=== PATIENT | female | born 1950 | race African-American/Black ===

== ENCOUNTER → 2016-09-22 | Outpatient (CLI) | payer MEDICARE, MEDICAID ==
[2016-05-03 11:50] VITALS: BP 191/82
[~2016-09-22] MED LIST: AMLO5TAB2 PO; ASCO500T2 PO; ASPI-482 PO; ATOR10TA PO; BENA10TA2 PO; CALC-67 PO; CYAN10005 PO; CYCL1DRO EACHEYE; DEXT15DR5 EACHEYE; DIPH1TAB PO; DIPH25TA64 PO; DOXY100C14 PO; ESOM40CA PO; FERR-26 PO; FURO-69 PO; GLIM2TAB PO; HYDR-2678 PO; HYDR200T PO; IPRA3AMP23 IH; LEVO500T38 PO; LEVO50TA5 PO; LORA10CA PO; MAGN71.5 PO; MECL12.5 PO; METO-269 PO; METO10TA81 PO; MOME110A2 IH; MYCO500T PO; ONDA8TAB12 PO; OXYC-323 PO; PANT40TA3 PO; POTA10CA PO; PRED20TA PO; PREG100C PO; PROAIR HFA8.5 GM IH; SUCR1TAB PO; SUCR1TAB29 PO; TRIA340. TP; WARF5TAB PO; [UNRECOGNIZED DRUG - CODE] MC; [UNRECOGNIZED DRUG - CODE] PO; mycophenolate
--- NOTE | 2016-09-22 14:55 | RAD ---
Bilateral shoulders, 6 views, 09/22/2016: History: Fall, pain The bony structures are demineralized. A transvenous pacemaker overlies the right upper chest. No fracture or dislocation is identified. No significant arthritic changes are evident. IMPRESSION: 1. Demineralization. 2. No acute shoulder abnormality is detected.
== END | disposition home or self-care (01) ==
LOC: RAD 14:07
PROVIDERS: ATTEND Internal Medicine
DX: M25.512 Pain in left shoulder (principal); W10.9XXD Fall (on) (from) unspecified stairs and steps, subsequent encounter
CPT/HCPCS: 73030

== ENCOUNTER 2017-08-13 11:35 | Inpatient (IN) | payer MEDICARE, MEDICAID ==
[2017-08-13 12:37] LABS: BILIRUBIN,URINE NEGATIVE (NEG); CLARITY,URINE CLEAR; COLOR,URINE YELLOW; GLUCOSE,URINE NEGATIVE (NEG); NITRITE,URINE NEGATIVE (NEG); PH,URINE 5.5; PROTEIN,URINE NEGATIVE (NEG-TRACE); UROBILINOGEN,URINE 0.2 mg/dL (0.2 mg/dL)
[2017-08-13 12:47] LABS: BACTERIA,URINE 0 /HPF (0-FEW); HYALINE CASTS, URINE MODERATE /HPF; RBC,URINE 0 /HPF (0-2); WBC,URINE 0 /HPF (0-4)
[2017-08-13 12:52] LABS: BASO % 0 % (0-3); EOS # 0.2 x10^3/uL (0.0-0.7); EOS % 1 % (0-3); HEMATOCRIT 33.7 % (36.0-47.0); LYMPH # 0.7 x10^3/uL (1.0-4.8); LYMPH % 6 % (24-48); MEAN CORPUSCULAR HEMOGLOBIN 29 pg (25-35); MEAN CORPUSCULAR HGB CONC 33 g/dL (31-37); MEAN CORPUSCULAR VOLUME 90 fL (79-100); MONO # 0.8 x10^3/uL (0.0-1.1); MONO % 6 % (0-9); NEUT # 11.1 x10^3uL (1.8-7.7); NEUT % 87 % (31-73); PLATELET COUNT 282 x10^3/uL (140-400); RED BLOOD COUNT 3.75 x10^6/uL (3.50-5.40); RED CELL DISTRIBUTION WIDTH 14.6 % (11.5-14.5); WHITE BLOOD COUNT 12.8 x10^3/uL (4.0-11.0)
[2017-08-13 12:57] LABS: ADD MAN DIFF? YES
[2017-08-13 13:01] LABS: INFLUENZA A PATIENT NEGATIVE (NEGATIVE); INFLUENZA B PATIENT NEGATIVE (NEGATIVE); OBC FLU VALID
[2017-08-13 13:03] LABS: ANION GAP 3 (6-14); BLOOD UREA NITROGEN 20 mg/dL (7-20); BUN/CREATININE RATIO 18 (6-20); CARBON DIOXIDE 30 mmol/L (21-32); CHLORIDE 98 mmol/L (98-107); CREATININE 1.1 mg/dL (0.6-1.0); GFR 59.9; GLUCOSE 103 mg/dL (70-99); SODIUM 131 mmol/L (136-145)
[2017-08-13 13:05] LABS: INR 1.2 (0.8-1.1); PROTHROMBIN TIME PATIENT 14.1 SEC (11.7-14.0)
[2017-08-13] MEDS: ACETAMINOPHEN 325 MG TABLET. PO (13:08)
[2017-08-13 13:10] LABS: POTASSIUM 5.8 mmol/L (3.5-5.1)
[2017-08-13 13:11] LABS: LACTIC ACID 0.9 mmol/L (0.4-2.0)
[2017-08-13 13:18] LABS: ALBUMIN 3.7 g/dL (3.4-5.0); ALBUMIN/GLOBULIN RATIO 0.8 (1.0-1.7); ALK PHOS 128 U/L (46-116); ALT (SGPT) 13 U/L (14-59); AST (SGOT) 24 U/L (15-37); TOTAL BILIRUBIN 0.4 mg/dL (0.2-1.0); TOTAL PROTEIN 8.5 g/dL (6.4-8.2)
[2017-08-13] MEDS: IV NORMAL SALINE 500ML BAG 500 ML IV (14:31)
[2017-08-13] MEDS: SODIUM POLYSTYRENE SULFONATE 15 GM/60 ML ORAL.SUSP. PO (14:37)
[2017-08-13 14:41] LABS: % BANDS 8 % (0-9); % BASOS 1 % (0-3); % EOS 6 % (0-5); % LYMPHS 5 % (24-48); % MONOS 8 % (0-10); % SEGS 72 % (35-66); OVALOCYTES MOD; PLT ESTIMATE ADEQUATE (ADEQUATE)
[2017-08-13 14:42] LABS: SCHISTOCYTES FEW
[2017-08-13] MEDS: WARFARIN 5 MG TABLET. PO (15:20)
[2017-08-13] MEDS ORDERED: HYDROcodone/APAP 5/325MG 1 TAB TABLET PO (22:00)
[2017-08-13] MEDS: PREGABALIN 50 MG CAPSULE PO (22:51)
[2017-08-14 05:57] LABS: ADD MAN DIFF? NO
[2017-08-14 06:15] LABS: BASO % 1 % (0-3); EOS # 0.2 x10^3/uL (0.0-0.7); EOS % 2 % (0-3); HEMATOCRIT 29.4 % (36.0-47.0); HEMOGLOBIN 9.7 g/dL (12.0-15.5); LYMPH # 1.5 x10^3/uL (1.0-4.8); LYMPH % 18 % (24-48); MEAN CORPUSCULAR HEMOGLOBIN 30 pg (25-35); MEAN CORPUSCULAR HGB CONC 33 g/dL (31-37); MEAN CORPUSCULAR VOLUME 89 fL (79-100); MONO # 1.1 x10^3/uL (0.0-1.1); MONO % 14 % (0-9); NEUT # 5.2 x10^3uL (1.8-7.7); NEUT % 65 % (31-73); PLATELET COUNT 233 x10^3/uL (140-400); RED BLOOD COUNT 3.29 x10^6/uL (3.50-5.40)
[2017-08-14 06:49] LABS: ALBUMIN 3.2 g/dL (3.4-5.0); ALBUMIN/GLOBULIN RATIO 0.9 (1.0-1.7); ALK PHOS 109 U/L (46-116); ALT (SGPT) 10 U/L (14-59); ANION GAP 7 (6-14); AST (SGOT) 30 U/L (15-37); BLOOD UREA NITROGEN 12 mg/dL (7-20); BUN/CREATININE RATIO 17 (6-20); CALCIUM 9.9 mg/dL (8.5-10.1); CARBON DIOXIDE 30 mmol/L (21-32); CHLORIDE 103 mmol/L (98-107); CREATININE 0.7 mg/dL (0.6-1.0); GLUCOSE 101 mg/dL (70-99); SODIUM 140 mmol/L (136-145); TOTAL BILIRUBIN 0.4 mg/dL (0.2-1.0); TOTAL PROTEIN 6.8 g/dL (6.4-8.2)
[2017-08-14] MEDS: BUDESONIDE 0.5 MG/2 ML NEBU. NEB ×2 (06:57→19:54)
[2017-08-14] MEDS: IPRATRPIUM/ALBUTEROL 0.5/2.5MG 3 ML NEBU. IH ×4 (06:58→19:54)
[2017-08-14] MEDS: LEVOTHYROXINE 25 MCG TABLET. PO (07:30)
[2017-08-14] MEDS: SUCRALFATE 1 GM TABLET. PO ×2 (07:47→18:01)
[2017-08-14] MEDS: METOCLOPRAMIDE 10 MG TABLET. PO ×4 (07:47→21:18)
[2017-08-14] MEDS ORDERED: ALBUTEROL SULFATE 2.5 MG/3 ML NEBU. NEB (08:00)
[2017-08-14] MEDS: FERROUS SULFATE 325 MG TABLET. PO ×3 (09:23→21:19)
[2017-08-14] MEDS: ASCORBIC ACID 500 MG TABLET PO (09:23)
[2017-08-14] MEDS: MYCOPHENOLATE MOFETIL 250 MG CAPSULE. PO ×2 (09:23→21:00)
[2017-08-14] MEDS: HYDROXYCHLOROQUINE 200 MG TABLET PO ×2 (09:23→21:17)
[2017-08-14] MEDS: cycloSPORINE 0.05% OPTH 1 DROP DROPERETTE OU ×2 (09:23→21:16)
[2017-08-14] MEDS: METOPROLOL SUCC 24HR ER 50 MG TAB.ER.24H. PO (09:24)
[2017-08-14] MEDS: CETIRIZINE HCL 10 MG TABLET. PO (09:24)
[2017-08-14] MEDS: LISINOPRIL 5 MG TABLET. PO (09:24)
[2017-08-14] MEDS: FUROSEMIDE 20 MG TABLET PO (09:24)
[2017-08-14] MEDS: MAGNESIUM OXIDE 400 MG TABLET PO (09:24)
[2017-08-14] MEDS: ASPIRIN ENTERIC COATED 81 MG TABLET.DR. PO ×2 (09:24→21:18)
[2017-08-14] MEDS: CYANOCOBALAMIN (VITAMIN B-12) 1,000 MCG TABLET. PO (09:24)
[2017-08-14] MEDS: CALCIUM CARB/VIT D3 500/200 TABLET. PO (09:24)
[2017-08-14] MEDS: PREGABALIN 50 MG CAPSULE PO ×2 (09:25→21:17)
[2017-08-14] MEDS: POLYVINYL ALCOHOL 1.4% OPHTH SOLUTION 15ML BOTTLE. OU ×4 (11:43→21:15)
[2017-08-14] MEDS: IV NORMAL SALINE 1000ML BAG 1,000 ML IV (14:16)
[2017-08-14] MEDS: WARFARIN 4 MG TABLET. PO (18:01)
[2017-08-14] MEDS: ONDANSETRON ODT 4 MG TAB.RAPDIS. PO (18:39)
[2017-08-14] MEDS: oxyCODONE/APAP 5/325 1 TAB TABLET PO (18:39)
[2017-08-14] MEDS: PANTOPRAZOLE 40 MG TABLET.DR. PO (18:39)
[2017-08-14] MEDS: GLIMEPIRIDE 2 MG TABLET. PO (18:39)
[2017-08-14] MEDS: ATORVASTATIN CALCIUM 10 MG TABLET. PO (21:17)
[2017-08-14] MEDS: MONTELUKAST SODIUM 10 MG TABLET. PO (21:17)
[2017-08-15 04:41] LABS: ADD MAN DIFF? NO
[2017-08-15 04:49] LABS: BASO # 0.1 x10^3/uL (0.0-0.2); BASO % 1 % (0-3); EOS # 0.2 x10^3/uL (0.0-0.7); EOS % 2 % (0-3); HEMATOCRIT 26.5 % (36.0-47.0); HEMOGLOBIN 8.7 g/dL (12.0-15.5); LYMPH # 1.2 x10^3/uL (1.0-4.8); LYMPH % 14 % (24-48); MEAN CORPUSCULAR HEMOGLOBIN 30 pg (25-35); MEAN CORPUSCULAR HGB CONC 33 g/dL (31-37); MEAN CORPUSCULAR VOLUME 90 fL (79-100); MONO # 1.1 x10^3/uL (0.0-1.1); MONO % 13 % (0-9); NEUT % 70 % (31-73); PLATELET COUNT 221 x10^3/uL (140-400); RED BLOOD COUNT 2.95 x10^6/uL (3.50-5.40); RED CELL DISTRIBUTION WIDTH 14.1 % (11.5-14.5); WHITE BLOOD COUNT 8.5 x10^3/uL (4.0-11.0)
[2017-08-15 05:09] LABS: INR 1.2 (0.8-1.1); PROTHROMBIN TIME PATIENT 14.9 SEC (11.7-14.0)
[2017-08-15 05:12] LABS: ANION GAP 4 (6-14); BLOOD UREA NITROGEN 8 mg/dL (7-20); CALCIUM 9.2 mg/dL (8.5-10.1); CARBON DIOXIDE 33 mmol/L (21-32); CHLORIDE 103 mmol/L (98-107); CREATINE KINASE 15 U/L (26-192); CREATININE 0.7 mg/dL (0.6-1.0); GLUCOSE 95 mg/dL (70-99); POTASSIUM 3.6 mmol/L (3.5-5.1); SODIUM 140 mmol/L (136-145)
[2017-08-15] MEDS: METOCLOPRAMIDE 10 MG TABLET. PO ×4 (06:20→22:20)
[2017-08-15] MEDS: LEVOTHYROXINE 25 MCG TABLET. PO (06:20)
[2017-08-15] MEDS: PANTOPRAZOLE 40 MG TABLET.DR. PO (06:20)
[2017-08-15] MEDS: BUDESONIDE 0.5 MG/2 ML NEBU. NEB ×2 (07:32→18:26)
[2017-08-15] MEDS: IPRATRPIUM/ALBUTEROL 0.5/2.5MG 3 ML NEBU. IH ×4 (07:32→18:26)
[2017-08-15] MEDS: ASPIRIN ENTERIC COATED 81 MG TABLET.DR. PO ×2 (08:26→22:20)
[2017-08-15] MEDS: GLIMEPIRIDE 2 MG TABLET. PO (08:26)
[2017-08-15] MEDS: ASCORBIC ACID 500 MG TABLET PO (08:26)
[2017-08-15] MEDS: FERROUS SULFATE 325 MG TABLET. PO ×3 (08:27→22:19)
[2017-08-15] MEDS: CETIRIZINE HCL 10 MG TABLET. PO (08:27)
[2017-08-15] MEDS: METOPROLOL SUCC 24HR ER 50 MG TAB.ER.24H. PO (08:27)
[2017-08-15] MEDS: CALCIUM CARB/VIT D3 500/200 TABLET. PO (08:27)
[2017-08-15] MEDS: HYDROXYCHLOROQUINE 200 MG TABLET PO ×2 (08:28→22:20)
[2017-08-15] MEDS: LISINOPRIL 5 MG TABLET. PO (08:33)
[2017-08-15] MEDS: MAGNESIUM OXIDE 400 MG TABLET PO (08:33)
[2017-08-15] MEDS: SUCRALFATE 1 GM TABLET. PO ×2 (08:33→17:23)
[2017-08-15] MEDS: MYCOPHENOLATE MOFETIL 250 MG CAPSULE. PO (08:34)
[2017-08-15] MEDS: PREGABALIN 50 MG CAPSULE PO ×2 (08:38→22:19)
[2017-08-15] MEDS: IV NORMAL SALINE 1000ML BAG 1,000 ML IV (08:43)
[2017-08-15] MEDS: POLYVINYL ALCOHOL 1.4% OPHTH SOLUTION 15ML BOTTLE. OU ×4 (08:43→22:21)
[2017-08-15] MEDS: oxyCODONE/APAP 5/325 1 TAB TABLET PO ×4 (08:43→22:23)
[2017-08-15] MEDS: CYANOCOBALAMIN (VITAMIN B-12) 1,000 MCG TABLET. PO (09:00)
[2017-08-15] MEDS: cycloSPORINE 0.05% OPTH 1 DROP DROPERETTE OU ×2 (11:07→22:21)
[2017-08-15] MEDS: ONDANSETRON ODT 4 MG TAB.RAPDIS. PO (14:12)
[2017-08-15] MEDS: WARFARIN 4 MG TABLET. PO (17:24)
[2017-08-15] MEDS: MONTELUKAST SODIUM 10 MG TABLET. PO (22:19)
[2017-08-15] MEDS: ATORVASTATIN CALCIUM 10 MG TABLET. PO (22:19)
[2017-08-16] MEDS: IV NORMAL SALINE 1000ML BAG 1,000 ML IV ×2 (02:38→23:46)
[2017-08-16] MEDS: oxyCODONE/APAP 5/325 1 TAB TABLET PO ×5 (02:38→21:46)
[2017-08-16] MEDS: MECLIZINE HCL 12.5 MG TABLET. PO ×2 (02:38→21:52)
[2017-08-16 05:51] LABS: INR 1.3 (0.8-1.1); PROTHROMBIN TIME PATIENT 15.8 SEC (11.7-14.0)
[2017-08-16] MEDS: BUDESONIDE 0.5 MG/2 ML NEBU. NEB ×2 (07:13→18:22)
[2017-08-16] MEDS: IPRATRPIUM/ALBUTEROL 0.5/2.5MG 3 ML NEBU. IH ×4 (07:14→18:22)
[2017-08-16 07:28] LABS: POC GLUCOSE 84 mg/dL (70-99)
[2017-08-16] MEDS: METOCLOPRAMIDE 10 MG TABLET. PO ×4 (07:47→21:52)
[2017-08-16] MEDS: LEVOTHYROXINE 25 MCG TABLET. PO (07:47)
[2017-08-16] MEDS: PANTOPRAZOLE 40 MG TABLET.DR. PO (07:47)
[2017-08-16] MEDS: SUCRALFATE 1 GM TABLET. PO ×2 (07:47→16:37)
[2017-08-16] MEDS: CETIRIZINE HCL 10 MG TABLET. PO (09:59)
[2017-08-16] MEDS: LISINOPRIL 5 MG TABLET. PO (09:59)
[2017-08-16] MEDS: CYANOCOBALAMIN (VITAMIN B-12) 1,000 MCG TABLET. PO (09:59)
[2017-08-16] MEDS: MAGNESIUM OXIDE 400 MG TABLET PO (09:59)
[2017-08-16] MEDS: HYDROXYCHLOROQUINE 200 MG TABLET PO ×2 (10:00→21:46)
[2017-08-16] MEDS: CALCIUM CARB/VIT D3 500/200 TABLET. PO (10:00)
[2017-08-16] MEDS: GLIMEPIRIDE 2 MG TABLET. PO (10:00)
[2017-08-16] MEDS: ASPIRIN ENTERIC COATED 81 MG TABLET.DR. PO ×2 (10:00→21:46)
[2017-08-16] MEDS: ASCORBIC ACID 500 MG TABLET PO (10:00)
[2017-08-16] MEDS: METOPROLOL SUCC 24HR ER 50 MG TAB.ER.24H. PO (10:00)
[2017-08-16] MEDS: FERROUS SULFATE 325 MG TABLET. PO ×3 (10:01→21:46)
[2017-08-16] MEDS: POLYVINYL ALCOHOL 1.4% OPHTH SOLUTION 15ML BOTTLE. OU ×4 (10:03→21:45)
[2017-08-16] MEDS: cycloSPORINE 0.05% OPTH 1 DROP DROPERETTE OU ×2 (10:03→21:45)
[2017-08-16] MEDS: MYCOPHENOLATE MOFETIL 250 MG CAPSULE. PO (10:25)
[2017-08-16] MEDS: PREGABALIN 50 MG CAPSULE PO ×2 (10:25→21:46)
[2017-08-16] MEDS: VANCOMYCIN 2 GM in IV DEXTROSE 5% 500 ML IV (12:57)
[2017-08-16] MEDS: ONDANSETRON ODT 4 MG TAB.RAPDIS. PO (13:01)
[2017-08-16] MEDS: VANCOMYCIN PER PHARMACY MC (14:49)
[2017-08-16] MEDS: WARFARIN 4 MG TABLET. PO (16:37)
[2017-08-16] MEDS: MEROPENEM IV Push 500 MG VIAL. IVP ×2 (17:24→23:45)
[2017-08-16] MEDS ORDERED: MEROPENEM 500 MG in IV NORMAL SALINE 50ML 50 ML IV (18:00)
[2017-08-16] MEDS: MONTELUKAST SODIUM 10 MG TABLET. PO (21:46)
[2017-08-16] MEDS: ATORVASTATIN CALCIUM 10 MG TABLET. PO (21:46)
[2017-08-17] MEDS: MEROPENEM IV Push 500 MG VIAL. IVP ×3 (06:01→18:25)
[2017-08-17] MEDS: LEVOTHYROXINE 25 MCG TABLET. PO (06:01)
[2017-08-17 06:32] LABS: INR 1.5 (0.8-1.1); PROTHROMBIN TIME PATIENT 16.8 SEC (11.7-14.0)
[2017-08-17] MEDS: ONDANSETRON ODT 4 MG TAB.RAPDIS. PO (08:26)
[2017-08-17] MEDS: cycloSPORINE 0.05% OPTH 1 DROP DROPERETTE OU ×2 (08:29→22:02)
[2017-08-17] MEDS: CALCIUM CARB/VIT D3 500/200 TABLET. PO (08:30)
[2017-08-17] MEDS: POLYVINYL ALCOHOL 1.4% OPHTH SOLUTION 15ML BOTTLE. OU ×4 (08:30→22:18)
[2017-08-17] MEDS: PANTOPRAZOLE 40 MG TABLET.DR. PO (08:31)
[2017-08-17] MEDS: CYANOCOBALAMIN (VITAMIN B-12) 1,000 MCG TABLET. PO (08:31)
[2017-08-17] MEDS: GLIMEPIRIDE 2 MG TABLET. PO (08:31)
[2017-08-17] MEDS: HYDROXYCHLOROQUINE 200 MG TABLET PO ×2 (08:31→22:03)
[2017-08-17] MEDS: ASCORBIC ACID 500 MG TABLET PO (08:32)
[2017-08-17] MEDS: PREGABALIN 50 MG CAPSULE PO ×2 (08:32→22:02)
[2017-08-17] MEDS: CETIRIZINE HCL 10 MG TABLET. PO (08:32)
[2017-08-17] MEDS: FERROUS SULFATE 325 MG TABLET. PO ×3 (08:33→22:03)
[2017-08-17] MEDS: MYCOPHENOLATE MOFETIL 250 MG CAPSULE. PO (08:33)
[2017-08-17] MEDS: ASPIRIN ENTERIC COATED 81 MG TABLET.DR. PO ×2 (08:33→22:03)
[2017-08-17] MEDS: METOPROLOL SUCC 24HR ER 50 MG TAB.ER.24H. PO (08:33)
[2017-08-17] MEDS: METOCLOPRAMIDE 10 MG TABLET. PO ×4 (08:33→22:03)
[2017-08-17] MEDS: MAGNESIUM OXIDE 400 MG TABLET PO (08:34)
[2017-08-17] MEDS: oxyCODONE/APAP 5/325 1 TAB TABLET PO ×3 (08:34→22:07)
[2017-08-17] MEDS: LISINOPRIL 5 MG TABLET. PO (08:34)
[2017-08-17] MEDS: SUCRALFATE 1 GM TABLET. PO ×3 (08:41→16:48)
[2017-08-17] MEDS: BUDESONIDE 0.5 MG/2 ML NEBU. NEB ×2 (09:01→19:32)
[2017-08-17] MEDS: IPRATRPIUM/ALBUTEROL 0.5/2.5MG 3 ML NEBU. IH ×5 (09:01→19:32)
[2017-08-17] MEDS ORDERED: VANCOMYCIN 1.25 GM in IV 1/2 NORMAL SALINE 250 ML IV (13:00)
[2017-08-17] MEDS: WARFARIN 4 MG TABLET. PO (16:17)
[2017-08-17] MEDS: MONTELUKAST SODIUM 10 MG TABLET. PO (22:03)
[2017-08-17] MEDS: ATORVASTATIN CALCIUM 10 MG TABLET. PO (22:03)
[2017-08-17] MEDS: MECLIZINE HCL 12.5 MG TABLET. PO (22:06)
[2017-08-17] MEDS: ACETAMINOPHEN 325 MG TABLET. PO (22:21)
[2017-08-18] MEDS: MEROPENEM IV Push 500 MG VIAL. IVP ×2 (00:16→06:08)
[2017-08-18] MEDS: oxyCODONE/APAP 5/325 1 TAB TABLET PO ×4 (03:35→20:36)
[2017-08-18 06:08] LABS: ADD MAN DIFF? NO
[2017-08-18] MEDS: LEVOTHYROXINE 25 MCG TABLET. PO (06:08)
[2017-08-18 06:28] LABS: BASO # 0.1 x10^3/uL (0.0-0.2); BASO % 1 % (0-3); EOS # 0.5 x10^3/uL (0.0-0.7); EOS % 6 % (0-3); HEMOGLOBIN 8.5 g/dL (12.0-15.5); LYMPH # 1.5 x10^3/uL (1.0-4.8); LYMPH % 18 % (24-48); MEAN CORPUSCULAR HEMOGLOBIN 29 pg (25-35); MEAN CORPUSCULAR HGB CONC 33 g/dL (31-37); MEAN CORPUSCULAR VOLUME 89 fL (79-100); MONO # 0.8 x10^3/uL (0.0-1.1); MONO % 10 % (0-9); NEUT # 5.3 x10^3uL (1.8-7.7); NEUT % 65 % (31-73); PLATELET COUNT 245 x10^3/uL (140-400); RED BLOOD COUNT 2.91 x10^6/uL (3.50-5.40); RED CELL DISTRIBUTION WIDTH 14.3 % (11.5-14.5); WHITE BLOOD COUNT 8.1 x10^3/uL (4.0-11.0)
[2017-08-18] MEDS: ONDANSETRON ODT 4 MG TAB.RAPDIS. PO ×2 (06:35→09:47)
[2017-08-18 06:36] LABS: INR 1.6 (0.8-1.1); PROTHROMBIN TIME PATIENT 18.3 SEC (11.7-14.0)
[2017-08-18 06:46] LABS: ANION GAP 6 (6-14); BLOOD UREA NITROGEN 7 mg/dL (7-20); CALCIUM 9.6 mg/dL (8.5-10.1); CARBON DIOXIDE 32 mmol/L (21-32); CHLORIDE 107 mmol/L (98-107); CREATININE 0.7 mg/dL (0.6-1.0); GLUCOSE 92 mg/dL (70-99); POTASSIUM 3.5 mmol/L (3.5-5.1); SODIUM 145 mmol/L (136-145)
[2017-08-18] MEDS: BUDESONIDE 0.5 MG/2 ML NEBU. NEB ×2 (07:17→19:36)
[2017-08-18] MEDS: METOCLOPRAMIDE 10 MG TABLET. PO ×4 (07:30→20:35)
[2017-08-18] MEDS: SUCRALFATE 1 GM TABLET. PO ×2 (07:30→17:04)
[2017-08-18] MEDS: PANTOPRAZOLE 40 MG TABLET.DR. PO (07:30)
[2017-08-18] MEDS: POLYVINYL ALCOHOL 1.4% OPHTH SOLUTION 15ML BOTTLE. OU ×4 (09:29→20:37)
[2017-08-18] MEDS: MAGNESIUM OXIDE 400 MG TABLET PO (09:30)
[2017-08-18] MEDS: PREGABALIN 50 MG CAPSULE PO ×2 (09:31→20:36)
[2017-08-18] MEDS: FERROUS SULFATE 325 MG TABLET. PO ×3 (09:31→20:35)
[2017-08-18] MEDS: ASCORBIC ACID 500 MG TABLET PO (09:32)
[2017-08-18] MEDS: CYANOCOBALAMIN (VITAMIN B-12) 1,000 MCG TABLET. PO (09:32)
[2017-08-18] MEDS: CALCIUM CARB/VIT D3 500/200 TABLET. PO (09:32)
[2017-08-18] MEDS: LISINOPRIL 5 MG TABLET. PO (09:33)
[2017-08-18] MEDS: ASPIRIN ENTERIC COATED 81 MG TABLET.DR. PO ×2 (09:33→20:35)
[2017-08-18] MEDS: HYDROXYCHLOROQUINE 200 MG TABLET PO ×2 (09:34→20:35)
[2017-08-18] MEDS: MYCOPHENOLATE MOFETIL 250 MG CAPSULE. PO (09:34)
[2017-08-18] MEDS: METOPROLOL SUCC 24HR ER 50 MG TAB.ER.24H. PO (09:35)
[2017-08-18] MEDS: GLIMEPIRIDE 2 MG TABLET. PO (09:36)
[2017-08-18] MEDS: cycloSPORINE 0.05% OPTH 1 DROP DROPERETTE OU ×2 (09:36→20:37)
[2017-08-18] MEDS: CETIRIZINE HCL 10 MG TABLET. PO (09:36)
[2017-08-18] MEDS: CEFPODOXIME PROXETIL 100 MG TABLET. PO ×2 (10:59→20:36)
[2017-08-18] MEDS: IPRATRPIUM/ALBUTEROL 0.5/2.5MG 3 ML NEBU. IH ×3 (11:01→19:36)
[2017-08-18] MEDS: WARFARIN 5 MG TABLET. PO (16:35)
[2017-08-18] MEDS: ATORVASTATIN CALCIUM 10 MG TABLET. PO (20:35)
[2017-08-18] MEDS: MONTELUKAST SODIUM 10 MG TABLET. PO (20:36)
[2017-08-19] MEDS: IPRATRPIUM/ALBUTEROL 0.5/2.5MG 3 ML NEBU. IH ×3 (07:55→15:14)
[2017-08-19] MEDS: BUDESONIDE 0.5 MG/2 ML NEBU. NEB (07:55)
[2017-08-19] MEDS: ONDANSETRON ODT 4 MG TAB.RAPDIS. PO (08:28)
[2017-08-19] MEDS: LISINOPRIL 5 MG TABLET. PO (08:29)
[2017-08-19 08:30] LABS: INR 1.8 (0.8-1.1); PROTHROMBIN TIME PATIENT 19.4 SEC (11.7-14.0)
[2017-08-19] MEDS: METOPROLOL SUCC 24HR ER 50 MG TAB.ER.24H. PO (08:30)
[2017-08-19] MEDS: oxyCODONE/APAP 5/325 1 TAB TABLET PO ×2 (08:31→13:54)
[2017-08-19] MEDS: POLYVINYL ALCOHOL 1.4% OPHTH SOLUTION 15ML BOTTLE. OU ×3 (08:31→17:05)
[2017-08-19] MEDS: CYANOCOBALAMIN (VITAMIN B-12) 1,000 MCG TABLET. PO (08:34)
[2017-08-19] MEDS: ASCORBIC ACID 500 MG TABLET PO (08:34)
[2017-08-19] MEDS: FERROUS SULFATE 325 MG TABLET. PO ×2 (08:34→13:54)
[2017-08-19] MEDS: HYDROXYCHLOROQUINE 200 MG TABLET PO (08:34)
[2017-08-19] MEDS: MAGNESIUM OXIDE 400 MG TABLET PO (08:36)
[2017-08-19] MEDS: METOCLOPRAMIDE 10 MG TABLET. PO ×3 (08:36→17:04)
[2017-08-19] MEDS: CALCIUM CARB/VIT D3 500/200 TABLET. PO (08:36)
[2017-08-19] MEDS: CEFPODOXIME PROXETIL 100 MG TABLET. PO (08:36)
[2017-08-19] MEDS: PREGABALIN 50 MG CAPSULE PO (08:37)
[2017-08-19] MEDS: PANTOPRAZOLE 40 MG TABLET.DR. PO (08:38)
[2017-08-19] MEDS: ASPIRIN ENTERIC COATED 81 MG TABLET.DR. PO (08:38)
[2017-08-19] MEDS: CETIRIZINE HCL 10 MG TABLET. PO (08:43)
[2017-08-19] MEDS: cycloSPORINE 0.05% OPTH 1 DROP DROPERETTE OU (08:44)
[2017-08-19] MEDS: MYCOPHENOLATE MOFETIL 250 MG CAPSULE. PO (08:44)
[2017-08-19] MEDS: GLIMEPIRIDE 2 MG TABLET. PO (08:45)
[2017-08-19] MEDS: LEVOTHYROXINE 25 MCG TABLET. PO (10:30)
[2017-08-19] MEDS: SUCRALFATE 1 GM TABLET. PO ×2 (11:21→17:05)
[2017-08-19] MEDS: WARFARIN 5 MG TABLET. PO (17:04)
== END 2017-08-19 17:00 | disposition home health service (06) | DRG 871 ==
LOC: ER 11:35 → 5 SOUTH 14:09
DX: A41.9 Sepsis, unspecified organism (principal); N17.0 Acute kidney failure with tubular necrosis; E87.1 Hypo-osmolality and hyponatremia; R78.81 Bacteremia; J44.0 Chronic obstructive pulmonary disease with (acute) lower respiratory infection; I48.2 Chronic atrial fibrillation; J84.10 Pulmonary fibrosis, unspecified; E87.5 Hyperkalemia; J20.9 Acute bronchitis, unspecified; E03.9 Hypothyroidism, unspecified; E11.9 Type 2 diabetes mellitus without complications; I10 Essential (primary) hypertension; K21.9 Gastro-esophageal reflux disease without esophagitis; M79.7 Fibromyalgia; M81.0 Age-related osteoporosis without current pathological fracture; Z79.01 Long term (current) use of anticoagulants; Z82.49 Family history of ischemic heart disease and other diseases of the circulatory system; Z83.3 Family history of diabetes mellitus; Z86.711 Personal history of pulmonary embolism; Z86.718 Personal history of other venous thrombosis and embolism; Z88.1 Allergy status to other antibiotic agents; Z90.710 Acquired absence of both cervix and uterus; Z95.0 Presence of cardiac pacemaker; Z99.81 Dependence on supplemental oxygen; M19.90 Unspecified osteoarthritis, unspecified site; Z90.49 Acquired absence of other specified parts of digestive tract; Z88.6 Allergy status to analgesic agent; Z88.5 Allergy status to narcotic agent; Z88.0 Allergy status to penicillin; Z88.2 Allergy status to sulfonamides; Z88.8 Allergy status to other drugs, medicaments and biological substances
CPT/HCPCS: 36415; 71045; 80048; 80053; 81001; 82550; 82962; 83605; 85007; 85025; 85610; 87040; 87205; 87804; 87804-59; 93005; 94640; 94760; 96360; 97116-GP; 97162-GP; 97165-GO; 97530-GO; 99285; 99285-25; J1650; J2185; J3370; J7030; J7040; J7517; J7620; J7626; J8597; Q0162

== ENCOUNTER → 2017-09-10 | Outpatient (CLI) | payer MEDICARE, MEDICAID ==
[2017-09-10 14:39] LABS: ANION GAP 9 (6-14); BLOOD UREA NITROGEN 6 mg/dL (7-20); CALCIUM 9.4 mg/dL (8.5-10.1); CARBON DIOXIDE 30 mmol/L (21-32); CHLORIDE 97 mmol/L (98-107); CREATININE 0.8 mg/dL (0.6-1.0); GFR 86.3; GLUCOSE 97 mg/dL (70-99); POTASSIUM 4.2 mmol/L (3.5-5.1); SODIUM 136 mmol/L (136-145)
== END | disposition home or self-care (01) ==
LOC: SPEC 14:04
DX: J84.10 Pulmonary fibrosis, unspecified (principal); N17.9 Acute kidney failure, unspecified
CPT/HCPCS: 36415; 80048

== ENCOUNTER → 2018-02-22 | Outpatient (CLI) | payer MEDICARE, MEDICAID ==
[2017-08-19 14:35] VITALS: BP 142/79
[~2018-02-22] MED LIST changes: -BENA10TA2 PO; +BENA10TA4 PO; +CALC-31 PO; -CALC-67 PO; +CEFP200T PO; +ESOM40CA47 PO; -FERR-26 PO; +FERR325T14 PO; +GLIM2TAB2 PO; +HYDR-2867 PO; -HYDR200T PO; +HYDR200T71 PO; -LEVO500T38 PO; +LEVO500T59 PO; +MAGN400T3 PO; +MONT10TA9 PO; -POTA10CA PO; +POTA10TA12 PO; -SUCR1TAB29 PO; +SUCR1TAB35 PO; +WARF-78 PO; -WARF5TAB PO; +XOPENEX HFA15 GM IH
--- NOTE | 2018-02-24 11:15 | RAD ---
DATE: 02/22/2018 EXAM: MAMMO MOHAN SCREENING BILATERAL HISTORY: routine screening evaluation. COMPARISON: 06/30/2016, 06/18/2015, 05/08/2014, 05/07/2013, 05/03/2012 Bilateral CC and MLO views of the breasts were performed. Bilateral breast tomosynthesis was performed in CC and MLO projections. This study was interpreted with the benefit of Computerized Aided Detection (CAD). The breast parenchyma is dense, which could reduce the sensitivity of mammography. Breast parenchyma level density D. FINDINGS: Benign calcifications are present. No suspicious masses, microcalcifications or architectural distortion is present to suggest malignancy in either breast. The visualized axillae are unremarkable. IMPRESSION: No mammographic evidence of malignancy. BI-RADS CATEGORY: 2 BENIGN FINDING(S) RECOMMENDED FOLLOW-UP: 12M 12 MONTH FOLLOW-UP Annual screening mammography is recommended, unless clinically indicated sooner based on symptoms or change in physical exam. PQRS compliance statement: Patient information was entered into a reminder system with a target due date for the next mammogram. Mammography is a sensitive method for finding small breast cancers, but it does not detect them all and is not a substitute for careful clinical examination. A negative mammogram does not negate a clinically suspicious finding and should not result in delay in biopsying a clinically suspicious abnormality. "Our facility is accredited by the [employer] Mammography Program."
== END | disposition home or self-care (01) ==
LOC: MAMMO 13:50
PROVIDERS: ATTEND Internal Medicine
DX: Z12.31 Encounter for screening mammogram for malignant neoplasm of breast (principal)
CPT/HCPCS: 77063; 77067

== ENCOUNTER 2018-08-31 21:44 | Inpatient (IN) | payer MEDICARE, MEDICAID ==
[~2018-08-31] VITALS: Ht 160 cm; Wt 67.1 kg
[~2018-08-31 21:44] MED LIST changes: +ALBU2.5V8 IH; +AMLO5TAB10 PO; -AMLO5TAB2 PO; -OXYC-323 PO; +OXYC1TAB15 PO; -PROAIR HFA8.5 GM IH
[2018-08-31] MEDS ORDERED: IV NORMAL SALINE 1000ML BAG 1,000 ML IV ONE ×2 (22:30→23:45)
[2018-08-31 22:54] LABS: BILIRUBIN,URINE NEGATIVE (NEG); CLARITY,URINE CLEAR; COLOR,URINE YELLOW; NITRITE,URINE NEGATIVE (NEG); PH,URINE 5.5; PROTEIN,URINE 30 mg/dL (NEG-TRACE); UROBILINOGEN,URINE 0.2 mg/dL (0.2 mg/dL)
[2018-08-31 23:00] LABS: BACTERIA,URINE MANY /HPF (0-FEW); RBC,URINE OCC /HPF (0-2); WBC,URINE >40 /HPF (0-4)
[2018-08-31 23:02] LABS: RED BLOOD COUNT 3.24 x10^6/uL (3.50-5.40); WHITE BLOOD COUNT 35.6 x10^3/uL (4.0-11.0)
[2018-08-31 23:03] LABS: BASO # 0.2 x10^3/uL (0.0-0.2); BASO % 1 % (0-3); EOS % 0 % (0-3); HEMATOCRIT 28.1 % (36.0-47.0); LYMPH # 0.2 x10^3/uL (1.0-4.8); LYMPH % 1 % (24-48); MEAN CORPUSCULAR HEMOGLOBIN 28 pg (25-35); MEAN CORPUSCULAR HGB CONC 32 g/dL (31-37); MEAN CORPUSCULAR VOLUME 87 fL (79-100); MONO # 3.1 x10^3/uL (0.0-1.1); MONO % 9 % (0-9); NEUT % 90 % (31-73); PLATELET COUNT 364 x10^3/uL (140-400); RED CELL DISTRIBUTION WIDTH 13.5 % (11.5-14.5)
--- NOTE | 2018-08-31 23:09 | RAD ---
Chest radiograph 08/31/2018 10:23 PM INDICATION: Cough, weakness COMPARISON: August 13, 2017 TECHNIQUE: Portable upright frontal view of the chest is provided. FINDINGS: The cardiomediastinal silhouette is within normal limits. Right chest wall cardiac device is in similar position. There are no pleural effusions. There is no pulmonary vascular congestion. There is no pneumothorax. Chronic interstitial changes are noted. There may be more confluent interstitial opacity in the right upper lobe. No significant osseous abnormality is identified. IMPRESSION: Chronic interstitial changes with suggestion of confluent interstitial opacity in the right upper lobe. Consideration may be given for fibrotic changes versus interstitial pneumonitis. Electronically signed by: Anabel Lynch MD (08/31/2018 11:06 PM) [facility]
[2018-08-31 23:12] LABS: PROTHROMBIN TIME PATIENT 27.9 SEC (11.7-14.0)
[2018-08-31 23:13] LABS: CALCIUM 10.1 mg/dL (8.5-10.1); GFR 29.9; POTASSIUM 5.5 mmol/L (3.5-5.1)
[2018-08-31 23:19] LABS: ALBUMIN 2.9 g/dL (3.4-5.0); ALBUMIN/GLOBULIN RATIO 0.6 (1.0-1.7); MAGNESIUM 1.7 mg/dL (1.8-2.4); TOTAL BILIRUBIN 0.7 mg/dL (0.2-1.0); TOTAL PROTEIN 8.1 g/dL (6.4-8.2)
--- NOTE | 2018-08-31 23:23 | RAD ---
PQRS Compliance Statement: One or more of the following individualized dose reduction techniques were utilized for this examination: 1. Automated exposure control 2. Adjustment of the mA and/or kV according to patient size 3. Use of iterative reconstruction technique CT head without contrast 08/31/2018 10:23 PM INDICATION: Weakness, altered mental status COMPARISON: CT head February 15, 2016 TECHNIQUE: Multiple axial CT images of the head were obtained from skull base through the vertex without intravenous contrast. FINDINGS: Head: Ventricles, sulci and basal cisterns are within normal limits. There is no hydrocephalus. Haney-white matter differentiation is normal. There is no acute intracranial hemorrhage. There is no mass, mass effect or midline shift. Posterior fossa is normal in appearance. Visualized portions of the orbits are normal with exception of bilateral lens replacement. Paranasal sinuses are well aerated. Mastoid air cells are well aerated. Scalp and calvaria are normal. IMPRESSION: No acute intracranial hemorrhage. Electronically signed by: Anabel Lynch MD (08/31/2018 11:20 PM) [facility]
[2018-08-31 23:28] LABS: % BANDS 14 % (0-9); % MONOS 10 % (0-10); % SEGS 76 % (35-66); PLT ESTIMATE ADEQUATE (ADEQUATE)
[2018-08-31 23:29] LABS: POIKILOCYTOSIS MOD
[2018-08-31 23:30] LABS: ACANTHOCYTES OCC; BIZZARE CELLS FEW; OVALOCYTES FEW; SCHISTOCYTES FEW
[2018-08-31 23:32] LABS: TOXIC VACUOLATION SLIGHT
[2018-08-31 23:34] LABS: CREATINE KINASE 68 U/L (26-192)
--- NOTE | 2018-08-31 23:37 | PHYS DOC ---
Past Medical History Past Medical History: Arthritis, Asthma, COPD, Diabetes-Type II, Fibromyalgia, GERD, Hypertension, Hypothyroid, IBS, Other Additional Past Medical Histor: Sick Sinus Syndrome, Sjorgen Syndrome, Osteoporosis, PE, Shingles, MGUS Past Medical History Limited due to poor historian Past Surgical History: Cholecystectomy, Hysterectomy, Pacemaker, Tonsillectomy , Other Additional Past Surgical Histo: pacemaker Past Surgical History Limited due to poor historian Alcohol Use: None Drug Use: None Social History Limited due to poor historian Adult General Chief Complaint Chief Complaint: WEAKNESS/GENERALIZED HPI HPI 68 y/o female presents via EMS with report of generalized weakness over the last several days.. Patient reports she "hurts all over". Denies trauma. Reports some associated cough. Denies fever/chills. Son reports he presented to patients home and noted patient unable to get out of bed and therefore called EMS. HPI limited due to patient's current condition. Review of Systems Review of Systems Constitutional: Denies fever or chills [] Eyes: Denies change in visual acuity, redness, or eye pain [] HENT: Denies nasal congestion or sore throat [] Respiratory: Reports cough and shortness of breath [] Cardiovascular: Denies chest pain or palpitations GI: Denies abdominal pain, nausea, vomiting, or diarrhea [] Neurologic: Reports generalized weakness ROS limited due to poor historian Current Medications Current Medications Current Medications Medications (Trade) Dose Ordered Sig/Ammon Start Time Stop Time Status Last Admin Dose Admin Sodium Chloride 1,000 ml @ 1,000 mls/hr 1X ONCE 08/31/18 22:30 08/31/18 23:29 DC 09/01/18 00:11 1,000 MLS/HR Allergies Allergies Allergies Coded Allergies Type Severity Reaction Last Updated Verified Cephalexin Monohydrate Allergy Intermediate 05/03/16 Yes Penicillins Allergy Intermediate 05/03/16 Yes aspirin Allergy Intermediate 05/03/16 Yes celecoxib Allergy Intermediate 05/03/16 Yes cephalexin Allergy Intermediate 05/03/16 Yes clindamycin Allergy Intermediate 05/03/16 Yes codeine Allergy Intermediate 05/03/16 Yes cyclobenzaprine Allergy Intermediate 05/03/16 Yes cyclobenzaprine HCl Allergy Intermediate 05/03/16 Yes doxycycline Allergy Intermediate has tolerated Doxycycline prev.admissions Yes erythromycin base Allergy Intermediate 05/03/16 Yes rofecoxib Allergy Intermediate 05/03/16 Yes sulfamethoxazole Allergy Intermediate 05/03/16 Yes sulfanilamide Allergy Intermediate 05/03/16 Yes trimethoprim Allergy Intermediate 05/03/16 Yes valdecoxib Allergy Intermediate 05/03/16 Yes Physical Exam Physical Exam Constitutional: Well developed, weak and appears ill. [] HENT: Normocephalic, atraumatic, oropharynx dry Eyes: Conjunctiva normal, no discharge. [] Neck: Normal range of motion, no tenderness, supple, no meningeal signs Cardiovascular: Heart rate regular rhythm, no murmur [] Lungs & Thorax: Diminished at bases, Coarse breath sounds. Abdomen: Soft, no tenderness Skin: Warm, dry, no erythema, no rash. [] Back: No tenderness, no CVA tenderness. [] Extremities: No tenderness, ROM intact, no edema. [] Neurologic: Alert and oriented , normal motor function, normal sensory function , no focal deficits noted. [] Current Patient Data Vital Signs Vital Signs Date Time Temp Pulse Resp B/P (MAP) Pulse Ox O2 Delivery O2 Flow Rate FiO2 08/31/18 23:00 92 20 99/45 (63) 98 Room Air 08/31/18 21:45 99.8 99.8 Lab Values Laboratory Tests Test 08/31/18 22:40 08/31/18 22:50 Urine Collection Type U cath Urine Color Yellow Urine Clarity Clear Urine pH 5.5 Urine Specific [place] 1.010 Urine Protein 30 mg/dL (NEG-TRACE) Urine Glucose (UA) Negative mg/dL (NEG) Urine Ketones (Stick) Negative mg/dL (NEG) Urine Blood Negative (NEG) Urine Nitrite Negative (NEG) Urine Bilirubin Negative (NEG) Urine Urobilinogen Dipstick 0.2 mg/dL (0.2 mg/dL) Urine Leukocyte Esterase Large (NEG) Urine RBC Occ /HPF (0-2) Urine WBC >40 /HPF (0-4) Urine Bacteria Many /HPF (0-FEW) White Blood Count 35.6 x10^3/uL (4.0-11.0) H Red Blood Count 3.24 x10^6/uL (3.50-5.40) L Hemoglobin 9.0 g/dL (12.0-15.5) L Hematocrit 28.1 % (36.0-47.0) L Mean Corpuscular Volume 87 fL (79-100) Mean Corpuscular Hemoglobin 28 pg (25-35) Mean Corpuscular Hemoglobin Concent 32 g/dL (31-37) Red Cell Distribution Width 13.5 % (11.5-14.5) Platelet Count 364 x10^3/uL (140-400) Neutrophils (%) (Auto) 90 % (31-73) H Lymphocytes (%) (Auto) 1 % (24-48) L Monocytes (%) (Auto) 9 % (0-9) Eosinophils (%) (Auto) 0 % (0-3) Basophils (%) (Auto) 1 % (0-3) Neutrophils # (Auto) 32.0 x10^3uL (1.8-7.7) H Lymphocytes # (Auto) 0.2 x10^3/uL (1.0-4.8) L Monocytes # (Auto) 3.1 x10^3/uL (0.0-1.1) H Eosinophils # (Auto) 0.0 x10^3/uL (0.0-0.7) Basophils # (Auto) 0.2 x10^3/uL (0.0-0.2) Segmented Neutrophils % 76 % (35-66) H Band Neutrophils % 14 % (0-9) H Monocytes % 10 % (0-10) Toxic Vacuolation Slight Platelet Estimate Adequate (ADEQUATE) Poikilocytosis Mod Ovalocytes Few Acanthocytes (Spur Cells) Occ Schistocytes Few RBC Morphology Bizarre Forms Few Prothrombin Time 27.9 SEC (11.7-14.0) H Prothrombin Time INR 2.6 (0.8-1.1) H PTT 54 SEC (24-38) H Sodium Level 125 mmol/L (136-145) L Potassium Level 5.5 mmol/L (3.5-5.1) H Chloride Level 87 mmol/L (98-107) L Carbon Dioxide Level 28 mmol/L (21-32) Anion Gap 10 (6-14) Blood Urea Nitrogen 24 mg/dL (7-20) H Creatinine 2.0 mg/dL (0.6-1.0) H Estimated GFR (Cockcroft-Gault) 29.9 BUN/Creatinine Ratio 12 (6-20) Glucose Level 122 mg/dL (70-99) H Lactic Acid Level 1.7 mmol/L (0.4-2.0) Calcium Level 10.1 mg/dL (8.5-10.1) Magnesium Level 1.7 mg/dL (1.8-2.4) L Total Bilirubin 0.7 mg/dL (0.2-1.0) Aspartate Amino Transferase (AST) 23 U/L (15-37) Alanine Aminotransferase (ALT) 11 U/L (14-59) L Alkaline Phosphatase 134 U/L (46-116) H Creatine Kinase 68 U/L (26-192) Creatine Kinase MB (Mass) < 0.5 ng/mL (0.0-3.6) Creatine Kinase MB Relative Index % (0-4) Troponin I Quantitative 0.029 ng/mL (0.000-0.055) Total Protein 8.1 g/dL (6.4-8.2) Albumin 2.9 g/dL (3.4-5.0) L Albumin/Globulin Ratio 0.6 (1.0-1.7) L Laboratory Tests 08/31/18 22:50 Laboratory Tests 08/31/18 22:50 Microbiology 08/31/18 Urine Culture - Final, Complete 08/31/18 Urine Culture Result 1 (ARLETTE) - Final, Complete 08/31/18 Antimicrobic Susceptibility - Final, Complete EKG EKG @22:49 sinus rhythm, prolonged GA interval, HR of 92 bpm GA: 206 ms QRS: 78 ms QT/QTc: 394/[address] elevation Radiology/Procedures Radiology/Procedures PROCEDURE: CT HEAD WO CONTRAST PQRS Compliance Statement: One or more of the following individualized dose reduction techniques were utilized for this examination: 1. Automated exposure control 2. Adjustment of the mA and/or kV according to patient size 3. Use of iterative reconstruction technique CT head without contrast 08/31/2018 10:23 PM INDICATION: Weakness, altered mental status COMPARISON: CT head February 15, 2016 TECHNIQUE: Multiple axial CT images of the head were obtained from skull base through the vertex without intravenous contrast. FINDINGS: Head: Ventricles, sulci and basal cisterns are within normal limits. There is no hydrocephalus. Haney-white matter differentiation is normal. There is no acute intracranial hemorrhage. There is no mass, mass effect or midline shift. Posterior fossa is normal in appearance. Visualized portions of the orbits are normal with exception of bilateral lens replacement. Paranasal sinuses are well aerated. Mastoid air cells are well aerated. Scalp and calvaria are normal. IMPRESSION: No acute intracranial hemorrhage. Electronically signed by: Anabel Lynch MD (08/31/2018 11:20 PM) [facility] PROCEDURE: PORTABLE CHEST 1V Chest radiograph 08/31/2018 10:23 PM INDICATION: Cough, weakness COMPARISON: August 13, 2017 TECHNIQUE: Portable upright frontal view of the chest is provided. FINDINGS: The cardiomediastinal silhouette is within normal limits. Right chest wall cardiac device is in similar position. There are no pleural effusions. There is no pulmonary vascular congestion. There is no pneumothorax. Chronic interstitial changes are noted. There may be more confluent interstitial opacity in the right upper lobe. No significant osseous abnormality is identified. IMPRESSION: Chronic interstitial changes with suggestion of confluent interstitial opacity in the right upper lobe. Consideration may be given for fibrotic changes versus interstitial pneumonitis. Electronically signed by: Anabel Lynch MD (08/31/2018 11:06 PM) [facility] Course & Med Decision Making Course & Med Decision Making Pertinent Labs and Imaging studies reviewed. (See chart for details) Patient presents with generalized weakness with associated cough. Labs obtained and posted to chart. WBC and renal function elevated. Bandemia also noted. Lactic acid WNL. Hyponatremia noted. CXR with concern for pneumonia. UA also noted with signs of infection. CT head without acute process. Patient mets criteria for sepsis. Empiric antibiotics given. IVF hydration given. Patient requiring admission for further evaluation and treatment. Discussed with Dr. Vasquez (PCP) who is in agreement with admit. Discussed findings and plan with patient, who acknowledges understanding and agreement. Dragon Disclaimer Dragon Disclaimer This electronic medical record was generated, in whole or in part, using a voice recognition dictation system. Departure Departure Impression: Primary Impression: Sepsis Additional Impressions: Renal insufficiency Hyponatremia Hypomagnesemia UTI (urinary tract infection) Disposition: 09 ADMITTED INPATIENT Admitting Physician: Jaron Vasquez Condition: GUARDED Referrals: JARON VASQUEZ MD (PCP) Critical Care Time Critical care time was 30 minutes which includes time at bedside, spent in discussion of patient's care with specialists and/or family members, with interpretation of laboratory and/or radiological studies and is exclusive of procedures. Problem Qualifiers Primary Impression: Sepsis Sepsis type: sepsis due to unspecified organism Qualified Codes: A41.9 - Sepsis, unspecified organism Additional Impressions: UTI (urinary tract infection) Urinary tract infection type: acute cystitis Hematuria presence: with hematuria Qualified Codes: N30.01 - Acute cystitis with hematuria REDDY EMMANUEL DO Aug 31, 2018 23:37
[2018-08-31] MEDS ORDERED: ACETAMINOPHEN 325 MG TABLET. PO PRN (23:45)
[2018-08-31] MEDS ORDERED: DEXTROSE 50% 25 GM / 50ML DISP.SYRIN. IV PRN (23:45)
[2018-08-31] MEDS ORDERED: MAGNESIUM SULFATE 2GM 50 ML IV ONE (23:45)
[2018-09-01] VITALS (27 sets, daily range): BP systolic 70–195; BP diastolic 36–85
[2018-09-01] MEDS ORDERED: AZTREONAM IV Push 2 GM VIAL. IVP ONE
[2018-09-01] MEDS: IV NORMAL SALINE 500ML BAG 500 ML IV ONE ×2 (00:11→03:51)
[2018-09-01] MEDS ORDERED: VANCOMYCIN 1.5 GM in IV NORMAL SALINE 500ML BAG 500 ML IV ONE (00:15)
[2018-09-01] MEDS ORDERED: IV NORMAL SALINE 500ML BAG 500 ML IV ONE ×2 (00:45→10:30)
[2018-09-01] MEDS ORDERED: IV NORMAL SALINE 1000ML BAG 1,000 ML IV ONE (01:30)
--- NOTE | 2018-09-01 02:55 | NUR ---
Patient admitted to ICU room 109 at 0215 via cart from ED accompanied by RN and patient's son. ED RN states she just started 2nd liter of NS bolus and patient will still need 500CC NS to complete ordered 2500CC. Patient alert/oriented x4, complaining of back pain which she states is chronic and sharp/aching rating 10/10 on Numeric pain scale. Patient is shivering with temp 99.5 oral. Son states patient has not felt well since the weekend and has been complaining of weakness. Patient and son oriented to ICU routine, room, nursing call light, TV/bed controls, diet (cardiac), activity (BR), Side rail policy and POC--both verbalize understanding. Patient has right upper chest permanent pacemaker that she states she checks at home per phone but is unable to recall type and when it was placed. Patient also states she is on Coumadin for multiple PE in the past and checks her INR at home. Patient is unable at this time to remember all home meds and dosages, son states he will bring her list from home later today. When reviewing home meds from previous admission (08/2017), she is able to remember Toprol XL dose of 50MG daily, Hydralazine 10MG BID, Percocet 5/325MG PO [id number] and states she had not taken any of her medications yesterday. At 0245 BP 195/85--Dr Chase called at 0255, notified of admit, patient's pain, shivering, BP and above medications. Orders received to start Toprol XL 50MG PO daily and give one dose now, Hydralazine 10MG PO BID, give one dose now, Percocet 5/325MG PO PRN Q4HRS, and Tylenol 650MG PO PRN Q4HRS. Patient notified of meds restarting and verbalizes understanding. See admission information and assessment to follow.
[2018-09-01] MEDS ORDERED: METOPROLOL SUCC 24HR ER 50 MG TAB.ER.24H. PO ONE (03:00)
[2018-09-01] MEDS ORDERED: hydrALAZINE 10 MG TABLET PO ONE (03:00)
[2018-09-01] MEDS: oxyCODONE/APAP 5/325 1 TAB TABLET PO PRN ×3 (03:14→19:47)
[2018-09-01] MEDS: ACETAMINOPHEN 325 MG TABLET. PO PRN ×3 (04:01→21:27)
--- NOTE | 2018-09-01 07:28 | NUR ---
Paged DR Kennedy, returned page, notified of consult and elevated troponins (0.029 admit, repeat this am 0.259). No new orders at this time, will see today.
[2018-09-01] MEDS ORDERED: INSULIN LISPRO 300 UNITS/3 ML INSULN.PEN. SQ SCH (08:00)
[2018-09-01 08:25] LABS: HDLC 32 mg/dL (40-60); TRIGLYCERIDES 46 mg/dL (0-150); VLDLC 9 mg/dL (0-40)
--- NOTE | 2018-09-01 08:34 | PDOC2 ---
CARDIAC CONSULT DATE OF CONSULT Date of Consult DATE: 09/01/18 TIME: 08:07 REASON FOR CONSULT Reason for Consult: Elevated troponin REFERRING PHYSICIAN Referring Physician: Salvatore SOURCE Source: Chart review, Patient HISTORY OF PRESENT ILLNESS HISTORY OF PRESENT ILLNESS This is a pleasant 68 yo female admitted for complains of having BP problem. She lives with her son and is a poor historian. Currently she denies any discomfort nor symptoms despite her SBP in the 70s. Reports no CP nor SOA but has been having some runny nose and also some coughing. She has hx of SSS hence PPM. She sees Dr. Oconnor from as her hammer operator. She has been noted with weakness and it is unclear the details of what led to her weakness and what symptoms she has been having lately as family member is not present currently. Her troponin is elevated prompting further cardiology evaluation. Again currently she denies any CP, SOA and no arrhythmia so far. PAST MEDICAL HISTORY Cardiovascular: AFIB, HTN, Other (SSS) Pulmonary: Asthma (O2 dependent), Pulmonary embolus, Other (Chronic Pulmonary fibrosis treated with cellcept in ) CENTRAL NERVOUS SYSTEM: Other (tremors?parkinsons) GI: GERD, Irritable bowel disease Heme/Onc: Other (Monoclonal gammopathy) Musculoskeletal: Osteoarthritis Rheumatologic: Fibromyalgia, Other (sjogren) Infectious disease: Herpes zoster (shingles) ENT: Other ([facility]) Endocrine: Diabetes (2), Hypothyroidism, Osteoporosis Dermatology: Other (pruritus, multiple healed small scabd to bilateral UE) PAST SURGICAL HISTORY Past Surgical History: Pacemaker, Cholecystectomy, Hysterectomy FAMILY HISTORY Family History: Diabetes, Heart Disease SOCIAL HISTORY Smoke: No ALCOHOL: none Drugs: None Lives: Alone (sone) CURRENT MEDICATIONS CURRENT MEDICATIONS Current Medications Medications (Trade) Dose Ordered Sig/Ammon Route PRN Reason Start Time Stop Time Status Last Admin Dose Admin Sodium Chloride 1,000 ml @ 1,000 mls/hr 1X ONCE IV 08/31/18 22:30 08/31/18 23:29 DC 09/01/18 00:11 Sodium Chloride 1,000 ml @ 1,000 mls/hr 1X ONCE IV 08/31/18 23:45 09/01/18 00:44 DC 09/01/18 01:48 Aztreonam (Azactam) 2 gm 1X ONCE IVP 09/01/18 00:00 09/01/18 00:01 DC 09/01/18 00:10 Vancomycin HCl 1.5 gm/Sodium Chloride 500 ml @ 250 mls/hr 1X ONCE IV 09/01/18 00:15 09/01/18 02:14 DC 09/01/18 02:29 Levofloxacin/ Dextrose 100 ml @ 100 mls/hr 1X ONCE IV 08/31/18 23:45 09/01/18 00:44 DC 09/01/18 00:11 Magnesium Sulfate 50 ml @ 25 mls/hr 1X ONCE IV 08/31/18 23:45 09/01/18 01:44 DC 09/01/18 01:49 Sodium Chloride 500 ml @ 500 mls/hr 1X ONCE IV 09/01/18 00:15 09/01/18 01:14 DC 09/01/18 03:51 Sodium Chloride 1,000 ml @ 100 mls/hr 1X ONCE IV 09/01/18 01:30 09/01/18 11:29 09/01/18 04:58 Oxycodone/ Acetaminophen (Percocet 5/325) 1 tab PRN Q4HRS PRN PO PAIN 09/01/18 03:00 09/01/18 07:52 Acetaminophen (Tylenol) 650 mg PRN Q6HRS PRN PO MILD PAIN / TEMP 09/01/18 03:00 09/01/18 04:01 Metoprolol Succinate (Toprol Xl) 50 mg 1X ONCE PO 09/01/18 03:00 09/01/18 03:06 DC 09/01/18 03:13 Hydralazine HCl (Apresoline) 10 mg 1X ONCE PO 09/01/18 03:00 09/01/18 03:06 DC 09/01/18 03:13 ALLERGIES ALLERGIES: Coded Allergies: Cephalexin Monohydrate (Verified Allergy, Intermediate, 05/03/16) Penicillins (Verified Allergy, Intermediate, 05/03/16) aspirin (Verified Allergy, Intermediate, 05/03/16) celecoxib (Verified Allergy, Intermediate, 05/03/16) cephalexin (Verified Allergy, Intermediate, 05/03/16) clindamycin (Verified Allergy, Intermediate, 05/03/16) codeine (Verified Allergy, Intermediate, 05/03/16) cyclobenzaprine (Verified Allergy, Intermediate, 05/03/16) cyclobenzaprine HCl (Verified Allergy, Intermediate, 05/03/16) doxycycline (Verified Allergy, Intermediate, has tolerated Doxycycline prev.admissions, 05/03/16) erythromycin base (Verified Allergy, Intermediate, 05/03/16) rofecoxib (Verified Allergy, Intermediate, 05/03/16) sulfamethoxazole (Verified Allergy, Intermediate, 05/03/16) sulfanilamide (Verified Allergy, Intermediate, 05/03/16) trimethoprim (Verified Allergy, Intermediate, 05/03/16) valdecoxib (Verified Allergy, Intermediate, 05/03/16) ROS Review of System limited, poor historian PHYSICAL EXAM General: Alert, Oriented X3, Cooperative, No acute distress HEENT: Mucous membr. moist/pink Lungs: Other (basilar crackles with O2 at 2LPM) Heart: Regular rate (SR), Normal S1, Normal S2, Other (distant heart sounds) Abdomen: Soft, No tenderness Extremities: No cyanosis, Other (trace LE edema) Skin: Other (multiple m,inuste healed scabs to UE) Neuro: Normal speech, Sensation intact Psych/Mental Status: Other (flat affect) MUSCULOSKELETAL: Osteoarthritic changes both hands VITALS VITALS Vital Signs Date Time Temp Pulse Resp B/P (MAP) Pulse Ox O2 Delivery O2 Flow Rate FiO2 09/01/18 07:52 18 98 Nasal Cannula 2.0 09/01/18 07:00 103 90/47 (61) 09/01/18 06:00 101.2 101.2 LABS Lab: Laboratory Tests Test 08/31/18 22:40 08/31/18 22:50 09/01/18 04:00 09/01/18 06:25 Urine Collection Type U cath Urine Color Yellow Urine Clarity Clear Urine pH 5.5 Urine Specific [place] 1.010 Urine Protein 30 mg/dL (NEG-TRACE) Urine Glucose (UA) Negative mg/dL (NEG) Urine Ketones (Stick) Negative mg/dL (NEG) Urine Blood Negative (NEG) Urine Nitrite Negative (NEG) Urine Bilirubin Negative (NEG) Urine Urobilinogen Dipstick 0.2 mg/dL (0.2 mg/dL) Urine Leukocyte Esterase Large (NEG) Urine RBC Occ /HPF (0-2) Urine WBC >40 /HPF (0-4) Urine Bacteria Many /HPF (0-FEW) White Blood Count 35.6 x10^3/uL (4.0-11.0) Red Blood Count 3.24 x10^6/uL (3.50-5.40) Hemoglobin 9.0 g/dL (12.0-15.5) Hematocrit 28.1 % (36.0-47.0) Mean Corpuscular Volume 87 fL (79-100) Mean Corpuscular Hemoglobin 28 pg (25-35) Mean Corpuscular Hemoglobin Concent 32 g/dL (31-37) Red Cell Distribution Width 13.5 % (11.5-14.5) Platelet Count 364 x10^3/uL (140-400) Neutrophils (%) (Auto) 90 % (31-73) Lymphocytes (%) (Auto) 1 % (24-48) Monocytes (%) (Auto) 9 % (0-9) Eosinophils (%) (Auto) 0 % (0-3) Basophils (%) (Auto) 1 % (0-3) Neutrophils # (Auto) 32.0 x10^3uL (1.8-7.7) Lymphocytes # (Auto) 0.2 x10^3/uL (1.0-4.8) Monocytes # (Auto) 3.1 x10^3/uL (0.0-1.1) Eosinophils # (Auto) 0.0 x10^3/uL (0.0-0.7) Basophils # (Auto) 0.2 x10^3/uL (0.0-0.2) Segmented Neutrophils % 76 % (35-66) Band Neutrophils % 14 % (0-9) Monocytes % 10 % (0-10) Toxic Vacuolation Slight Platelet Estimate Adequate (ADEQUATE) Poikilocytosis Mod Ovalocytes Few Acanthocytes Occ Schistocytes Few RBC Morphology Bizarre Forms Few Prothrombin Time 27.9 SEC (11.7-14.0) Prothromb Time International Ratio 2.6 (0.8-1.1) Activated Partial Thromboplast Time 54 SEC (24-38) Sodium Level 125 mmol/L (136-145) Potassium Level 5.5 mmol/L (3.5-5.1) Chloride Level 87 mmol/L (98-107) Carbon Dioxide Level 28 mmol/L (21-32) Anion Gap 10 (6-14) Blood Urea Nitrogen 24 mg/dL (7-20) Creatinine 2.0 mg/dL (0.6-1.0) Estimated GFR (Cockcroft-Gault) 29.9 BUN/Creatinine Ratio 12 (6-20) Glucose Level 122 mg/dL (70-99) Lactic Acid Level 1.7 mmol/L (0.4-2.0) Calcium Level 10.1 mg/dL (8.5-10.1) Magnesium Level 1.7 mg/dL (1.8-2.4) Total Bilirubin 0.7 mg/dL (0.2-1.0) Aspartate Amino Transf (AST/SGOT) 23 U/L (15-37) Alanine Aminotransferase (ALT/SGPT) 11 U/L (14-59) Alkaline Phosphatase 134 U/L (46-116) Creatine Kinase 68 U/L (26-192) Creatine Kinase MB (Mass) < 0.5 ng/mL (0.0-3.6) Creatine Kinase MB Relative Index % (0-4) Troponin I Quantitative 0.029 ng/mL (0.000-0.055) 0.259 ng/mL (0.000-0.055) 1.049 ng/mL (0.000-0.055) Total Protein 8.1 g/dL (6.4-8.2) Albumin 2.9 g/dL (3.4-5.0) Albumin/Globulin Ratio 0.6 (1.0-1.7) ASSESSMENT/PLAN ASSESSMENT/PLAN 1. Sepsis with UTI: Tmax 103.5 per PCP 2. HTN: hypotensive currently was also given 3. AVA: Cr at 2 4. Elevated troponin: Trop at 1.04 no cardiac symptoms. Suspect type 2 demand mediated with multiple culprits above. Awaiting EKG 5. PPM insitu: due to SSS. follow with [facility]. No arrhythmia so far per tele 6. Chronic anticoagulation: INR at 2.6 7. Chronic pulmonary fibrosis with hx of PE/MGUS/sjogren and noted current use of cellcept per [facility] 8. DM2 9. Allergy to ASA. 10. Possible hx of parkinsons Recommendations 1. Obtain EKG, trend troponin, sepsis protocol. Obtain Flu test, consult ID. Possible diarrhea will obtain C-diff 2. TTE today and obtain lipides. Obtain [facility] cardiology records. 3. Plavix x1. Check INR, CMP, Mg, CBC, hold coumadin for now for possibility of potential heparin infusion. 4. Will interrogate device. SHELDON SANCHEZ APRN Sep 01, 2018 08:34
[2018-09-01] MEDS: ONDANSETRON PF 4 MG/2 ML VIAL. IV PRN ×2 (08:37→22:34)
[2018-09-01 08:43] LABS: CHOLESTEROL < 50 mg/dL (0-200); HEMATOCRIT 24.5 % (36.0-47.0); HEMOGLOBIN 7.7 g/dL (12.0-15.5); RED BLOOD COUNT 2.77 x10^6/uL (3.50-5.40); RED CELL DISTRIBUTION WIDTH 13.6 % (11.5-14.5); WHITE BLOOD COUNT 27.5 x10^3/uL (4.0-11.0)
[2018-09-01 08:48] LABS: ALBUMIN 2.5 g/dL (3.4-5.0); ALBUMIN/GLOBULIN RATIO 0.7 (1.0-1.7); CALCIUM 8.4 mg/dL (8.5-10.1); CREATININE 1.5 mg/dL (0.6-1.0); GFR 41.7; MAGNESIUM 1.7 mg/dL (1.8-2.4); POTASSIUM 4.1 mmol/L (3.5-5.1); TOTAL BILIRUBIN 0.7 mg/dL (0.2-1.0)
[2018-09-01] MEDS ORDERED: hydrALAZINE 10 MG TABLET PO SCH (09:00)
[2018-09-01] MEDS ORDERED: CLOPIDOGREL BISULFATE 75 MG TABLET PO ONE (09:00)
[2018-09-01] MEDS ORDERED: METOPROLOL SUCC 24HR ER 50 MG TAB.ER.24H. PO SCH (09:00)
[2018-09-01 09:55] LABS: PROTHROMBIN TIME PATIENT 32.9 SEC (11.7-14.0)
--- NOTE | 2018-09-01 10:24 | EKG ---
[facility] [address] [place] [address] Test Date: 2018-08-31 Test Time: 22:49:47 Pat Name: SURY BRAVO Department: Room: 109 1 Gender: F Cane Flume Watchman: : 1950 Requested By: REDDY EMMANUEL Order Number: [id number] Reading MD: Ricardo Juarez Measurements Intervals [place] Rate: 92 P: 50 ND: 206 QRS: 12 QRSD: 78 T: 25 QT: 394 QTc: 493 Interpretive Statements SINUS RHYTHM PROLONGED ND INTERVAL T ABNORMALITY IN ANTEROSEPTAL LEADS PROLONGED QT ABNORMAL ECG Electronically Signed On 09-12-2018 10:14:32 DIAL SCREW ASSEMBLER by Ricardo Juarez
[2018-09-01] MEDS ORDERED: methylPREDNISolone SOD SUCC PF 125 MG/2 ML VIAL. IV ONE (10:30)
[2018-09-01] MEDS ORDERED: DEXTROSE 50% 25 GM / 50ML DISP.SYRIN. IV PRN (10:30)
[2018-09-01] MEDS: IV NORMAL SALINE 1000ML BAG 1,000 ML IV SCH ×2 (10:30→15:15)
--- NOTE | 2018-09-01 10:38 | PDOC ---
Provider Note Provider Note Pt seen in ICU.H&P dictated.#[id number]. CHARLES VASQUEZ MD Sep 01, 2018 10:38
[2018-09-01] MEDS ORDERED: VANCOMYCIN PER PHARMACY MC PRN (10:45)
[2018-09-01] MEDS ORDERED: AZTREONAM IV Push 1 GM VIAL. IVP SCH (11:01)
--- NOTE | 2018-09-01 11:28 | EKG ---
[facility] [address] [place] [address] Test Date: 2018-09-01 Test Time: 10:42:47 Pat Name: SURY BRAVO Department: Room: 109 1 Gender: F Parks And Recreation Manager: AT : 1950 Requested By: SHELDON SANCHEZ Order Number: [id number] Reading MD: Ricardo Juarez Measurements Intervals [place] Rate: 92 P: 0 DC: 236 QRS: 28 QRSD: 86 T: 33 QT: 362 QTc: 453 Interpretive Statements SINUS RHYTHM PROLONGED DC INTERVAL Electronically Signed On 09-12-2018 10:23:10 VOICE ENGINEER by Ricardo Juarez
[2018-09-01] MEDS: METOCLOPRAMIDE 10 MG TABLET. PO SCH ×3 (11:30→19:53)
--- NOTE | 2018-09-01 11:39 | HP ---
ADMIT DATE: 08/31/2018 REASON FOR ADMISSION TO THE HOSPITAL: Sepsis, pneumonia, urinary tract infection, hypertension, leukocytosis. HISTORY OF PRESENT ILLNESS: The patient is a 68-year-old female. The patient has been not feeling well for the last couple of days, and she has a history of scleroderma, interstitial lung disease, pulmonary fibrosis. She has been seeing a specialist at . She is immunosuppressed, on medications. She also has a history of diabetes, hypertension, pacemaker, anxiety, depression. She is on Coumadin for history of DVT, pulmonary embolism in the past. She was not doing well for last 3 days in the week. Yesterday, her son came to visit, was hardly able to get off the bed, called ambulance and was brought to the hospital. PAST MEDICAL HISTORY: Has atrial fibrillation, hypertension, sick sinus syndrome, pacemaker. The patient has a history of DVT, pulmonary embolism, oxygen, pulmonary fibrosis, interstitial lung disease, scleroderma, treated with immunosuppressant, CellCept at . Has history of Parkinson's, tremors, GERD, IBS, arthritis, fibromyalgia, monoclonal gammopathy, hypothyroidism. PAST SURGICAL HISTORY: Had a pacemaker, gallbladder surgery, hysterectomy. FAMILY HISTORY: Positive for diabetes, heart disease. SOCIAL HISTORY: No history of smoking, alcohol, drug abuse. The patient lives at home. She is on home oxygen. ALLERGIES: KEFLEX, PENICILLIN, ASPIRIN, CELEBREX, CLINDAMYCIN, CODEINE, CYCLOBENZAPRINE, DOXYCYCLINE, ERYTHROMYCIN, SULFAMETHOXAZOLE, TRIMETHOPRIM REVIEW OF SYSTEMS: CARDIAC: No chest pain. GASTROINTESTINAL: No nausea, complains of cough, feeling weak, short of breath as well as a burning sensation in the urine. Rest of the 14-system was reviewed and negative. PHYSICAL EXAMINATION: GENERAL: The patient looks older than her age, looks chronically sick. VITAL SIGNS: She is in the ICU with hypotension 80/60. Temperature, T-max was 103.5. Pulse 130, respirations 20. Blood pressure 178/80, now 80/60. 96 on 2 liters. HEENT: Head is atraumatic. The patient has alopecia from scleroderma. Pupils equal. Oral cavity, no teeth. NECK: Supple. Thyroid not enlarged. JVD not elevated. CHEST: Symmetrical. CARDIOVASCULAR: S1, S2. No murmurs. LUNGS: Coarse crackles from interstitial lung disease from scleroderma. ABDOMEN: Soft, bowel sounds present, no mass palpable. EXTERNAL GENITALIA: No Prasad. RECTAL: Deferred. EXTREMITIES: No calf tenderness, no edema. Pulses 1+. NEUROLOGIC: Moving extremities. very weak. No focal deficits noted. LABORATORY DATA: Shows a white count of 35,000, hemoglobin 9, platelets 364. INR is 2.6. Electrolytes show sodium 125, potassium 5.5, chloride 87, bicarb 28, anion gap 10, BUN 24, creatinine 2.0, glucose 123. Lactic acid 1.7, magnesium 1.7. LFTs were normal. Albumin 2.9. Troponin peaked up to 1.76. Cholesterol 50, HDL 32. CT head was negative. Chest x-ray shows interstitial changes, possible pneumonitis. FINAL IMPRESSION: 1. Acute sepsis with Hypotension. 2. Leukocytosis wbc 35 elevated. 3. Urinary tract infection. 4. Pneumonitis. 5. Interstitial lung disease. 6. Hyponatremia. 7. Acute kidney failure. 8. Diabetes. 9. Chronic immune suppression. 10. Scleroderma. 11. History of deep venous thrombosis, pulmonary embolism, on Coumadin. 12. Anxiety. 13. Depression. 14. Gastroesophageal reflux disease. 15. Multiple allergies. 16. Non-ST elevation myocardial infarction with elevated troponin.Troponin peaked to 1.7 PLAN: At this time, was admit to hospital. Urine cultures, blood cultures given, fluid bolus 3 liters, started on broad-spectrum antibiotics, vancomycin and Levaquin Azactam. ID is consulted. The patient was also seen by Cardiology secondary to elevated troponin. The patient is already on Coumadin and started on Plavix. Echocardiogram and see how the patient's condition improves. The patient's long-term prognosis is guarded. CHARLES VASQUEZ MD DR: GERADLO/lakhwinder JOB#: [id number] / [id number]
--- NOTE | 2018-09-01 11:39 | PDOC ---
Infectious Disease Note Vital Sign Vital Signs Vital Signs Date Time Temp Pulse Resp B/P (MAP) Pulse Ox O2 Delivery O2 Flow Rate FiO2 09/01/18 10:00 91 12 91/44 (60) 100 Nasal Cannula 2.0 09/01/18 08:00 98.7 98.7 Labs Lab Laboratory Tests Test 08/31/18 22:40 08/31/18 22:50 09/01/18 04:00 09/01/18 06:25 Urine Collection Type U cath Urine Color Yellow Urine Clarity Clear Urine pH 5.5 Urine Specific [place] 1.010 Urine Protein 30 mg/dL (NEG-TRACE) Urine Glucose (UA) Negative mg/dL (NEG) Urine Ketones (Stick) Negative mg/dL (NEG) Urine Blood Negative (NEG) Urine Nitrite Negative (NEG) Urine Bilirubin Negative (NEG) Urine Urobilinogen Dipstick 0.2 mg/dL (0.2 mg/dL) Urine Leukocyte Esterase Large (NEG) Urine RBC Occ /HPF (0-2) Urine WBC >40 /HPF (0-4) Urine Bacteria Many /HPF (0-FEW) White Blood Count 35.6 x10^3/uL (4.0-11.0) 27.5 x10^3/uL (4.0-11.0) Red Blood Count 3.24 x10^6/uL (3.50-5.40) 2.77 x10^6/uL (3.50-5.40) Hemoglobin 9.0 g/dL (12.0-15.5) 7.7 g/dL (12.0-15.5) Hematocrit 28.1 % (36.0-47.0) 24.5 % (36.0-47.0) Mean Corpuscular Volume 87 fL (79-100) 88 fL (79-100) Mean Corpuscular Hemoglobin 28 pg (25-35) 28 pg (25-35) Mean Corpuscular Hemoglobin Concent 32 g/dL (31-37) 31 g/dL (31-37) Red Cell Distribution Width 13.5 % (11.5-14.5) 13.6 % (11.5-14.5) Platelet Count 364 x10^3/uL (140-400) 251 x10^3/uL (140-400) Neutrophils (%) (Auto) 90 % (31-73) Lymphocytes (%) (Auto) 1 % (24-48) Monocytes (%) (Auto) 9 % (0-9) Eosinophils (%) (Auto) 0 % (0-3) Basophils (%) (Auto) 1 % (0-3) Neutrophils # (Auto) 32.0 x10^3uL (1.8-7.7) Lymphocytes # (Auto) 0.2 x10^3/uL (1.0-4.8) Monocytes # (Auto) 3.1 x10^3/uL (0.0-1.1) Eosinophils # (Auto) 0.0 x10^3/uL (0.0-0.7) Basophils # (Auto) 0.2 x10^3/uL (0.0-0.2) Segmented Neutrophils % 76 % (35-66) Band Neutrophils % 14 % (0-9) Monocytes % 10 % (0-10) Toxic Vacuolation Slight Platelet Estimate Adequate (ADEQUATE) Poikilocytosis Mod Ovalocytes Few Acanthocytes Occ Schistocytes Few RBC Morphology Bizarre Forms Few Prothrombin Time 27.9 SEC (11.7-14.0) Prothromb Time International Ratio 2.6 (0.8-1.1) Activated Partial Thromboplast Time 54 SEC (24-38) Sodium Level 125 mmol/L (136-145) 133 mmol/L (136-145) Potassium Level 5.5 mmol/L (3.5-5.1) 4.1 mmol/L (3.5-5.1) Chloride Level 87 mmol/L (98-107) 97 mmol/L (98-107) Carbon Dioxide Level 28 mmol/L (21-32) 20 mmol/L (21-32) Anion Gap 10 (6-14) 16 (6-14) Blood Urea Nitrogen 24 mg/dL (7-20) 21 mg/dL (7-20) Creatinine 2.0 mg/dL (0.6-1.0) 1.5 mg/dL (0.6-1.0) Estimated GFR (Cockcroft-Gault) 29.9 41.7 BUN/Creatinine Ratio 12 (6-20) 14 (6-20) Glucose Level 122 mg/dL (70-99) 79 mg/dL (70-99) Lactic Acid Level 1.7 mmol/L (0.4-2.0) Calcium Level 10.1 mg/dL (8.5-10.1) 8.4 mg/dL (8.5-10.1) Magnesium Level 1.7 mg/dL (1.8-2.4) 1.7 mg/dL (1.8-2.4) Total Bilirubin 0.7 mg/dL (0.2-1.0) 0.7 mg/dL (0.2-1.0) Aspartate Amino Transf (AST/SGOT) 23 U/L (15-37) 28 U/L (15-37) Alanine Aminotransferase (ALT/SGPT) 11 U/L (14-59) 12 U/L (14-59) Alkaline Phosphatase 134 U/L (46-116) 152 U/L (46-116) Creatine Kinase 68 U/L (26-192) Creatine Kinase MB (Mass) < 0.5 ng/mL (0.0-3.6) Creatine Kinase MB Relative Index % (0-4) Troponin I Quantitative 0.029 ng/mL (0.000-0.055) 0.259 ng/mL (0.000-0.055) 1.049 ng/mL (0.000-0.055) Total Protein 8.1 g/dL (6.4-8.2) 6.0 g/dL (6.4-8.2) Albumin 2.9 g/dL (3.4-5.0) 2.5 g/dL (3.4-5.0) Albumin/Globulin Ratio 0.6 (1.0-1.7) 0.7 (1.0-1.7) Triglycerides Level 46 mg/dL (0-150) Cholesterol Level < 50 mg/dL (0-200) LDL Cholesterol, Calculated mg/dL (0-100) VLDL Cholesterol, Calculated 9 mg/dL (0-40) Non-HDL Cholesterol Calculated mg/dL (0-129) HDL Cholesterol 32 mg/dL (40-60) Cholesterol/HDL Ratio Test 09/01/18 09:30 Prothrombin Time 32.9 SEC (11.7-14.0) Prothromb Time International Ratio 3.2 (0.8-1.1) Troponin I Quantitative 1.765 ng/mL (0.000-0.055) Objective Assessment Sepsis - POA Leukocytosis Immunosupression Abx allergies - has tolerated Vantin Elevated troponin AVA Plan Plan of Care D/c Aztreonam and begin Meropenem Cont Vanc Obtain Flu screen F/u labs and cults Critically ill 35 mins CC time D/w nursing Thank you # [id number] CAROLYN JOHNSON MD Sep 01, 2018 11:39
[2018-09-01] MEDS: IPRATRPIUM/ALBUTEROL 0.5/2.5MG 3 ML NEBU. IH SCH ×3 (11:45→19:50)
[2018-09-01] MEDS: LEVOTHYROXINE 25 MCG TABLET. PO SCH (11:56)
[2018-09-01] MEDS: MEROPENEM 500 MG in IV NORMAL SALINE 50ML 50 ML IV SCH ×3 (11:57→23:42)
[2018-09-01] MEDS: INSULIN LISPRO 300 UNITS/3 ML INSULN.PEN. SQ SCH ×2 (12:00→17:00)
--- NOTE | 2018-09-01 12:16 | NUR ---
Pharmacy Warfarin Dosing Note S:Pharmacy consulted to assist with anticoagulation therapy, with target INR: 2 - 3 O:SURY BRAVO is a 68 year old F with h/o DVT,PE LABS: Last INR: 3.2 Last HGB: 7.7 Last HCT: 24.5 Last PLT: 251 Previous Regimen: 4 mg/day Ongoing Drug Interactions: Synthroid A:INR of 3.2 is above desired range. Target range for this patient is: 2 - 3 P: Hold warfarin dose today Bridge Therapy: None Next INR due 09/02/18 Pharmacy anticoagulation service will continue to follow. WILBERTO ALLEN [facility], 09/01/18 1383
--- NOTE | 2018-09-01 12:27 | NUR ---
Pharmacy Vancomycin Dosing Note S:Consulted to monitor and dose vancomycin started 09/01/18. O:SURY BRAVO is a 68 year old F with sepsis in an immunocompromised patient. Height: 5 feet, 3 inches Weight: 64.1 kg Dosing Weight: Actual Other Antibiotics: MERREM 500MG IV Q6HRS LABS: Last BUN: 21 Last Creatinine: 1.5 Creatinine Clearance: 31 mL/min Last WBC: 27.5 Last Procalcitonin: - Tmax (past 24 hours): 103.5 Microbiology: BLOOD, URINE, SPUTUM CX PENDING I/O: 3200/output not documented; 1 void A: Patient requires vancomycin for sepsis, goal trough 15-20 mcg/ml. Cultures still pending. Patient's SCr is elevated on admission at 1.5 with an eCrCl of 31 ml/min. She received a one time dose of vancomycin 1500 mg today in ER. Initiate the following: P: 1. Initiate Vancomycin 1000 mg IV q24h 2. Follow up Trough level on 09/03/18 at 0230 3. Pharmacy will continue to monitor, follow and adjust therapy as needed. WILBERTO ALLEN [facility], 09/01/18 1238
[2018-09-01] MEDS: ASCORBIC ACID 500 MG TABLET PO SCH (12:48)
[2018-09-01] MEDS: MYCOPHENOLATE MOFETIL 250 MG CAPSULE. PO SCH ×2 (12:48→19:53)
[2018-09-01] MEDS: ASPIRIN ENTERIC COATED 81 MG TABLET.DR. PO SCH ×2 (12:48→19:53)
[2018-09-01] MEDS: MAGNESIUM OXIDE 400 MG TABLET PO SCH (12:48)
[2018-09-01] MEDS: PANTOPRAZOLE 40 MG TABLET.DR. PO SCH (12:48)
[2018-09-01] MEDS: CETIRIZINE HCL 10 MG TABLET. PO SCH (12:49)
[2018-09-01] MEDS: HYDROXYCHLOROQUINE 200 MG TABLET PO SCH ×2 (12:49→19:53)
[2018-09-01] MEDS: CYANOCOBALAMIN (VITAMIN B-12) 1,000 MCG TABLET. PO SCH (12:49)
[2018-09-01] MEDS: cycloSPORINE 0.05% OPHTH DROPERETTE. OU SCH ×2 (12:49→19:57)
[2018-09-01] MEDS: FERROUS SULFATE 325 MG TABLET. PO SCH ×2 (14:25→19:53)
[2018-09-01] MEDS: methylPREDNISolone SOD SUCC PF 125 MG/2 ML VIAL. IV SCH ×2 (14:25→21:26)
[2018-09-01] MEDS: POLYVINYL ALCOHOL 1.4% OPHTH SOLUTION 15ML BOTTLE. OU SCH ×3 (14:26→19:53)
--- NOTE | 2018-09-01 15:45 | CARD ---
MR#: [id number] Date of Study: 09/01/2018 Ordering Physician: SHELDON SANCHEZ, Referring Physician: CHARLES VASQUEZ, Tech: Angelia Cummins APPROVED REPORT EXAM: Two-dimensional and M-mode echocardiogram with Doppler and color Doppler. Other Information Quality : AverageHR: 93bpm Rhythm : Pacemaker INDICATION Elevated Troponin Surgery/Intervention Pacemaker: 2D DIMENSIONS Left Atrium(2D)3.1 (1.6-4.0cm)IVSd1.0 (0.7-1.1cm) Aortic Root(2D)2.8 (2.0-3.7cm)LVDd4.5 (3.9-5.9cm) LVOT Diameter2.1 (1.8-2.4cm)PWd0.9 (0.7-1.1cm) LVDs2.4 (2.5-4.0cm)FS (%) 46.2 % SV73.1 mlLVEF(%)77.7 (>50%) Aortic Valve AoV Peak Talib.157.7cm/sAoV VTI30.2cm AO Peak GR.9.9mmHgLVOT VTI 14.67cm AO Mean GR.6mmHg TDI Lateral E' P. V13.39cm/sMedial E' P. V11.01cm/s Tricuspid Valve TR P. [id number]/sRAP [id number] TR Peak Gr.[id number] Pulmonary Vein S1 Xwjqwzbz13.5cm/sS2 Ozfbtzpt50.48cm/s D2 Kufagvtk69.5cm/s LEFT VENTRICLE The left ventricle is normal size. There is normal left ventricular wall thickness. The left ventricu lar systolic function is normal. The Ejection Fraction is 60%. There is normal LV segmental wall christine on. Diastology indeterminate. RIGHT VENTRICLE The right ventricle is borderline dilated. There is normal right ventricular wall thickness. The righ t ventricular systolic function is normal. There is a pacemaker lead in the right ventricle. ATRIA The left atrium size is normal. The right atrium size is normal. The interatrial septum is intact wit h no evidence for an atrial septal defect or patent foramen ovale as noted on 2-D or Doppler imaging. AORTIC VALVE The aortic valve is calcified but opens well. Doppler and Color Flow revealed no significant aortic r egurgitation. There is no significant aortic valvular stenosis. MITRAL VALVE The mitral valve is normal in structure and function. There is no evidence of mitral valve prolapse. There is no mitral valve stenosis. Doppler and Color-flow revealed mild mitral regurgitation. TRICUSPID VALVE The tricuspid valve is normal in structure and function. Doppler and Color Flow revealed mild to mode rate tricuspid regurgitation with an estimated PAP of 45 mmHg. There is no tricuspid valve stenosis. PULMONIC VALVE The pulmonic valve is not well visualized. Doppler and Color Flow revealed trace to mild pulmonic brian vular regurgitation. GREAT VESSELS The aortic root is normal in size. The IVC is normal in size and collapses >50% with inspiration. PERICARDIAL EFFUSION There is moderate left pleural effusion. There is no evidence of significant pericardial effusion. Critical Notification Critical Value: No <Conclusion> The left ventricular systolic function is normal. The Ejection Fraction is 60%. There is normal LV segmental wall motion. There is a pacemaker lead in the right atrium and ventricle. Mild mitral regurgitation. Mild to moderate tricuspid regurgitation with an estimated PAP of 45 mmHg. There is no evidence of significant pericardial effusion. Signed by : Ricardo Juarez, Electronically Approved : 09/01/2018 15:45:01
[2018-09-01 19:16] LABS: INFLUENZA A PATIENT NEGATIVE (NEGATIVE); INFLUENZA B PATIENT NEGATIVE (NEGATIVE)
[2018-09-01] MEDS: BUDESONIDE 0.5 MG/2 ML NEBU. NEB SCH (19:50)
[2018-09-01] MEDS: SUCRALFATE 1 GM TABLET. PO SCH (19:53)
[2018-09-01] MEDS: MONTELUKAST SODIUM 10 MG TABLET. PO SCH (19:53)
[2018-09-01] MEDS: ATORVASTATIN CALCIUM 10 MG TABLET. PO SCH (19:53)
[2018-09-01] MEDS ORDERED: NON FORMULARY ITEM (Mometasone Furoate (Asmanex) 2 PUFF) IH SCH (21:00)
--- NOTE | 2018-09-01 21:55 | CONS ---
DATE OF CONSULTATION: 09/01/2018 PATIENT'S ROOM: ICU 9. REQUESTING PHYSICIAN: Dr. Ward. REASON FOR CONSULTATION: Sepsis. HISTORY OF PRESENT ILLNESS: The patient is a pleasant 68-year-old female with history of pulmonary fibrosis who has been followed at . Also, has a history of multiple ANTIBIOTIC ALLERGIES, but has had Vantin in the past without complications. She states for the past 2-3 weeks, she has felt weak and has had increased urine output, although she denies any dysuria or change in color or odor. On Tuesday, she states she had some loose stools. This subsequently has resolved. However, she was brought to [facility] stating that her son found her on her knees. She denies any gross fevers, chills or sweats. No headaches. No gross shortness of air. She states she was not taking any medications, antibiotics prior to her admission, but she is somewhat of a poor historian. On arrival, she had a temperature of 99.8 initially; however, got to 103.5. Urine was collected and appears to be consistent with urinary tract infection. She was given a dose of levofloxacin, vancomycin, and aztreonam and she has been admitted to the Intensive Care Unit. Additionally, she has received some Solu-Medrol. Currently, she is lying little bit more comfortably. PAST MEDICAL HISTORY: Positive for pulmonary fibrosis. She has atrial fibrillation, hypertension, asthma, pulmonary embolism, irritable bowel, gastroesophageal reflux disease, monoclonal gammopathy, osteoarthritis, fibromyalgia, history of shingles, diabetes, hypothyroidism and osteoporosis. PAST SURGICAL HISTORY: Positive for cholecystectomy, hysterectomy, pacemaker. REVIEW OF SYSTEMS: Otherwise negative except for mentioned above. ALLERGIES: LISTED PENICILLIN, CLINDAMYCIN CAUSING HIVES. CEPHALEXIN AND DOXYCYCLINE CAUSING RASH; however, she has tolerated Vantin. BACTRIM AND ERYTHROMYCIN ARE ALSO LISTED. SOCIAL HISTORY: She lives at home, has a supportive son. No tobacco. FAMILY HISTORY: Positive for diabetes, hypertension, and heart disease. CURRENT MEDICATIONS: Included levofloxacin x 1. She was given vancomycin x 1, aztreonam, Pulmicort, Zyrtec, Plavix, ferrous sulfate, hydralazine, insulin, Synthroid, Solu-Medrol, Singulair, CellCept, Protonix, Asmanex and Coumadin. PHYSICAL EXAMINATION: VITAL SIGNS: T-max was 103.5, most recently 98.7, pulse 91, respirations 12, blood pressure 91/44, satting 100% on 2 liters. CONSTITUTIONAL: She is lying down. She is cooperative. She is a little confused, but she is in no acute distress. HEENT: Pupils equal and reactive. She has normal conjunctivae. Oral cavity, pharynx is clear, dry. NECK: Supple, no JVD. LUNGS: Had some mild crackles. HEART: S1, S2. ABDOMEN: Soft, nontender, no guarding or rebound. EXTREMITIES: Without clubbing, cyanosis or gross edema. SKIN: Otherwise without generalized signs of rash. Warm to touch. NEUROLOGIC: She follows simple commands, but again she is a little bit distant in her responses. PSYCHIATRIC: Affect is flat. LABORATORY VALUES: White count was 35.6 on arrival, currently 27.5, hemoglobin 7.7, platelets 251, segs were 76. Her bands were 14. Creatinine is down to 1.5, was elevated at 2 on arrival. Alkaline phosphatase 152. Troponin of 1.765. ALT 12. Urinalysis concerning for urinary tract infection. Chest x-ray, chronic interstitial changes suggestive of confluent interstitial opacities, right upper lobe. CT scan of the head, no acute intracranial hemorrhage. IMPRESSION: 1. Sepsis present on admission. 2. Leukocytosis. 3. Immunosuppression. 4. ANTIBIOTIC ALLERGIES, has tolerated Vantin. 5. Elevated troponin. 6. Acute kidney injury. RECOMMENDATIONS: We will discontinue the aztreonam, we will begin meropenem. Continue vancomycin. Obtain a flu screen. We will follow up labs and cultures. She is critically ill. I spent 35 minutes of critical care time. Discussed with nursing. Thank you for allowing me to participate in the patient's care. Should you have any further questions, please do not hesitate to contact me. CAROLYN JOHNSON MD DR: THEODORA/lakhwinder JOB#: [id number] / [id number]
[2018-09-02] VITALS (26 sets, daily range): BP systolic 116–161; BP diastolic 58–94
[2018-09-02] MEDS ORDERED: VANCOMYCIN 1 GM in IV NORMAL SALINE 250ML 250 ML IV SCH (03:00)
[2018-09-02 04:47] LABS: BASO % 0 % (0-3); EOS % 0 % (0-3); LYMPH # 0.2 x10^3/uL (1.0-4.8); LYMPH % 1 % (24-48); MEAN CORPUSCULAR HEMOGLOBIN 27 pg (25-35); MEAN CORPUSCULAR HGB CONC 32 g/dL (31-37); MEAN CORPUSCULAR VOLUME 86 fL (79-100); MONO # 1.2 x10^3/uL (0.0-1.1); MONO % 3 % (0-9); NEUT # 37.8 x10^3uL (1.8-7.7); NEUT % 96 % (31-73); PLATELET COUNT 243 x10^3/uL (140-400); RED CELL DISTRIBUTION WIDTH 13.7 % (11.5-14.5); WHITE BLOOD COUNT 39.2 x10^3/uL (4.0-11.0)
[2018-09-02 04:50] LABS: HEMATOCRIT 20.6 % (36.0-47.0); HEMOGLOBIN 6.6 g/dL (12.0-15.5)
[2018-09-02 04:52] LABS: PROTHROMBIN TIME PATIENT 47.3 SEC (11.7-14.0)
[2018-09-02] MEDS: oxyCODONE/APAP 5/325 1 TAB TABLET PO PRN ×4 (05:02→17:59)
[2018-09-02 05:03] LABS: CALCIUM 8.6 mg/dL (8.5-10.1); CREATININE 1.1 mg/dL (0.6-1.0); GFR 59.6; POTASSIUM 3.8 mmol/L (3.5-5.1)
[2018-09-02] MEDS: methylPREDNISolone SOD SUCC PF 125 MG/2 ML VIAL. IV SCH (05:50)
[2018-09-02] MEDS: LEVOTHYROXINE 25 MCG TABLET. PO SCH (05:51)
[2018-09-02] MEDS: MEROPENEM 500 MG in IV NORMAL SALINE 50ML 50 ML IV SCH ×4 (05:51→23:37)
[2018-09-02] MEDS: INSULIN LISPRO 300 UNITS/3 ML INSULN.PEN. SQ SCH ×3 (08:00→16:42)
[2018-09-02] MEDS: PANTOPRAZOLE 40 MG TABLET.DR. PO SCH (08:16)
[2018-09-02] MEDS: METOCLOPRAMIDE 10 MG TABLET. PO SCH (08:16)
[2018-09-02] MEDS: HYDROcodone/APAP 5/325MG 1 TAB TABLET PO PRN ×2 (08:16→23:03)
[2018-09-02] MEDS: IV NORMAL SALINE 1000ML BAG 1,000 ML IV SCH ×2 (08:17→13:14)
[2018-09-02] MEDS: BUDESONIDE 0.5 MG/2 ML NEBU. NEB SCH ×2 (08:30→19:53)
[2018-09-02] MEDS: IPRATRPIUM/ALBUTEROL 0.5/2.5MG 3 ML NEBU. IH SCH ×4 (08:30→19:53)
[2018-09-02] MEDS: ASPIRIN ENTERIC COATED 81 MG TABLET.DR. PO SCH (09:00)
[2018-09-02] MEDS ORDERED: WARFARIN SODIUM 4 MG PO SCH (09:00)
--- NOTE | 2018-09-02 09:01 | PDOC ---
Infectious Disease Note Subjective Subjective c/o dry mouth, otherwise feeling alright No F/C/N/V/D/SOA Anemic, Hgb 6.6, getting a blood transfusion ROS ROS per HPI otherwise neg Vital Sign Vital Signs Vital Signs Date Time Temp Pulse Resp B/P (MAP) Pulse Ox O2 Delivery O2 Flow Rate FiO2 09/02/18 08:30 100 Nasal Cannula 2.0 09/02/18 08:16 21 09/02/18 08:00 98.2 92 156/71 (99) 98.2 Physical Exam PHYSICAL EXAM GENERAL: Propped up in bed, alert, NAD HEENT: Pupils equal and reactive. She has normal conjunctivae. Oral cavity, pharynx is clear, dry. NECK: Supple, no JVD. LUNGS: Diminished aeration bases, nonlabored HEART: S1, S2. ABDOMEN: Soft, nontender, no guarding or rebound. EXTREMITIES: Without clubbing, cyanosis or gross edema. SKIN: Otherwise without generalized signs of rash. Warm to touch. NEUROLOGIC: Oriented to place, follows simple commands, PIV ok Labs Lab Laboratory Tests Test 09/01/18 09:30 09/01/18 12:36 09/01/18 17:40 09/01/18 18:00 Prothrombin Time 32.9 SEC (11.7-14.0) Prothromb Time International Ratio 3.2 (0.8-1.1) Troponin I Quantitative 1.765 ng/mL (0.000-0.055) Glucose (Fingerstick) 124 mg/dL (70-99) 120 mg/dL (70-99) Influenza Type A Antigen Negative (NEGATIVE) Influenza Type B Antigen Negative (NEGATIVE) Test 09/02/18 04:30 White Blood Count 39.2 x10^3/uL (4.0-11.0) Red Blood Count 2.40 x10^6/uL (3.50-5.40) Hemoglobin 6.6 g/dL (12.0-15.5) Hematocrit 20.6 % (36.0-47.0) Mean Corpuscular Volume 86 fL (79-100) Mean Corpuscular Hemoglobin 27 pg (25-35) Mean Corpuscular Hemoglobin Concent 32 g/dL (31-37) Red Cell Distribution Width 13.7 % (11.5-14.5) Platelet Count 243 x10^3/uL (140-400) Neutrophils (%) (Auto) 96 % (31-73) Lymphocytes (%) (Auto) 1 % (24-48) Monocytes (%) (Auto) 3 % (0-9) Eosinophils (%) (Auto) 0 % (0-3) Basophils (%) (Auto) 0 % (0-3) Neutrophils # (Auto) 37.8 x10^3uL (1.8-7.7) Lymphocytes # (Auto) 0.2 x10^3/uL (1.0-4.8) Monocytes # (Auto) 1.2 x10^3/uL (0.0-1.1) Eosinophils # (Auto) 0.0 x10^3/uL (0.0-0.7) Basophils # (Auto) 0.0 x10^3/uL (0.0-0.2) Prothrombin Time 47.3 SEC (11.7-14.0) Prothromb Time International Ratio 5.1 (0.8-1.1) Sodium Level 140 mmol/L (136-145) Potassium Level 3.8 mmol/L (3.5-5.1) Chloride Level 106 mmol/L (98-107) Carbon Dioxide Level 23 mmol/L (21-32) Anion Gap 11 (6-14) Blood Urea Nitrogen 17 mg/dL (7-20) Creatinine 1.1 mg/dL (0.6-1.0) Estimated GFR (Cockcroft-Gault) 59.6 Glucose Level 135 mg/dL (70-99) Calcium Level 8.6 mg/dL (8.5-10.1) Thyroid Stimulating Hormone (TSH) 0.336 uIU/mL (0.358-3.74) Micro BLOOD CULTURE Final GRAM NEGATIVE RODS SEEN IN 2 OF 4 BOTTLES; 2 SETS WERE DRAWN; RESULTS WERE CALLED TO SHAHNAZ CARLOS IN ICU AT 0840; 09/02/18 BY ERIC. THE BLOOD CULTURES HAVE BEEN SENT TO [facility] FOR FURTHER WORKUP. Objective Assessment Sepsis present on admission, 08/31 with GNR bacteremia Anemia Leukocytosis, likely reactive in part steroids Immunosuppression. ANTIBIOTIC ALLERGIES, has tolerated Vantin. Elevated troponin. Acute kidney injury, better Plan Plan of Care Cont Meropenem - clinically looks better D/c Vanc Anemia per Dr. Ward Flu screen - neg F/u labs and cults Critically ill D/w nursing SUBLETTE,BELLE Larios APRN Sep 02, 2018 09:01 CAROLYN JOHNSON MD Sep 02, 2018 12:52
[2018-09-02] MEDS: MYCOPHENOLATE MOFETIL 250 MG CAPSULE. PO SCH ×2 (09:38→21:01)
[2018-09-02] MEDS: ONDANSETRON PF 4 MG/2 ML VIAL. IV PRN (09:38)
[2018-09-02] MEDS: MAGNESIUM OXIDE 400 MG TABLET PO SCH (09:39)
[2018-09-02] MEDS: SUCRALFATE 1 GM TABLET. PO SCH (09:39)
[2018-09-02] MEDS: CYANOCOBALAMIN (VITAMIN B-12) 1,000 MCG TABLET. PO SCH (09:39)
[2018-09-02] MEDS: CETIRIZINE HCL 10 MG TABLET. PO SCH (09:39)
[2018-09-02] MEDS: ASCORBIC ACID 500 MG TABLET PO SCH (09:39)
[2018-09-02] MEDS: FERROUS SULFATE 325 MG TABLET. PO SCH ×3 (09:39→21:02)
[2018-09-02] MEDS: HYDROXYCHLOROQUINE 200 MG TABLET PO SCH ×2 (09:39→21:02)
[2018-09-02] MEDS: cycloSPORINE 0.05% OPHTH DROPERETTE. OU SCH ×2 (09:40→21:01)
[2018-09-02] MEDS: POLYVINYL ALCOHOL 1.4% OPHTH SOLUTION 15ML BOTTLE. OU SCH ×4 (09:40→21:01)
--- NOTE | 2018-09-02 10:39 | PDOC ---
PROGRESS NOTES Subjective Subjective feeling better today Objective Objective Vital Signs Date Time Temp Pulse Resp B/P (MAP) Pulse Ox O2 Delivery O2 Flow Rate FiO2 09/02/18 10:00 105 19 127/62 (83) 100 Nasal Cannula 2.0 09/02/18 09:59 98.0 98.0 Intake and Output 09/02/18 07:00 Intake Total 3889.22 ml Output Total 353 ml Balance 3536.22 ml Intake Oral 210 ml IV Total 3679.22 ml Output Urine Total 350 ml Stool Total 3 ml # Voids 3 Physical Exam Abdomen: Soft, No tenderness Heart: Regular rate (SR), Normal S1, Normal S2, Other (distant heart sounds) Extremities: No cyanosis, Other (trace LE edema) General: Alert, Oriented X3, Cooperative, No acute distress HEENT: Mucous membr. moist/pink Lungs: Other (basilar crackles with O2 at 2LPM) MUSCULOSKELETAL: Osteoarthritic changes both hands Neuro: Normal speech, Sensation intact Psych/Mental Status: Other (flat affect) Skin: Other (multiple m,inuste healed scabs to UE) Diagnosis Problem List Problems Medical Problems: (1) Hypomagnesemia Status: Acute (2) Hyponatremia Status: Acute (3) Renal insufficiency Status: Acute (4) Sepsis Status: Acute Assessment Assessment Problems Medical Problems: (1) Hypomagnesemia Status: Acute (2) Hyponatremia Status: Acute (3) Renal insufficiency Status: Acute (4) Sepsis Status: Acute FINAL IMPRESSION: 1. Acute sepsis.Gram neg bacteremia. 2. Leukocytosis. 3. Urinary tract infection. 4. Pneumonitis. 5. Interstitial lung disease. 6. Hyponatremia. 7. Acute kidney failure. 8. Diabetes. 9. Chronic immune suppression. 10. Scleroderma. 11. History of deep venous thrombosis, pulmonary embolism, on Coumadin. 12. Anxiety. 13. Depression. 14. Gastroesophageal reflux disease. 15. Multiple allergies. 16. Non-ST elevation myocardial infarction with elevated troponin. 17.Hypotension PLAN: blood c/s positive for gram neg rods in 2/4 bottles. BP improved with iv fluids kidney function improved with iv hydration anemia hb 6.7 ,1 unit transfused coagulopathy,inr 5.3 holding coumadin. transfer out of ICU. pt/ot At this time, was admit to hospital. Urine cultures, blood cultures given, fluid bolus 3 liters, started on broad-spectrum antibiotics, vancomycin and Levaquin Azactam. ID is consulted. The patient was also seen by Cardiology secondary to elevated troponin. The patient is already on Coumadin and started on Plavix. Echocardiogram and see how the patient's condition improves. The patient's long-term prognosis is guarded. Plan Plan of Care Problems Medical Problems: (1) Hypomagnesemia Status: Acute (2) Hyponatremia Status: Acute (3) Renal insufficiency Status: Acute (4) Sepsis Status: Acute Comment Review of Relevant I have reviewed the following items bill (where applicable) has been applied. Labs Laboratory Tests Test 09/01/18 12:36 09/01/18 17:40 09/01/18 18:00 09/02/18 04:30 Glucose (Fingerstick) 124 mg/dL (70-99) 120 mg/dL (70-99) Influenza Type A Antigen Negative (NEGATIVE) Influenza Type B Antigen Negative (NEGATIVE) White Blood Count 39.2 x10^3/uL (4.0-11.0) Red Blood Count 2.40 x10^6/uL (3.50-5.40) Hemoglobin 6.6 g/dL (12.0-15.5) Hematocrit 20.6 % (36.0-47.0) Mean Corpuscular Volume 86 fL (79-100) Mean Corpuscular Hemoglobin 27 pg (25-35) Mean Corpuscular Hemoglobin Concent 32 g/dL (31-37) Red Cell Distribution Width 13.7 % (11.5-14.5) Platelet Count 243 x10^3/uL (140-400) Neutrophils (%) (Auto) 96 % (31-73) Lymphocytes (%) (Auto) 1 % (24-48) Monocytes (%) (Auto) 3 % (0-9) Eosinophils (%) (Auto) 0 % (0-3) Basophils (%) (Auto) 0 % (0-3) Neutrophils # (Auto) 37.8 x10^3uL (1.8-7.7) Lymphocytes # (Auto) 0.2 x10^3/uL (1.0-4.8) Monocytes # (Auto) 1.2 x10^3/uL (0.0-1.1) Eosinophils # (Auto) 0.0 x10^3/uL (0.0-0.7) Basophils # (Auto) 0.0 x10^3/uL (0.0-0.2) Prothrombin Time 47.3 SEC (11.7-14.0) Prothromb Time International Ratio 5.1 (0.8-1.1) Sodium Level 140 mmol/L (136-145) Potassium Level 3.8 mmol/L (3.5-5.1) Chloride Level 106 mmol/L (98-107) Carbon Dioxide Level 23 mmol/L (21-32) Anion Gap 11 (6-14) Blood Urea Nitrogen 17 mg/dL (7-20) Creatinine 1.1 mg/dL (0.6-1.0) Estimated GFR (Cockcroft-Gault) 59.6 Glucose Level 135 mg/dL (70-99) Calcium Level 8.6 mg/dL (8.5-10.1) Thyroid Stimulating Hormone (TSH) 0.336 uIU/mL (0.358-3.74) Test 09/02/18 08:23 Glucose (Fingerstick) 119 mg/dL (70-99) Microbiology 08/31/18 Blood Culture - Final, Complete Medications Current Medications Albuterol/ Ipratropium (Duoneb) 3 ml QID IH Last administered on 09/02/18 08: 30; Start 09/01/18 at 13:00 Artificial Tears (Artificial Tears) 1 drop QID OU Last administered on 09:40; Start 09/01/18 at 13:00 Ascorbic Acid (Vitamin C) 500 mg DAILY PO Last administered on 09/02/18 09:39 ; Start 09/01/18 at 12:00 Aspirin (Ecotrin) 81 mg BID PO Last administered on 09/01/18 19:53; Start at 12:00 Atorvastatin Calcium (Lipitor) 10 mg QHS PO Last administered on 09/01/18 19: 53; Start 09/01/18 at 21:00 Aztreonam (Azactam) 1 gm Q8HRS IVP ; Start 09/01/18 at 11:01; Stop 09/01/18 at 11:32; Status DC Budesonide (Pulmicort) 0.5 mg RTBID NEB Last administered on 2/23/19at 08:30; Start 09/01/18 at 20:00 Cetirizine HCl (ZyrTEC) 10 mg DAILY PO Last administered on 09/02/18 09:39; Start 09/01/18 at 12:00 Cyanocobalamin (Vitamin B-12) 1,000 mcg DAILY PO Last administered on 09:39; Start 09/01/18 at 12:00 Cyclosporine (Restasis) 1 drop BID OU Last administered on 09/02/18 09:40; Start 09/01/18 at 12:00 Ferrous Sulfate (Feosol) 325 mg TID PO Last administered on 09/02/18 09:39; Start 09/01/18 at 14:00 Hydroxychloroquine Sulfate (Plaquenil) 200 mg BID PO Last administered on 09:39; Start 09/01/18 at 12:00 Insulin Human Lispro (HumaLOG) 0-7 UNITS TIDWMEALS SQ ; Start 09/01/18 at 12:00 Levothyroxine Sodium (Synthroid) 25 mcg DAILY06 PO Last administered on 05:51; Start 09/01/18 at 11:00 Magnesium Oxide (Magnesium Oxide) 400 mg DAILY PO Last administered on 09:39; Start 09/01/18 at 12:00 Meropenem 500 mg/ Sodium Chloride 50 ml @ 100 mls/hr Q6HRS IV Last administered on 09/02/18 05:51; Start 09/01/18 at 12:00 Methylprednisolone Sodium Succinate (SOLU-Medrol 125MG VIAL) 40 mg Q8HRS IV Last administered on 09/02/18 05:50; Start 09/01/18 at 14:00 Metoclopramide HCl (Reglan) 10 mg QIDACHS PO Last administered on 09/02/18 08: 16; Start 09/01/18 at 11:30 Montelukast Sodium (Singulair) 10 mg QHS PO Last administered on 09/01/18 19: 53; Start 09/01/18 at 21:00 Mycophenolate Mofetil (Cellcept) 750 mg BID PO Last administered on 09/02/18 09:38; Start 09/01/18 at 12:00 Non-Formulary Medication (Mometasone Furoate (Asmanex)) 2 puff BID IH ; Start at 21:00; Stop 09/01/18 at 21:00; Status DC Non-Formulary Medication (Warfarin Sodium (Coumadin)) 4 mg DAILY PO ; Start at 09:00; Stop 09/02/18 at 09:00; Status DC Ondansetron HCl (Zofran) 4 mg PRN Q6HRS PRN IV NAUSEA/VOMITING Last administered on 09/02/18at 09:38; Start 09/02/18 at 09:30 Pantoprazole Sodium (Protonix) 40 mg DAILYAC PO Last administered on 09/02/18at 08:16; Start 09/01/18 at 12:00 Sucralfate (Carafate) 1 gm BID PO Last administered on 09/02/18at 09:39; Start 09/01/18 at 21:00 Vancomycin HCl (Vanco Per Pharmacy) 1 each PRN DAILY PRN MC SEE COMMENTS Last administered on 09/01/18at 12:26; Start 09/01/18 at 10:45 Vancomycin HCl (Vancomycin Trough Level) 1 each 1X ONCE MC ; Start 09/03/18 at 02:30; Stop 09/03/18 at 02:31 Vancomycin HCl 1 gm/Sodium Chloride 250 ml @ 250 mls/hr Q24H IV Last administered on 09/02/18at 03:04; Start 09/02/18 at 03:00 Warfarin Sodium (Coumadin - No Dose Today) 1 each 1X WARF ONCE MC ; Start 09/01 at 16:00; Stop 09/01/18 at 16:01; Status DC Warfarin Sodium (Coumadin Per Pharmacy) 1 each PRN DAILY PRN MC SEE COMMENTS Last administered on 09/01/18at 12:16; Start 09/01/18 at 11:45; Stop 09/01/18 at 14:48; Status DC Vitals/I & O Vital Sign - Last 24 Hours 09/01/18 09/01/18 09/01/18 09/01/18 11:00 11:49 12:00 12:00 Temp 98.8 98.8 Pulse 92 91 Resp 18 14 B/P (MAP) 103/66 (78) 119/55 (76) Pulse Ox 100 97 100 O2 Delivery Nasal Cannula Room Air Nasal Cannula Nasal Cannula O2 Flow Rate 2.0 2.0 2.0 09/01/18 09/01/18 09/01/18 09/01/18 13:00 14:00 15:00 15:24 Pulse 93 94 95 Resp 18 14 19 B/P (MAP) 120/52 (74) 121/64 (83) 138/56 (83) Pulse Ox 100 100 100 O2 Delivery Nasal Cannula Nasal Cannula Nasal Cannula Nasal Cannula O2 Flow Rate 2.0 2.0 2.0 2.0 09/01/18 09/01/18 09/01/18 09/01/18 16:00 16:00 17:00 18:00 Temp 98.6 98.6 Pulse 94 90 90 Resp 13 20 18 B/P (MAP) 128/67 (87) 106/53 (70) 109/50 (69) Pulse Ox 100 100 100 O2 Delivery Nasal Cannula Nasal Cannula Nasal Cannula Nasal Cannula O2 Flow Rate 2.0 2.0 2.0 2.0 09/01/18 09/01/18 09/01/18 09/01/18 19:00 19:40 19:47 20:00 Temp 98.6 98.6 Pulse 86 Resp 14 14 B/P (MAP) 106/48 (67) Pulse Ox 100 100 O2 Delivery Nasal Cannula Nasal Cannula Nasal Cannula O2 Flow Rate 2.0 3.0 2.0 09/01/18 09/01/18 09/01/18 09/01/18 20:00 21:00 22:00 23:00 Temp 98.6 98.6 Pulse 90 92 92 94 Resp 18 14 17 16 B/P (MAP) 82/57 (65) 123/61 (81) 135/64 (87) 127/65 (85) Pulse Ox 100 100 100 100 O2 Delivery Nasal Cannula Nasal Cannula Nasal Cannula Nasal Cannula O2 Flow Rate 2.0 2.0 2.0 2.0 09/02/18 09/02/18 09/02/18 09/02/18 00:00 00:05 01:00 02:00 Pulse 95 94 92 Resp 15 16 18 B/P (MAP) 125/69 (87) 116/94 (101) 137/68 (91) Pulse Ox 100 100 100 O2 Delivery Nasal Cannula Nasal Cannula Nasal Cannula Nasal Cannula O2 Flow Rate 2.0 2.0 2.0 2.0 09/02/18 09/02/18 09/02/18 09/02/18 03:00 04:00 04:00 05:00 Temp 98.3 98.3 Pulse 94 94 94 Resp 25 B/P (MAP) 134/69 (90) 133/64 (87) 127/70 (89) Pulse Ox 100 100 100 O2 Delivery Nasal Cannula Nasal Cannula Nasal Cannula Nasal Cannula O2 Flow Rate 2.0 2.0 2.0 2.0 09/02/18 09/02/18 09/02/18 09/02/18 05:02 06:00 07:00 07:55 Temp 98.2 98.2 Pulse 93 92 94 Resp B/P (MAP) 146/58 (87) 143/92 (109) 143/92 Pulse Ox 100 100 100 O2 Delivery Nasal Cannula Nasal Cannula Nasal Cannula O2 Flow Rate 2.0 2.0 2.0 09/02/18 09/02/18 09/02/18 09/02/18 08:00 08:00 08:10 08:16 Temp 98.2 98.2 98.2 98.2 Pulse 92 100 Resp B/P (MAP) 156/71 (99) 154/72 Pulse Ox 100 100 O2 Delivery Nasal Cannula Nasal Cannula Nasal Cannula O2 Flow Rate 2.0 2.0 2.0 09/02/18 09/02/18 09/02/18 09/02/18 08:30 09:00 09:16 09:40 Pulse 101 Resp B/P (MAP) 142/72 (95) Pulse Ox 100 100 100 100 O2 Delivery Nasal Cannula Nasal Cannula Nasal Cannula Nasal Cannula O2 Flow Rate 2.0 2.0 2.0 2.0 09/02/18 09/02/18 09:59 10:00 Temp 98.0 98.0 Pulse 105 105 Resp B/P (MAP) 152/66 127/62 (83) Pulse Ox 100 O2 Delivery Nasal Cannula O2 Flow Rate 2.0 Intake and Output 09/01/18 09/01/18 09/02/18 15:00 23:00 07:00 Intake Total 260 ml 2327.22 ml 1302 ml Output Total 350 ml 1 ml 2 ml Balance -90 ml 2326.22 ml 1300 ml Nutrition Consultation Dietary Evaluation: Recommendations by RD: Increase Calorie Intake, Protein supplementation Comments: REC soft diet, ADA/cardiac, will adjust diet order REC glucerna BID if able [place] food preferences and provide snacks as requested Expected Outcomes/Goals: PO intake to meet >75% est needs Malnutrition Findings: Weight Status: Appropriate CHARLES VASQUZE MD Sep 02, 2018 10:39
[2018-09-02] MEDS: ACETAMINOPHEN 325 MG TABLET. PO PRN (13:32)
--- NOTE | 2018-09-02 14:08 | PDOC2 ---
GI CONSULT Reason For Consult: Fall in hemoglobin. HPI: HPI: 68 y/o female admitted with profound weakness; found to have GNR bacteremia/ sepsis. Initially hypotensive, not now. Hemoglobin on admission 9; fell to 6.6 today. To be transfused. Per patient and staff, no clear hematochezia or melena; "dark" stools mentioned, but not black. Chronically on warfarin; INR 5 + today. Does complain of right lower abdominal and back pain above her norm. H/o GERD on chronic PPI; says still taking. More than one EGD in the past. No dysphagia. H/o PUD, H.pylori positive; have no information as to whether this ever treated. S/p issa. No liver history. One episode of "pancreatitis" in the past. No tobacco or alcohol use. Typically free of diarrhea or constipation. Colonoscopies in 2011 (polyp) and 2015 (normal save diverticulosis apparently). PMH: PMH: Asthma, bronchiectasis, PSS, pulm fibrosis, DVT/PE, A. fib, SSS post-PPMI, cataracts, DM2, FMS, seizures, HLP, HTN, MGUS, OA, prior Herpes zoster, hypothyroidism, OP, Parkinson's. S/P issa, hyster, tonsillectomy, appendectomy , PPMI. FH: Family History: CAD, DM Social History: Smoke: No ALCOHOL: none Drugs: None ROS: GEN: Denies fevers, chills, sweats HEENT: Denies blurred vision, sore throat CV: Denies chest pain RESP: Denies cough GI: Per HPI : Denies hematuria, dysuria ENDO: Denies weight changes NEURO: Denies confusion, dizziness MSK: Denies weakness, joint pain/swelling SKIN: Denies jaundice, pruritus Vitals: Vitals: Vital Signs Date Time Temp Pulse Resp B/P (MAP) Pulse Ox O2 Delivery O2 Flow Rate FiO2 09/02/18 13:32 14 99 Nasal Cannula 2.0 09/02/18 13:00 101 155/74 (101) 09/02/18 09:59 98.0 98.0 Labs: Labs: Laboratory Tests Test 09/01/18 17:40 09/01/18 18:00 09/02/18 04:30 09/02/18 08:23 Glucose (Fingerstick) 120 mg/dL (70-99) 119 mg/dL (70-99) Influenza Type A Antigen Negative (NEGATIVE) Influenza Type B Antigen Negative (NEGATIVE) White Blood Count 39.2 x10^3/uL (4.0-11.0) Red Blood Count 2.40 x10^6/uL (3.50-5.40) Hemoglobin 6.6 g/dL (12.0-15.5) Hematocrit 20.6 % (36.0-47.0) Mean Corpuscular Volume 86 fL (79-100) Mean Corpuscular Hemoglobin 27 pg (25-35) Mean Corpuscular Hemoglobin Concent 32 g/dL (31-37) Red Cell Distribution Width 13.7 % (11.5-14.5) Platelet Count 243 x10^3/uL (140-400) Neutrophils (%) (Auto) 96 % (31-73) Lymphocytes (%) (Auto) 1 % (24-48) Monocytes (%) (Auto) 3 % (0-9) Eosinophils (%) (Auto) 0 % (0-3) Basophils (%) (Auto) 0 % (0-3) Neutrophils # (Auto) 37.8 x10^3uL (1.8-7.7) Lymphocytes # (Auto) 0.2 x10^3/uL (1.0-4.8) Monocytes # (Auto) 1.2 x10^3/uL (0.0-1.1) Eosinophils # (Auto) 0.0 x10^3/uL (0.0-0.7) Basophils # (Auto) 0.0 x10^3/uL (0.0-0.2) Prothrombin Time 47.3 SEC (11.7-14.0) Prothromb Time International Ratio 5.1 (0.8-1.1) Sodium Level 140 mmol/L (136-145) Potassium Level 3.8 mmol/L (3.5-5.1) Chloride Level 106 mmol/L (98-107) Carbon Dioxide Level 23 mmol/L (21-32) Anion Gap 11 (6-14) Blood Urea Nitrogen 17 mg/dL (7-20) Creatinine 1.1 mg/dL (0.6-1.0) Estimated GFR (Cockcroft-Gault) 59.6 Glucose Level 135 mg/dL (70-99) Calcium Level 8.6 mg/dL (8.5-10.1) Thyroid Stimulating Hormone (TSH) 0.336 uIU/mL (0.358-3.74) Allergies: Coded Allergies: Cephalexin Monohydrate (Verified Allergy, Intermediate, 05/03/16) Penicillins (Verified Allergy, Intermediate, 05/03/16) aspirin (Verified Allergy, Intermediate, 05/03/16) celecoxib (Verified Allergy, Intermediate, 05/03/16) cephalexin (Verified Allergy, Intermediate, 05/03/16) clindamycin (Verified Allergy, Intermediate, 05/03/16) codeine (Verified Allergy, Intermediate, 05/03/16) cyclobenzaprine (Verified Allergy, Intermediate, 05/03/16) cyclobenzaprine HCl (Verified Allergy, Intermediate, 05/03/16) doxycycline (Verified Allergy, Intermediate, has tolerated Doxycycline prev.admissions, 05/03/16) erythromycin base (Verified Allergy, Intermediate, 05/03/16) rofecoxib (Verified Allergy, Intermediate, 05/03/16) sulfamethoxazole (Verified Allergy, Intermediate, 05/03/16) sulfanilamide (Verified Allergy, Intermediate, 05/03/16) trimethoprim (Verified Allergy, Intermediate, 05/03/16) valdecoxib (Verified Allergy, Intermediate, 05/03/16) Medications: Current Medications Medications (Trade) Dose Ordered Sig/Ammon Route PRN Reason Start Time Stop Time Status Last Admin Dose Admin Methylprednisolone Sodium Succinate (SOLU-Medrol 125MG VIAL) 40 mg Q8HRS IV 09/01/18 14:00 09/02/18 10:35 DC 09/02/18 05:50 Atorvastatin Calcium (Lipitor) 10 mg QHS PO 09/01/18 21:00 09/01/18 19:53 Ferrous Sulfate (Feosol) 325 mg TID PO 09/01/18 14:00 09/02/18 09:39 Montelukast Sodium (Singulair) 10 mg QHS PO 09/01/18 21:00 09/01/18 19:53 Sucralfate (Carafate) 1 gm BID PO 09/01/18 21:00 09/02/18 09:39 Budesonide (Pulmicort) 0.5 mg RTBID NEB 09/01/18 20:00 09/02/18 08:30 Vancomycin HCl 1 gm/Sodium Chloride 250 ml @ 250 mls/hr Q24H IV 09/02/18 03:00 09/02/18 12:50 DC 09/02/18 03:04 Ondansetron HCl (Zofran) 4 mg PRN Q6HRS PRN IV NAUSEA/VOMITING 09/02/18 09:30 09/02/18 09:38 PE: GEN: NAD HEENT: Atraumatic, PERRLA LUNGS: CTAB HEART: RRR, no murmurs PPM right infraclavicular area ABD: NABS, S/ND, mildly tender RLQ, no masses EXTREMITY: No edema SKIN: No rashes, no jaundice NEURO/PSYCH: A & O 3 A/P: A/P: IMP: Fall in hemoglobin w/o apparent GI loss clinically. Has developed some back complaints; RP hematoma? GERD, in past on PPI, still? H/o H.pylori-positive PUD; treated? S/p issa. H/o "pancreatitis" H/o adenoma. Iatrogenic hypoprothrombinemia, likely from recent antibiotics, not eating. Would think if actively bleeding from gut it would be evident. REC: CT A/P w/o contrast--r/o retroperitoneal hematoma. Hold warfarin and allow INR to normalize. If evidence for active bleeding, FFP and Vit, K to speed process. PPI if not on. Transfuse, follow hemoglobin/clinically. --other pending. Thank you for allowing me to assist in the care of this patient. Please call if questions. REDDY WHITEHEAD MD Sep 02, 2018 14:08
--- NOTE | 2018-09-02 14:52 | RAD ---
PQRS Compliance statement: One or more of the following individualized dose reduction techniques were utilized for this examination: 1. Automated exposure control. 2. Adjustment of the mA and/or kV according to patient size. 3. Use of iterative reconstruction technique. Indication:EVAL FOR BLEED; LOW HEMOGLOBIN TECHNIQUE: CT abdomen and pelvis without IV contrast with multiplanar reformats. COMPARISON: None FINDINGS: Limited evaluation of solid abdominal and pelvic organs due to lack of IV contrast. Heart is normal in size. No pericardial or pleural effusion. Emphysematous changes in the lung bases. Noncontrast appearance of the liver, spleen, pancreas, adrenals within normal limits. Status post cholecystectomy. No nephrolithiasis or hydronephrosis. Shotty multiple retroperitoneal lymph nodes are seen most likely reactive. No free pelvic fluid or ascites. No bowel obstruction. Normal appendix. Status post hysterectomy. Urinary bladder is distended without radiopaque stone. No pneumoperitoneum. No suspicious bony lesion. IMPRESSION: Limited evaluation of solid abdominal and pelvic organs due to lack of IV contrast. 1. Moderate emphysema in the visualized lung bases. 2. No acute findings. Electronically signed by: Anders Chase DO (09/02/2018 2:50 PM) [facility]
--- NOTE | 2018-09-02 15:49 | PDOC ---
PROGRESS NOTES Subjective Subjective Patient denied any chest pain. Objective Objective Vital Signs Date Time Temp Pulse Resp B/P (MAP) Pulse Ox O2 Delivery O2 Flow Rate FiO2 09/02/18 15:05 16 99 Nasal Cannula 2.0 09/02/18 15:00 98 150/65 (93) 09/02/18 09:59 98.0 98.0 Intake and Output 09/02/18 07:00 Intake Total 3889.22 ml Output Total 353 ml Balance 3536.22 ml Intake Oral 210 ml IV Total 3679.22 ml Output Urine Total 350 ml Stool Total 3 ml # Voids 3 Physical Exam Abdomen: Soft, No tenderness Heart: Regular rate (SR), Normal S1, Normal S2, Other (distant heart sounds) Extremities: No cyanosis, Other (trace LE edema) General: Alert, Oriented X3, Cooperative, No acute distress HEENT: Mucous membr. moist/pink Lungs: Other (basilar crackles with O2 at 2LPM) Neuro: Normal speech Psych/Mental Status: Other (flat affect) Skin: Other (multiple m,inuste healed scabs to UE) Assessment Assessment 1. Sepsis with UTI: Continue antibiotics per Dr. Ward 2. NSTEMI most probably demand ischemia: Trop at 1.04. Patient denied any chest pain. 2-D echo showed LVEF 60% without any wall motion abnormalities. We will consider ischemic evaluation as an outpatient. 3. SSS s/p PPM implantation, stable 4. Severe anemia s/p PRBC transfusion. Continue workup per GI team 5. Chronic pulmonary fibrosis with hx of PE/MGUS/sjogren and noted current use of cellcept per [facility] 6. DM2: per im 7. HLP: statins Plan Plan of Care Problems Medical Problems: (1) Hypomagnesemia Status: Acute (2) Hyponatremia Status: Acute (3) Renal insufficiency Status: Acute (4) Sepsis Status: Acute Comment Review of Relevant I have reviewed the following items bill (where applicable) has been applied. Labs Laboratory Tests Test 09/01/18 17:40 09/01/18 18:00 09/02/18 04:30 09/02/18 08:23 Glucose (Fingerstick) 120 mg/dL (70-99) 119 mg/dL (70-99) Influenza Type A Antigen Negative (NEGATIVE) Influenza Type B Antigen Negative (NEGATIVE) White Blood Count 39.2 x10^3/uL (4.0-11.0) Red Blood Count 2.40 x10^6/uL (3.50-5.40) Hemoglobin 6.6 g/dL (12.0-15.5) Hematocrit 20.6 % (36.0-47.0) Mean Corpuscular Volume 86 fL (79-100) Mean Corpuscular Hemoglobin 27 pg (25-35) Mean Corpuscular Hemoglobin Concent 32 g/dL (31-37) Red Cell Distribution Width 13.7 % (11.5-14.5) Platelet Count 243 x10^3/uL (140-400) Neutrophils (%) (Auto) 96 % (31-73) Lymphocytes (%) (Auto) 1 % (24-48) Monocytes (%) (Auto) 3 % (0-9) Eosinophils (%) (Auto) 0 % (0-3) Basophils (%) (Auto) 0 % (0-3) Neutrophils # (Auto) 37.8 x10^3uL (1.8-7.7) Lymphocytes # (Auto) 0.2 x10^3/uL (1.0-4.8) Monocytes # (Auto) 1.2 x10^3/uL (0.0-1.1) Eosinophils # (Auto) 0.0 x10^3/uL (0.0-0.7) Basophils # (Auto) 0.0 x10^3/uL (0.0-0.2) Prothrombin Time 47.3 SEC (11.7-14.0) Prothromb Time International Ratio 5.1 (0.8-1.1) Sodium Level 140 mmol/L (136-145) Potassium Level 3.8 mmol/L (3.5-5.1) Chloride Level 106 mmol/L (98-107) Carbon Dioxide Level 23 mmol/L (21-32) Anion Gap 11 (6-14) Blood Urea Nitrogen 17 mg/dL (7-20) Creatinine 1.1 mg/dL (0.6-1.0) Estimated GFR (Cockcroft-Gault) 59.6 Glucose Level 135 mg/dL (70-99) Calcium Level 8.6 mg/dL (8.5-10.1) Thyroid Stimulating Hormone (TSH) 0.336 uIU/mL (0.358-3.74) Test 09/02/18 14:20 Hemoglobin 8.9 g/dL (12.0-15.5) Microbiology 09/01/18 Blood Culture - Preliminary, Resulted NO GROWTH AFTER 1 DAY Medications Current Medications Aspirin (Ecotrin) 81 mg DAILY PO ; Start 09/03/18 at 09:00 Atorvastatin Calcium (Lipitor) 10 mg QHS PO Last administered on 09/01/18at 19: 53; Start 09/01/18 at 21:00 Budesonide (Pulmicort) 0.5 mg RTBID NEB Last administered on 09/02/18at 08:30; Start 09/01/18 at 20:00 Methylprednisolone Sodium Succinate (SOLU-Medrol 40MG VIAL) 40 mg Q12HR IV ; Start 09/02/18 at 21:00 Montelukast Sodium (Singulair) 10 mg QHS PO Last administered on 09/01/18at 19: 53; Start 09/01/18 at 21:00 Non-Formulary Medication (Mometasone Furoate (Asmanex)) 2 puff BID IH ; Start at 21:00; Stop 09/01/18 at 21:00; Status DC Non-Formulary Medication (Warfarin Sodium (Coumadin)) 4 mg DAILY PO ; Start at 09:00; Stop 09/02/18 at 09:00; Status DC Ondansetron HCl (Zofran) 4 mg PRN Q6HRS PRN IV NAUSEA/VOMITING Last administered on 09/02/18at 09:38; Start 09/02/18 at 09:30 Pantoprazole Sodium (PROTONIX VIAL for IV PUSH) 40 mg BIDAC IVP ; Start at 16:30 Pantoprazole Sodium (PROTONIX VIAL for IV PUSH) 40 mg DAILYAC IVP ; Start at 07:30; Stop 09/03/18 at 07:30; Status DC Sucralfate (Carafate) 1 gm BID PO Last administered on 09/02/18at 09:39; Start 09/01/18 at 21:00 Vancomycin HCl (Vancomycin Trough Level) 1 each 1X ONCE MC ; Start 09/03/18 at 02:30; Stop 09/03/18 at 02:30; Status DC Vancomycin HCl 1 gm/Sodium Chloride 250 ml @ 250 mls/hr Q24H IV Last administered on 09/02/18at 03:04; Start 09/02/18 at 03:00; Stop 09/02/18 at 12:50 ; Status DC Warfarin Sodium (Coumadin - No Dose Today) 1 each 1X WARF ONCE MC ; Start 09/01 at 16:00; Stop 09/01/18 at 16:01; Status DC Vitals/I & O Vital Sign - Last 24 Hours 09/01/18 09/01/18 09/01/18 09/01/18 16:00 16:00 17:00 18:00 Temp 98.6 98.6 Pulse 94 90 90 Resp 13 20 18 B/P (MAP) 128/67 (87) 106/53 (70) 109/50 (69) Pulse Ox 100 100 100 O2 Delivery Nasal Cannula Nasal Cannula Nasal Cannula Nasal Cannula O2 Flow Rate 2.0 2.0 2.0 2.0 09/01/18 09/01/18 09/01/18 09/01/18 19:00 19:40 19:47 20:00 Temp 98.6 98.6 Pulse 86 Resp 14 14 B/P (MAP) 106/48 (67) Pulse Ox 100 100 O2 Delivery Nasal Cannula Nasal Cannula Nasal Cannula O2 Flow Rate 2.0 3.0 2.0 09/01/18 09/01/18 09/01/18 09/01/18 20:00 21:00 22:00 23:00 Temp 98.6 98.6 Pulse 90 92 92 94 Resp 18 14 17 16 B/P (MAP) 82/57 (65) 123/61 (81) 135/64 (87) 127/65 (85) Pulse Ox 100 100 100 100 O2 Delivery Nasal Cannula Nasal Cannula Nasal Cannula Nasal Cannula O2 Flow Rate 2.0 2.0 2.0 2.0 09/02/18 09/02/18 09/02/18 09/02/18 00:00 00:05 01:00 02:00 Pulse 95 94 92 Resp 15 16 18 B/P (MAP) 125/69 (87) 116/94 (101) 137/68 (91) Pulse Ox 100 100 100 O2 Delivery Nasal Cannula Nasal Cannula Nasal Cannula Nasal Cannula O2 Flow Rate 2.0 2.0 2.0 2.0 09/02/18 09/02/18 09/02/18 2/23/19 03:00 04:00 04:00 05:00 Temp 98.3 98.3 Pulse 94 94 94 Resp 25 B/P (MAP) 134/69 (90) 133/64 (87) 127/70 (89) Pulse Ox 100 100 100 O2 Delivery Nasal Cannula Nasal Cannula Nasal Cannula Nasal Cannula O2 Flow Rate 2.0 2.0 2.0 2.0 09/02/18 09/02/18 09/02/18 09/02/18 05:02 06:00 07:00 07:55 Temp 98.2 98.2 Pulse 93 92 94 Resp B/P (MAP) 146/58 (87) 143/92 (109) 143/92 Pulse Ox 100 100 100 O2 Delivery Nasal Cannula Nasal Cannula Nasal Cannula O2 Flow Rate 2.0 2.0 2.0 09/02/18 09/02/18 09/02/18 09/02/18 08:00 08:00 08:10 08:16 Temp 98.2 98.2 98.2 98.2 Pulse 92 100 Resp B/P (MAP) 156/71 (99) 154/72 Pulse Ox 100 100 O2 Delivery Nasal Cannula Nasal Cannula Nasal Cannula O2 Flow Rate 2.0 2.0 2.0 09/02/18 09/02/18 09/02/18 09/02/18 08:30 09:00 09:16 09:40 Pulse 101 Resp B/P (MAP) 142/72 (95) Pulse Ox 100 100 100 100 O2 Delivery Nasal Cannula Nasal Cannula Nasal Cannula Nasal Cannula O2 Flow Rate 2.0 2.0 2.0 2.0 09/02/18 09/02/18 09/02/18 09/02/18 09:59 10:00 12:00 12:25 Temp 98.0 98.0 Pulse 105 105 98 Resp B/P (MAP) 152/66 127/62 (83) 151/73 (99) Pulse Ox 100 100 O2 Delivery Nasal Cannula Nasal Cannula Nasal Cannula O2 Flow Rate 2.0 2.0 2.0 09/02/18 09/02/18 09/02/18 09/02/18 13:00 13:32 14:00 15:00 Pulse 101 99 98 Resp 18 B/P (MAP) 155/74 (101) 140/65 (90) 150/65 (93) Pulse Ox 99 99 99 100 O2 Delivery Nasal Cannula Nasal Cannula Nasal Cannula Nasal Cannula O2 Flow Rate 2.0 2.0 2.0 2.0 09/02/18 15:05 Resp 16 Pulse Ox 99 O2 Delivery Nasal Cannula O2 Flow Rate 2.0 Intake and Output 09/01/18 09/01/18 09/02/18 15:00 23:00 07:00 Intake Total 260 ml 2327.22 ml 1302 ml Output Total 350 ml 1 ml 2 ml Balance -90 ml 2326.22 ml 1300 ml CLEMENCIA PIZANO MD Sep 02, 2018 15:49
[2018-09-02] MEDS: PANTOPRAZOLE IV PUSH 40 MG VIAL. IVP SCH (16:45)
[2018-09-02] MEDS: methylPREDNISolone SOD SUCC PF 40 MG/ML VIAL. IV SCH (21:01)
[2018-09-02] MEDS: ATORVASTATIN CALCIUM 10 MG TABLET. PO SCH (21:02)
[2018-09-02] MEDS: MONTELUKAST SODIUM 10 MG TABLET. PO SCH (21:02)
[2018-09-03] VITALS (25 sets, daily range): BP systolic 124–192; BP diastolic 47–95
[2018-09-03] MEDS: SUCRALFATE 1 GM TABLET. PO SCH ×3 (01:46→21:12)
[2018-09-03] MEDS: IV NORMAL SALINE 1000ML BAG 1,000 ML IV SCH (03:35)
[2018-09-03] MEDS: MEROPENEM 500 MG in IV NORMAL SALINE 50ML 50 ML IV SCH ×3 (05:38→17:25)
[2018-09-03] MEDS: LEVOTHYROXINE 25 MCG TABLET. PO SCH (05:39)
[2018-09-03 05:41] LABS: BASO # 0.1 x10^3/uL (0.0-0.2); BASO % 0 % (0-3); EOS % 0 % (0-3); HEMATOCRIT 27.2 % (36.0-47.0); HEMOGLOBIN 8.8 g/dL (12.0-15.5); LYMPH # 0.2 x10^3/uL (1.0-4.8); LYMPH % 1 % (24-48); MEAN CORPUSCULAR HEMOGLOBIN 28 pg (25-35); MEAN CORPUSCULAR HGB CONC 32 g/dL (31-37); MEAN CORPUSCULAR VOLUME 86 fL (79-100); MONO # 1.6 x10^3/uL (0.0-1.1); MONO % 5 % (0-9); NEUT # 31.6 x10^3uL (1.8-7.7); NEUT % 95 % (31-73); PLATELET COUNT 259 x10^3/uL (140-400); RED BLOOD COUNT 3.16 x10^6/uL (3.50-5.40); RED CELL DISTRIBUTION WIDTH 14.6 % (11.5-14.5); WHITE BLOOD COUNT 33.4 x10^3/uL (4.0-11.0)
[2018-09-03 05:43] LABS: HEMOGLOBIN A1C 5.2 % (4.8-5.6)
[2018-09-03 06:00] LABS: CALCIUM 9.8 mg/dL (8.5-10.1); GFR 66.5; POTASSIUM 3.6 mmol/L (3.5-5.1)
[2018-09-03 06:03] LABS: PROTHROMBIN TIME PATIENT 59.7 SEC (11.7-14.0)
[2018-09-03] MEDS: ONDANSETRON PF 4 MG/2 ML VIAL. IV PRN (06:31)
[2018-09-03] MEDS ORDERED: PHYTONADIONE 10 MG/ML AMPUL. SQ ONE (07:00)
[2018-09-03] MEDS ORDERED: PANTOPRAZOLE IV PUSH 40 MG VIAL. IVP SCH (07:30)
[2018-09-03] MEDS: PANTOPRAZOLE IV PUSH 40 MG VIAL. IVP SCH ×2 (07:43→17:13)
[2018-09-03] MEDS: INSULIN LISPRO 300 UNITS/3 ML INSULN.PEN. SQ SCH ×3 (07:44→17:00)
[2018-09-03] MEDS: BUDESONIDE 0.5 MG/2 ML NEBU. NEB SCH ×2 (07:52→19:36)
[2018-09-03] MEDS: IPRATRPIUM/ALBUTEROL 0.5/2.5MG 3 ML NEBU. IH SCH ×2 (07:52→12:17)
[2018-09-03] MEDS ORDERED: PHYTONADIONE 10 MG/ML ORAL SOLUTION. PO ONE (08:00)
--- NOTE | 2018-09-03 08:57 | PDOC ---
Infectious Disease Note Subjective Subjective Sleeping s/p PRBCs Black stool and INR 6.8 CT A/P w/p contrast- no acute changes No fevers Vital Sign Vital Signs Vital Signs Date Time Temp Pulse Resp B/P (MAP) Pulse Ox O2 Delivery O2 Flow Rate FiO2 09/03/18 08:00 Nasal Cannula 2.0 09/03/18 08:00 99.0 118 22 168/87 (114) 100 99.0 Physical Exam PHYSICAL EXAM GENERAL: Resting quietly. Awakened - looks tired HENT: Oral cavity, pharynx is clear, dry. NECK: Supple LUNGS: Diminished aeration bases, nonlabored HEART: S1, S2. ABDOMEN: Soft, nontender, no guarding or rebound. EXTREMITIES: Without clubbing, cyanosis or gross edema. SKIN: No rash. NEUROLOGIC: NAD PIV ok Labs Lab Laboratory Tests Test 09/02/18 14:20 09/02/18 16:41 09/03/18 05:00 Hemoglobin 8.9 g/dL (12.0-15.5) 8.8 g/dL (12.0-15.5) Glucose (Fingerstick) 141 mg/dL (70-99) White Blood Count 33.4 x10^3/uL (4.0-11.0) Red Blood Count 3.16 x10^6/uL (3.50-5.40) Hematocrit 27.2 % (36.0-47.0) Mean Corpuscular Volume 86 fL (79-100) Mean Corpuscular Hemoglobin 28 pg (25-35) Mean Corpuscular Hemoglobin Concent 32 g/dL (31-37) Red Cell Distribution Width 14.6 % (11.5-14.5) Platelet Count 259 x10^3/uL (140-400) Neutrophils (%) (Auto) 95 % (31-73) Lymphocytes (%) (Auto) 1 % (24-48) Monocytes (%) (Auto) 5 % (0-9) Eosinophils (%) (Auto) 0 % (0-3) Basophils (%) (Auto) 0 % (0-3) Neutrophils # (Auto) 31.6 x10^3uL (1.8-7.7) Lymphocytes # (Auto) 0.2 x10^3/uL (1.0-4.8) Monocytes # (Auto) 1.6 x10^3/uL (0.0-1.1) Eosinophils # (Auto) 0.0 x10^3/uL (0.0-0.7) Basophils # (Auto) 0.1 x10^3/uL (0.0-0.2) Prothrombin Time 59.7 SEC (11.7-14.0) Prothromb Time International Ratio 6.8 (0.8-1.1) Sodium Level 144 mmol/L (136-145) Potassium Level 3.6 mmol/L (3.5-5.1) Chloride Level 110 mmol/L (98-107) Carbon Dioxide Level 23 mmol/L (21-32) Anion Gap 11 (6-14) Blood Urea Nitrogen 15 mg/dL (7-20) Creatinine 1.0 mg/dL (0.6-1.0) Estimated GFR (Cockcroft-Gault) 66.5 Glucose Level 138 mg/dL (70-99) Calcium Level 9.8 mg/dL (8.5-10.1) CT A/P Limited evaluation of solid abdominal and pelvic organs due to lack of IV contrast. 1. Moderate emphysema in the visualized lung bases. 2. No acute findings. Micro BLOOD CULTURE Final GRAM NEGATIVE RODS SEEN IN 2 OF 4 BOTTLES; 2 SETS WERE DRAWN; RESULTS WERE CALLED TO SHAHNAZ CARLOS IN ICU AT 0840; 09/02/18 BY ERIC. THE BLOOD CULTURES HAVE BEEN SENT TO [facility] FOR FURTHER WORKUP. URINE CULTURE RES 1 Preliminary Escherichia coli Objective Assessment Sepsis present on admission, 08/31 with GNR bacteremia E. Coli UTI POA, 08/31 Anemia s/p PRBCs - ? GI bleed - CT neg for Hematoma Leukocytosis, likely reactive in part steroids - some better today Immunosuppression. ANTIBIOTIC ALLERGIES, has tolerated Vantin. NSTEMI with Elevated troponin. Acute kidney injury, better Coagulopathy Nausea Plan Plan of Care Cont Meropenem ? decrease UOP - check Bladder scan Awaiting GNR ID/susceptibilities F/u labs and cults Critically ill D/w nursing Attending Co-Sign Attending Co-Sign The patient was seen and interviewed as well as examined at the bedside. The chart was reviewed. The case was discussed. Agree with the plan of care. BELLE MCINTYRE APRN Sep 03, 2018 08:57 CAROLYN JOHNSON MD Sep 03, 2018 10:44
[2018-09-03] MEDS: ASPIRIN ENTERIC COATED 81 MG TABLET.DR. PO SCH (09:00)
--- NOTE | 2018-09-03 10:10 | PDOC ---
PROGRESS NOTES Subjective Subjective feels week, Objective Objective Vital Signs Date Time Temp Pulse Resp B/P (MAP) Pulse Ox O2 Delivery O2 Flow Rate FiO2 09/03/18 09:00 114 20 159/47 (84) 100 Nasal Cannula 2.0 09/03/18 08:00 99.0 99.0 Intake and Output 09/03/18 07:00 Intake Total 400 ml Output Total 0 ml Balance 400 ml Blood Product IV Normal Saline Flush 400 ml Output Urine Total 0 ml # Voids 2 Physical Exam Abdomen: Soft, No tenderness Heart: Normal S1, Normal S2, Other (tachycardia hr 130) Extremities: No cyanosis, Other (trace LE edema) General: Alert, Oriented X3, Cooperative, No acute distress HEENT: Mucous membr. moist/pink Lungs: Other (basilar crackles with O2 at 2LPM) Neuro: Normal speech Psych/Mental Status: Other (flat affect) Skin: Other (multiple m,inuste healed scabs to UE) Diagnosis Problem List Problems Medical Problems: (1) Hypomagnesemia Status: Acute (2) Hyponatremia Status: Acute (3) Renal insufficiency Status: Acute (4) Sepsis Status: Acute Assessment Assessment Problems Medical Problems: (1) Hypomagnesemia Status: Acute (2) Hyponatremia Status: Acute (3) Renal insufficiency Status: Acute (4) Sepsis Status: Acute FINAL IMPRESSION:possible gi bleed ,black stools 1. Acute sepsis.Gram neg bacteremia. 2. Leukocytosis.wbc 35 3. Urinary tract infection.E Coli 4. Pneumonitis. 5. Interstitial lung disease. 6. Hyponatremia. 7. Acute kidney failure. 8. Diabetes. 9. Chronic immune suppression. 10. Scleroderma. 11. History of deep venous thrombosis, pulmonary embolism, on Coumadin. 12. Anxiety. 13. Depression. 14. Gastroesophageal reflux disease. 15. Multiple allergies. 16. Non-ST elevation myocardial infarction with elevated troponin. 17.Hypotension PLAN:monitor Hb q 6, stable iv protonix CT abd -ve tachycardia and hypertension now blood c/s positive for gram neg rods in 2/4 bottles. BP improved with iv fluids kidney function improved with iv hydration, 1.0 anemia hb 6.7 ,1 unit transfused , today 8.9 coagulopathy,inr6.8 holding coumadin.give vit K ivfluids pt/ot ECHO -good lvf Plan Plan of Care Problems Medical Problems: (1) Hypomagnesemia Status: Acute (2) Hyponatremia Status: Acute (3) Renal insufficiency Status: Acute (4) Sepsis Status: Acute Comment Review of Relevant I have reviewed the following items bill (where applicable) has been applied. Labs Laboratory Tests Test 09/02/18 14:20 09/02/18 16:41 09/03/18 05:00 Hemoglobin 8.9 g/dL (12.0-15.5) 8.8 g/dL (12.0-15.5) Glucose (Fingerstick) 141 mg/dL (70-99) White Blood Count 33.4 x10^3/uL (4.0-11.0) Red Blood Count 3.16 x10^6/uL (3.50-5.40) Hematocrit 27.2 % (36.0-47.0) Mean Corpuscular Volume 86 fL (79-100) Mean Corpuscular Hemoglobin 28 pg (25-35) Mean Corpuscular Hemoglobin Concent 32 g/dL (31-37) Red Cell Distribution Width 14.6 % (11.5-14.5) Platelet Count 259 x10^3/uL (140-400) Neutrophils (%) (Auto) 95 % (31-73) Lymphocytes (%) (Auto) 1 % (24-48) Monocytes (%) (Auto) 5 % (0-9) Eosinophils (%) (Auto) 0 % (0-3) Basophils (%) (Auto) 0 % (0-3) Neutrophils # (Auto) 31.6 x10^3uL (1.8-7.7) Lymphocytes # (Auto) 0.2 x10^3/uL (1.0-4.8) Monocytes # (Auto) 1.6 x10^3/uL (0.0-1.1) Eosinophils # (Auto) 0.0 x10^3/uL (0.0-0.7) Basophils # (Auto) 0.1 x10^3/uL (0.0-0.2) Prothrombin Time 59.7 SEC (11.7-14.0) Prothromb Time International Ratio 6.8 (0.8-1.1) Sodium Level 144 mmol/L (136-145) Potassium Level 3.6 mmol/L (3.5-5.1) Chloride Level 110 mmol/L (98-107) Carbon Dioxide Level 23 mmol/L (21-32) Anion Gap 11 (6-14) Blood Urea Nitrogen 15 mg/dL (7-20) Creatinine 1.0 mg/dL (0.6-1.0) Estimated GFR (Cockcroft-Gault) 66.5 Glucose Level 138 mg/dL (70-99) Calcium Level 9.8 mg/dL (8.5-10.1) Microbiology 09/01/18 Blood Culture - Preliminary, Resulted NO GROWTH AFTER 1 DAY 08/31/18 Urine Culture - Preliminary, Resulted 08/31/18 Urine Culture Result 1 (ARLETTE) - Preliminary, Resulted Medications Current Medications Aspirin (Ecotrin) 81 mg DAILY PO ; Start 09/03/18 at 09:00 Methylprednisolone Sodium Succinate (SOLU-Medrol 40MG VIAL) 40 mg Q12HR IV Last administered on 09/02/18at 21:01; Start 09/02/18 at 21:00 Metoprolol Tartrate (Lopressor Vial) 5 mg PRN Q6HRS PRN IVP HYPERTENSION, SEE COMMENTS; Start 09/03/18 at 09:45 Pantoprazole Sodium (PROTONIX VIAL for IV PUSH) 40 mg BIDAC IVP Last administered on 09/03/18at 07:43; Start 09/02/18 at 16:30 Pantoprazole Sodium (PROTONIX VIAL for IV PUSH) 40 mg DAILYAC IVP ; Start at 07:30; Stop 09/03/18 at 07:30; Status DC Phytonadione (Mephyton Oral Soln) 10 mg 1X ONCE PO ; Start 09/03/18 at 08:00; Stop 09/03/18 at 08:00; Status DC Phytonadione (Mephyton Oral Soln) 10 mg 1X ONCE PO ; Start 09/04/18 at 09:00; Stop 09/04/18 at 09:01 Phytonadione (Vitamin K Ampule) 10 mg 1X ONCE SQ Last administered on at 07:43; Start 09/03/18 at 07:00; Stop 09/03/18 at 07:04; Status DC Vancomycin HCl (Vancomycin Trough Level) 1 each 1X ONCE MC ; Start 09/03/18 at 02:30; Stop 09/03/18 at 02:30; Status DC Vitals/I & O Vital Sign - Last 24 Hours 09/02/18 09/02/18 09/02/18 09/02/18 12:00 12:25 13:00 13:32 Pulse 98 101 Resp 21 21 14 B/P (MAP) 151/73 (99) 155/74 (101) Pulse Ox 100 99 99 O2 Delivery Nasal Cannula Nasal Cannula Nasal Cannula Nasal Cannula O2 Flow Rate 2.0 2.0 2.0 2.0 09/02/18 09/02/18 09/02/18 09/02/18 14:00 15:00 16:00 16:00 Temp 97.9 97.9 Pulse 99 98 104 Resp 18 18 20 B/P (MAP) 140/65 (90) 150/65 (93) 149/69 (95) Pulse Ox 99 100 100 O2 Delivery Nasal Cannula Nasal Cannula Nasal Cannula Nasal Cannula O2 Flow Rate 2.0 2.0 2.0 2.0 09/02/18 09/02/18 09/02/18 09/02/18 16:14 17:00 17:59 18:00 Pulse 109 113 Resp 18 18 20 B/P (MAP) 141/67 (91) 160/73 (102) Pulse Ox 100 100 100 99 O2 Delivery Nasal Cannula Nasal Cannula Nasal Cannula Nasal Cannula O2 Flow Rate 2.0 2.0 2.0 2.0 09/02/18 09/02/18 09/02/18 09/02/18 19:00 19:53 20:00 20:00 Temp 98.3 98.3 Pulse 108 99 Resp 18 B/P (MAP) 151/71 (97) 152/68 (96) Pulse Ox 99 100 99 O2 Delivery Nasal Cannula Nasal Cannula Nasal Cannula Nasal Cannula O2 Flow Rate 2.0 2.0 2.0 2.0 09/02/18 09/02/18 09/02/18 09/02/18 21:00 22:00 23:00 23:03 Pulse 106 105 100 Resp 20 20 20 21 B/P (MAP) 154/72 (99) 161/74 (103) 153/76 (101) Pulse Ox 99 99 99 100 O2 Delivery Nasal Cannula Nasal Cannula Nasal Cannula Nasal Cannula O2 Flow Rate 2.0 2.0 2.0 2.0 09/03/18 09/03/18 09/03/18 09/03/18 00:00 00:00 00:03 01:00 Pulse 108 101 Resp 21 20 28 B/P (MAP) 164/78 (106) 159/82 (107) Pulse Ox 99 100 99 O2 Delivery Nasal Cannula Nasal Cannula Nasal Cannula Nasal Cannula O2 Flow Rate 2.0 2.0 2.0 2.0 09/03/18 09/03/18 09/03/18 09/03/18 02:00 03:00 04:00 04:00 Temp 98.8 98.8 Pulse 107 95 116 Resp 23 22 B/P (MAP) 171/84 (113) 153/67 (95) 161/85 (110) Pulse Ox 99 99 99 O2 Delivery Nasal Cannula Nasal Cannula Nasal Cannula Nasal Cannula O2 Flow Rate 2.0 2.0 2.0 2.0 09/03/18 09/03/18 09/03/18 09/03/18 05:00 06:00 07:00 07:04 Pulse 114 114 112 Resp 17 24 14 B/P (MAP) 169/84 (112) 165/87 (113) 160/87 (111) Pulse Ox 100 100 100 100 O2 Delivery Nasal Cannula Nasal Cannula Nasal Cannula Nasal Cannula O2 Flow Rate 2.0 2.0 2.0 2.0 09/03/18 09/03/18 09/03/18 09/03/18 07:56 08:00 08:00 09:00 Temp 99.0 99.0 Pulse 118 114 Resp 22 20 B/P (MAP) 168/87 (114) 159/47 (84) Pulse Ox 99 100 100 O2 Delivery Nasal Cannula Nasal Cannula Nasal Cannula Nasal Cannula O2 Flow Rate 2.0 2.0 2.0 2.0 Intake and Output 09/02/18 09/02/18 09/03/18 15:00 23:00 07:00 Intake Total 400 ml Output Total 0 ml Balance 400 ml 0 ml Nutrition Consultation Dietary Evaluation: Recommendations by RD: Increase Calorie Intake, Protein supplementation Comments: REC soft diet, ADA/cardiac, will adjust diet order REC glucerna BID if able [place] food preferences and provide snacks as requested Expected Outcomes/Goals: PO intake to meet >75% est needs Malnutrition Findings: Weight Status: Appropriate CHARLES VASQUEZ MD Sep 03, 2018 10:10
[2018-09-03] MEDS: cycloSPORINE 0.05% OPHTH DROPERETTE. OU SCH ×2 (10:12→21:12)
[2018-09-03] MEDS: methylPREDNISolone SOD SUCC PF 40 MG/ML VIAL. IV SCH (10:12)
[2018-09-03] MEDS: POLYVINYL ALCOHOL 1.4% OPHTH SOLUTION 15ML BOTTLE. OU SCH ×4 (10:12→21:12)
[2018-09-03] MEDS: METOPROLOL TARTRATE 5 MG/5 ML VIAL. IVP PRN (10:12)
[2018-09-03] MEDS ORDERED: PROCHLORPERAZINE 10 MG/2 ML VIAL. IV PRN (10:15)
--- NOTE | 2018-09-03 10:45 | NUR ---
Post void residual bladder scan was 747 ml. Placed 16 F 10 ml Prasad catheter. Patient immediately had 700 ml out at time of placement.
[2018-09-03] MEDS: MAGNESIUM OXIDE 400 MG TABLET PO SCH (11:35)
[2018-09-03] MEDS: MYCOPHENOLATE MOFETIL 250 MG CAPSULE. PO SCH ×2 (11:35→21:12)
[2018-09-03] MEDS: CYANOCOBALAMIN (VITAMIN B-12) 1,000 MCG TABLET. PO SCH (11:35)
[2018-09-03] MEDS: ASCORBIC ACID 500 MG TABLET PO SCH (11:36)
[2018-09-03] MEDS: HYDROXYCHLOROQUINE 200 MG TABLET PO SCH ×2 (11:36→21:12)
[2018-09-03] MEDS: oxyCODONE/APAP 5/325 1 TAB TABLET PO PRN (11:36)
[2018-09-03] MEDS: CETIRIZINE HCL 10 MG TABLET. PO SCH (11:36)
[2018-09-03] MEDS: FERROUS SULFATE 325 MG TABLET. PO SCH ×3 (11:37→21:12)
--- NOTE | 2018-09-03 11:59 | PDOC ---
G I PROGRESS NOTE Subjective Says nauseated all night. Staff have not seen any emesis. Still right back pain, but less. Objective No reports of any overt bleeding. Physical Exam Lungs clear. RRR Abdomen soft, not distended. Not particularly tender. Review of Relevant I have reviewed the following items bill (where applicable) has been applied. Labs Laboratory Tests Test 09/01/18 12:36 09/01/18 17:40 09/01/18 18:00 09/02/18 04:30 Glucose (Fingerstick) 124 mg/dL (70-99) 120 mg/dL (70-99) Influenza Type A Antigen Negative (NEGATIVE) Influenza Type B Antigen Negative (NEGATIVE) White Blood Count 39.2 x10^3/uL (4.0-11.0) Red Blood Count 2.40 x10^6/uL (3.50-5.40) Hemoglobin 6.6 g/dL (12.0-15.5) Hematocrit 20.6 % (36.0-47.0) Mean Corpuscular Volume 86 fL (79-100) Mean Corpuscular Hemoglobin 27 pg (25-35) Mean Corpuscular Hemoglobin Concent 32 g/dL (31-37) Red Cell Distribution Width 13.7 % (11.5-14.5) Platelet Count 243 x10^3/uL (140-400) Neutrophils (%) (Auto) 96 % (31-73) Lymphocytes (%) (Auto) 1 % (24-48) Monocytes (%) (Auto) 3 % (0-9) Eosinophils (%) (Auto) 0 % (0-3) Basophils (%) (Auto) 0 % (0-3) Neutrophils # (Auto) 37.8 x10^3uL (1.8-7.7) Lymphocytes # (Auto) 0.2 x10^3/uL (1.0-4.8) Monocytes # (Auto) 1.2 x10^3/uL (0.0-1.1) Eosinophils # (Auto) 0.0 x10^3/uL (0.0-0.7) Basophils # (Auto) 0.0 x10^3/uL (0.0-0.2) Prothrombin Time 47.3 SEC (11.7-14.0) Prothromb Time International Ratio 5.1 (0.8-1.1) Sodium Level 140 mmol/L (136-145) Potassium Level 3.8 mmol/L (3.5-5.1) Chloride Level 106 mmol/L (98-107) Carbon Dioxide Level 23 mmol/L (21-32) Anion Gap 11 (6-14) Blood Urea Nitrogen 17 mg/dL (7-20) Creatinine 1.1 mg/dL (0.6-1.0) Estimated GFR (Cockcroft-Gault) 59.6 Glucose Level 135 mg/dL (70-99) Hemoglobin A1c 5.2 % (4.8-5.6) Calcium Level 8.6 mg/dL (8.5-10.1) Thyroid Stimulating Hormone (TSH) 0.336 uIU/mL (0.358-3.74) Test 09/02/18 08:23 09/02/18 14:20 09/02/18 16:41 09/03/18 05:00 Glucose (Fingerstick) 119 mg/dL (70-99) 141 mg/dL (70-99) Hemoglobin 8.9 g/dL (12.0-15.5) 8.8 g/dL (12.0-15.5) White Blood Count 33.4 x10^3/uL (4.0-11.0) Red Blood Count 3.16 x10^6/uL (3.50-5.40) Hematocrit 27.2 % (36.0-47.0) Mean Corpuscular Volume 86 fL (79-100) Mean Corpuscular Hemoglobin 28 pg (25-35) Mean Corpuscular Hemoglobin Concent 32 g/dL (31-37) Red Cell Distribution Width 14.6 % (11.5-14.5) Platelet Count 259 x10^3/uL (140-400) Neutrophils (%) (Auto) 95 % (31-73) Lymphocytes (%) (Auto) 1 % (24-48) Monocytes (%) (Auto) 5 % (0-9) Eosinophils (%) (Auto) 0 % (0-3) Basophils (%) (Auto) 0 % (0-3) Neutrophils # (Auto) 31.6 x10^3uL (1.8-7.7) Lymphocytes # (Auto) 0.2 x10^3/uL (1.0-4.8) Monocytes # (Auto) 1.6 x10^3/uL (0.0-1.1) Eosinophils # (Auto) 0.0 x10^3/uL (0.0-0.7) Basophils # (Auto) 0.1 x10^3/uL (0.0-0.2) Prothrombin Time 59.7 SEC (11.7-14.0) Prothromb Time International Ratio 6.8 (0.8-1.1) Sodium Level 144 mmol/L (136-145) Potassium Level 3.6 mmol/L (3.5-5.1) Chloride Level 110 mmol/L (98-107) Carbon Dioxide Level 23 mmol/L (21-32) Anion Gap 11 (6-14) Blood Urea Nitrogen 15 mg/dL (7-20) Creatinine 1.0 mg/dL (0.6-1.0) Estimated GFR (Cockcroft-Gault) 66.5 Glucose Level 138 mg/dL (70-99) Calcium Level 9.8 mg/dL (8.5-10.1) Troponin I Quantitative 1.801 ng/mL (0.000-0.055) Test 09/03/18 11:46 Glucose (Fingerstick) 113 mg/dL (70-99) Laboratory Tests Test 09/02/18 14:20 09/02/18 16:41 09/03/18 05:00 09/03/18 11:46 Hemoglobin 8.9 g/dL (12.0-15.5) 8.8 g/dL (12.0-15.5) Glucose (Fingerstick) 141 mg/dL (70-99) 113 mg/dL (70-99) White Blood Count 33.4 x10^3/uL (4.0-11.0) Red Blood Count 3.16 x10^6/uL (3.50-5.40) Hematocrit 27.2 % (36.0-47.0) Mean Corpuscular Volume 86 fL (79-100) Mean Corpuscular Hemoglobin 28 pg (25-35) Mean Corpuscular Hemoglobin Concent 32 g/dL (31-37) Red Cell Distribution Width 14.6 % (11.5-14.5) Platelet Count 259 x10^3/uL (140-400) Neutrophils (%) (Auto) 95 % (31-73) Lymphocytes (%) (Auto) 1 % (24-48) Monocytes (%) (Auto) 5 % (0-9) Eosinophils (%) (Auto) 0 % (0-3) Basophils (%) (Auto) 0 % (0-3) Neutrophils # (Auto) 31.6 x10^3uL (1.8-7.7) Lymphocytes # (Auto) 0.2 x10^3/uL (1.0-4.8) Monocytes # (Auto) 1.6 x10^3/uL (0.0-1.1) Eosinophils # (Auto) 0.0 x10^3/uL (0.0-0.7) Basophils # (Auto) 0.1 x10^3/uL (0.0-0.2) Prothrombin Time 59.7 SEC (11.7-14.0) Prothromb Time International Ratio 6.8 (0.8-1.1) Sodium Level 144 mmol/L (136-145) Potassium Level 3.6 mmol/L (3.5-5.1) Chloride Level 110 mmol/L (98-107) Carbon Dioxide Level 23 mmol/L (21-32) Anion Gap 11 (6-14) Blood Urea Nitrogen 15 mg/dL (7-20) Creatinine 1.0 mg/dL (0.6-1.0) Estimated GFR (Cockcroft-Gault) 66.5 Glucose Level 138 mg/dL (70-99) Calcium Level 9.8 mg/dL (8.5-10.1) Troponin I Quantitative 1.801 ng/mL (0.000-0.055) Microbiology 09/01/18 Blood Culture - Preliminary, Resulted NO GROWTH AFTER 2 DAYS 08/31/18 Urine Culture - Preliminary, Resulted 08/31/18 Urine Culture Result 1 (ARLETTE) - Preliminary, Resulted Hemoglobin stable after transfusion. BUN/CR ratio normal. Vitals/I & O Vital Sign - Last 24 Hours 09/02/18 09/02/18 09/02/18 09/02/18 12:00 12:25 13:00 13:32 Pulse 98 101 Resp 21 21 14 B/P (MAP) 151/73 (99) 155/74 (101) Pulse Ox 100 99 99 O2 Delivery Nasal Cannula Nasal Cannula Nasal Cannula Nasal Cannula O2 Flow Rate 2.0 2.0 2.0 2.0 09/02/18 09/02/18 09/02/18 09/02/18 14:00 15:00 16:00 16:00 Temp 97.9 97.9 Pulse 99 98 104 Resp 18 18 20 B/P (MAP) 140/65 (90) 150/65 (93) 149/69 (95) Pulse Ox 99 100 100 O2 Delivery Nasal Cannula Nasal Cannula Nasal Cannula Nasal Cannula O2 Flow Rate 2.0 2.0 2.0 2.0 09/02/18 09/02/18 09/02/18 09/02/18 16:14 17:00 17:59 18:00 Pulse 109 113 Resp 18 20 B/P (MAP) 141/67 (91) 160/73 (102) Pulse Ox 100 100 100 99 O2 Delivery Nasal Cannula Nasal Cannula Nasal Cannula Nasal Cannula O2 Flow Rate 2.0 2.0 2.0 2.0 09/02/18 09/02/18 09/02/18 09/02/18 19:00 19:53 20:00 20:00 Temp 98.3 98.3 Pulse 108 99 Resp 18 B/P (MAP) 151/71 (97) 152/68 (96) Pulse Ox 99 100 99 O2 Delivery Nasal Cannula Nasal Cannula Nasal Cannula Nasal Cannula O2 Flow Rate 2.0 2.0 2.0 2.0 09/02/18 09/02/18 09/02/18 09/02/18 21:00 22:00 23:00 23:03 Pulse 106 105 100 Resp 20 21 B/P (MAP) 154/72 (99) 161/74 (103) 153/76 (101) Pulse Ox 99 99 99 100 O2 Delivery Nasal Cannula Nasal Cannula Nasal Cannula Nasal Cannula O2 Flow Rate 2.0 2.0 2.0 2.0 09/03/18 09/03/18 09/03/18 09/03/18 00:00 00:00 00:03 01:00 Pulse 108 101 Resp 28 B/P (MAP) 164/78 (106) 159/82 (107) Pulse Ox 99 100 99 O2 Delivery Nasal Cannula Nasal Cannula Nasal Cannula Nasal Cannula O2 Flow Rate 2.0 2.0 2.0 2.0 09/03/18 09/03/18 09/03/18 09/03/18 02:00 03:00 04:00 04:00 Temp 98.8 98.8 Pulse 107 95 116 Resp 22 B/P (MAP) 171/84 (113) 153/67 (95) 161/85 (110) Pulse Ox 99 99 99 O2 Delivery Nasal Cannula Nasal Cannula Nasal Cannula Nasal Cannula O2 Flow Rate 2.0 2.0 2.0 2.0 09/03/18 09/03/18 09/03/18 09/03/18 05:00 06:00 07:00 07:04 Pulse 114 114 112 Resp 17 24 14 B/P (MAP) 169/84 (112) 165/87 (113) 160/87 (111) Pulse Ox 100 100 100 100 O2 Delivery Nasal Cannula Nasal Cannula Nasal Cannula Nasal Cannula O2 Flow Rate 2.0 2.0 2.0 2.0 09/03/18 09/03/18 09/03/18 09/03/18 07:56 08:00 08:00 09:00 Temp 99.0 99.0 Pulse 118 114 Resp 22 20 B/P (MAP) 168/87 (114) 159/47 (84) Pulse Ox 99 100 100 O2 Delivery Nasal Cannula Nasal Cannula Nasal Cannula Nasal Cannula O2 Flow Rate 2.0 2.0 2.0 2.0 09/03/18 09/03/18 09/03/18 10:00 10:12 11:36 Pulse 127 127 Resp 22 16 B/P (MAP) 158/88 (111) 158/88 Pulse Ox 100 100 O2 Delivery Nasal Cannula Nasal Cannula O2 Flow Rate 2.0 2.0 Intake and Output 09/02/18 09/02/18 09/03/18 14:59 22:59 06:59 Intake Total 400 ml Output Total 0 ml Balance 400 ml 0 ml Images No RP hematoma on CT. Problem List Problems Medical Problems: (1) Hypomagnesemia Status: Acute (2) Hyponatremia Status: Acute (3) Renal insufficiency Status: Acute (4) Sepsis Status: Acute Assessment Anemia, stable after transfusion and no overt bleeding noted. Iatrogenic hypoprothrominemia; to get Vitamin K per staff. Plan of Care Note Continue PPI, observe. Agree with some Vit K. REDDY WHITEHEAD MD Sep 03, 2018 11:59
[2018-09-03] MEDS ORDERED: IV NORMAL SALINE 1000ML BAG 1,000 ML IV SCH ×2 (13:45→18:45)
[2018-09-03] MEDS ORDERED: hydrALAZINE 20 MG/ML VIAL. IVP PRN (15:00)
[2018-09-03] MEDS ORDERED: HYDR-2867 PO (15:00)
[2018-09-03] MEDS ORDERED: FUROSEMIDE 40 MG/4 ML VIAL. IVP ONE (16:00)
[2018-09-03] MEDS: METOPROLOL SUCC 24HR ER 50 MG TAB.ER.24H. PO SCH (16:00)
[2018-09-03 16:01] LABS: BASE EXCESS ABG -9 mmol/L (-3-3); HCO3 ABG 15 mmol/L (21-28); PCO2 ABG 29 mmHg (35-46); PO2 ABG 131 mmHg (65-108); SAT O2 ABG 98 % (92-99)
--- NOTE | 2018-09-03 16:19 | RAD ---
PORTABLE CHEST 1V History: Short of breath Comparison: August 31, 2018 Cardiomediastinal silhouette is stable. Pacing type device is again identified. There are diffuse opacities throughout both lungs, greater than what was seen on prior study, compatible with infiltrate/edema. No evidence of pneumothorax. No pleural effusion. IMPRESSION: Patchy opacities in both lungs, could be inflammatory or pneumonia, versus pulmonary edema. Electronically signed by: Anthony Paul MD (09/03/2018 4:16 PM) [facility]
[2018-09-03 16:31] LABS: FIO2 ABG 40
[2018-09-03] MEDS ORDERED: methylPREDNISolone SOD SUCC PF 125 MG/2 ML VIAL. IV ONE (16:45)
--- NOTE | 2018-09-03 17:00 | NUR ---
At 1500 hr went into patients room patient HR was in the 150's she was tachypneicin the 50's, diaphoretic, and anxious. BP was 192/95. Vagal maneuvers and cough wasn't successful at relieving tachycardia. Gave 5mg IV metoprolol and 10mg IV hydralazine. Patients lung sounds were decreased. CXR was ordered and showed pulmonary edema. EKG results were sinus tahycardia. Dr Juarez was called and ordered 40mg IV lasix 1x. ABG's ordered patient placed on Bipap and Pulmonology was consulted. Orders were received. Patient wasn't tolerating Bipap so orders for IV Ativan 0.25 was given. Patient now tolerating Bipap, HR 110, SBP in 140's. Will continue to monitor.
[2018-09-03] MEDS: LISINOPRIL 5 MG TABLET. PO SCH (17:13)
[2018-09-03] MEDS: IPRATROPIUM BROMIDE 0.5 MG/2.5 ML NEBU. NEB SCH ×2 (19:35→23:32)
[2018-09-03] MEDS: MONTELUKAST SODIUM 10 MG TABLET. PO SCH (21:12)
[2018-09-03] MEDS: ATORVASTATIN CALCIUM 10 MG TABLET. PO SCH (21:12)
[2018-09-03] MEDS: hydrALAZINE 10 MG TABLET PO SCH (21:12)
[2018-09-04] VITALS (24 sets, daily range): BP systolic 131–157; BP diastolic 69–90
[2018-09-04] MEDS: MEROPENEM 500 MG in IV NORMAL SALINE 50ML 50 ML IV SCH ×4 (00:04→18:23)
[2018-09-04] MEDS: IPRATROPIUM BROMIDE 0.5 MG/2.5 ML NEBU. NEB SCH ×6 (04:00→23:17)
[2018-09-04 04:55] LABS: BASO % 0 % (0-3); EOS # 0.1 x10^3/uL (0.0-0.7); EOS % 0 % (0-3); HEMATOCRIT 28.6 % (36.0-47.0); HEMOGLOBIN 9.4 g/dL (12.0-15.5); LYMPH # 0.2 x10^3/uL (1.0-4.8); LYMPH % 1 % (24-48); MEAN CORPUSCULAR HEMOGLOBIN 28 pg (25-35); MEAN CORPUSCULAR HGB CONC 33 g/dL (31-37); MEAN CORPUSCULAR VOLUME 85 fL (79-100); MONO # 1.3 x10^3/uL (0.0-1.1); MONO % 5 % (0-9); NEUT # 24.2 x10^3uL (1.8-7.7); NEUT % 94 % (31-73); PLATELET COUNT 247 x10^3/uL (140-400); RED BLOOD COUNT 3.36 x10^6/uL (3.50-5.40); RED CELL DISTRIBUTION WIDTH 14.3 % (11.5-14.5); WHITE BLOOD COUNT 25.8 x10^3/uL (4.0-11.0)
[2018-09-04 05:04] LABS: CREATININE 1.2 mg/dL (0.6-1.0); GFR 53.9; POTASSIUM 3.4 mmol/L (3.5-5.1)
[2018-09-04] MEDS: LEVOTHYROXINE 25 MCG TABLET. PO SCH (05:44)
--- NOTE | 2018-09-04 07:52 | PDOC ---
Infectious Disease Note Subjective Subjective awake on bipap ROS ROS no n/v/d/ sob ++ Vital Sign Vital Signs Vital Signs Date Time Temp Pulse Resp B/P (MAP) Pulse Ox O2 Delivery O2 Flow Rate FiO2 09/04/18 07:00 97.9 128 34 143/82 (102) 100 BiPAP/CPAP 97.9 09/03/18 22:00 4.0 Physical Exam PHYSICAL EXAM GENERAL: . Awakened - looks tired, on bipap HENT: Oral cavity, pharynx is clear, dry. NECK: Supple LUNGS: Diminished aeration bases, nonlabored HEART: S1, S2. ABDOMEN: Soft, nontender, no guarding or rebound. EXTREMITIES: Without clubbing, cyanosis or gross edema. SKIN: No rash. NEUROLOGIC: NAD PIV ok Labs Lab Laboratory Tests Test 09/03/18 11:46 09/03/18 12:30 09/03/18 15:35 09/03/18 17:20 Glucose (Fingerstick) 113 mg/dL (70-99) 150 mg/dL (70-99) Hemoglobin 9.5 g/dL (12.0-15.5) O2 Saturation 98 % (92-99) Arterial Blood pH 7.34 (7.35-7.45) Arterial Blood pCO2 at Patient Temp 29 mmHg (35-46) Arterial Blood pO2 at Patient Temp 131 mmHg (65-108) Arterial Blood HCO3 15 mmol/L (21-28) Arterial Blood Base Excess -9 mmol/L (-3-3) FiO2 40 Test 09/04/18 04:30 White Blood Count 25.8 x10^3/uL (4.0-11.0) Red Blood Count 3.36 x10^6/uL (3.50-5.40) Hemoglobin 9.4 g/dL (12.0-15.5) Hematocrit 28.6 % (36.0-47.0) Mean Corpuscular Volume 85 fL (79-100) Mean Corpuscular Hemoglobin 28 pg (25-35) Mean Corpuscular Hemoglobin Concent 33 g/dL (31-37) Red Cell Distribution Width 14.3 % (11.5-14.5) Platelet Count 247 x10^3/uL (140-400) Neutrophils (%) (Auto) 94 % (31-73) Lymphocytes (%) (Auto) 1 % (24-48) Monocytes (%) (Auto) 5 % (0-9) Eosinophils (%) (Auto) 0 % (0-3) Basophils (%) (Auto) 0 % (0-3) Neutrophils # (Auto) 24.2 x10^3uL (1.8-7.7) Lymphocytes # (Auto) 0.2 x10^3/uL (1.0-4.8) Monocytes # (Auto) 1.3 x10^3/uL (0.0-1.1) Eosinophils # (Auto) 0.1 x10^3/uL (0.0-0.7) Basophils # (Auto) 0.0 x10^3/uL (0.0-0.2) Prothrombin Time 32.0 SEC (11.7-14.0) Prothromb Time International Ratio 3.1 (0.8-1.1) Sodium Level 145 mmol/L (136-145) Potassium Level 3.4 mmol/L (3.5-5.1) Chloride Level 107 mmol/L (98-107) Carbon Dioxide Level 22 mmol/L (21-32) Anion Gap 16 (6-14) Blood Urea Nitrogen 22 mg/dL (7-20) Creatinine 1.2 mg/dL (0.6-1.0) Estimated GFR (Cockcroft-Gault) 53.9 Glucose Level 156 mg/dL (70-99) Calcium Level 10.0 mg/dL (8.5-10.1) Micro BLOOD CULTURE Final GRAM NEGATIVE RODS SEEN IN 2 OF 4 BOTTLES; 2 SETS WERE DRAWN; RESULTS WERE CALLED TO SHAHNAZ CARLOS IN ICU AT 0840; 09/02/18 BY ERIC. THE BLOOD CULTURES HAVE BEEN SENT TO [facility] FOR FURTHER WORKUP. URINE CULTURE Final Final report URINE CULTURE RES 1 Final Escherichia coli Greater than 100,000 colony forming units per mL Cefazolin <=4 ug/mL Cefazolin with an ARLETTE <=16 predicts susceptibility to the oral agents cefaclor, cefdinir, cefpodoxime, cefprozil, cefuroxime, cephalexin, and loracarbef when used for therapy of uncomplicated urinary tract infections due to E. coli, Klebsiella pneumoniae, and Proteus mirabilis. ANTIMICROBIAL SUSCEPTIBILITY Final Comment S = Susceptible; I = Intermediate; R = Resistant P = Positive; N = Negative MICS are expressed in micrograms per mL Antibiotic RSLT#1 RSLT#2 RSLT#3 RSLT#4 Amoxicillin/Clavulanic Acid S =8 Ampicillin R>=32 Cefepime S<=0.12 Ceftriaxone S<=0.25 Cefuroxime S =4 Ciprofloxacin S<=0.25 Ertapenem S<=0.12 Gentamicin S<=1 Imipenem S<=0.25 Levofloxacin S<=0.12 Meropenem S<=0.25 Nitrofurantoin S<=16 Piperacillin/Tazobactam S<=4 Tetracycline S<=1 Tobramycin S<=1 Trimethoprim/Sulfa R>=320 Performed at: [facility] [place] [id number], [place], [place] [id number] Objective Assessment Sepsis present on admission, 08/31 with GNR bacteremia E. Coli UTI POA, 08/31 Anemia s/p PRBCs - ? GI bleed - CT neg for Hematoma Leukocytosis, likely reactive in part steroids - Immunosuppression. ANTIBIOTIC ALLERGIES, has tolerated Vantin. NSTEMI with Elevated troponin. Acute kidney injury, better Coagulopathy Plan Plan of Care Cont Meropenem ? decrease UOP - check Bladder scan,, urinary retention Awaiting GNR ID/susceptibilities F/u labs and cults Critically ill D/w nursing GABY SOLARES MD Sep 04, 2018 07:52
[2018-09-04] MEDS: INSULIN LISPRO 300 UNITS/3 ML INSULN.PEN. SQ SCH ×3 (08:00→18:29)
[2018-09-04] MEDS: BUDESONIDE 0.5 MG/2 ML NEBU. NEB SCH ×2 (08:22→19:48)
[2018-09-04] MEDS: PANTOPRAZOLE IV PUSH 40 MG VIAL. IVP SCH (08:27)
[2018-09-04] MEDS: MAGNESIUM OXIDE 400 MG TABLET PO SCH (08:29)
[2018-09-04] MEDS: CYANOCOBALAMIN (VITAMIN B-12) 1,000 MCG TABLET. PO SCH (08:29)
[2018-09-04] MEDS: hydrALAZINE 10 MG TABLET PO SCH ×2 (08:29→20:51)
[2018-09-04] MEDS: HYDROXYCHLOROQUINE 200 MG TABLET PO SCH ×2 (08:29→20:50)
[2018-09-04] MEDS: FERROUS SULFATE 325 MG TABLET. PO SCH ×3 (08:29→20:49)
[2018-09-04] MEDS: ASPIRIN ENTERIC COATED 81 MG TABLET.DR. PO SCH (08:30)
[2018-09-04] MEDS: LISINOPRIL 5 MG TABLET. PO SCH (08:30)
[2018-09-04] MEDS: CETIRIZINE HCL 10 MG TABLET. PO SCH (08:30)
[2018-09-04] MEDS: SUCRALFATE 1 GM TABLET. PO SCH ×2 (08:30→20:49)
[2018-09-04] MEDS: ASCORBIC ACID 500 MG TABLET PO SCH (08:31)
[2018-09-04] MEDS: cycloSPORINE 0.05% OPHTH DROPERETTE. OU SCH ×2 (08:31→21:37)
[2018-09-04] MEDS: METOPROLOL SUCC 24HR ER 50 MG TAB.ER.24H. PO SCH (08:31)
[2018-09-04] MEDS: methylPREDNISolone SOD SUCC PF 40 MG/ML VIAL. IV SCH ×3 (08:31→20:51)
[2018-09-04] MEDS: POLYVINYL ALCOHOL 1.4% OPHTH SOLUTION 15ML BOTTLE. OU SCH ×4 (08:32→20:49)
[2018-09-04] MEDS ORDERED: methylPREDNISolone SOD SUCC PF 40 MG/ML VIAL. IV SCH (09:00)
[2018-09-04] MEDS ORDERED: PHYTONADIONE 10 MG/ML ORAL SOLUTION. PO ONE (09:00)
[2018-09-04] MEDS: MYCOPHENOLATE MOFETIL 250 MG CAPSULE. PO SCH ×2 (09:05→20:50)
--- NOTE | 2018-09-04 09:42 | PDOC ---
CARDIO Progress Notes Date and Time Date of Service 09/04/18 Time of Evaluation 0940 Subjective Subjective: No Chest Pain, No shortness of breath Vitals Vitals Vital Signs Date Time Temp Pulse Resp B/P (MAP) Pulse Ox O2 Delivery O2 Flow Rate FiO2 09/04/18 09:00 112 26 144/81 (102) 100 Nasal Cannula 4.0 09/04/18 07:00 97.9 97.9 Weight Weight [ ] Input and Output Intake and Output Intake and Output 09/04/18 07:00 Intake Total 590 ml Output Total 3285 ml Balance -2695 ml Intake Oral 490 ml IV Total 100 ml Output Urine Total 3195 ml Oral Regurgitation 90 ml # Bowel Movements 1 Laboratory Labs Laboratory Tests Test 09/03/18 11:46 09/03/18 12:30 09/03/18 15:35 09/03/18 17:20 Glucose (Fingerstick) 113 mg/dL (70-99) 150 mg/dL (70-99) Hemoglobin 9.5 g/dL (12.0-15.5) O2 Saturation 98 % (92-99) Arterial Blood pH 7.34 (7.35-7.45) Arterial Blood pCO2 at Patient Temp 29 mmHg (35-46) Arterial Blood pO2 at Patient Temp 131 mmHg (65-108) Arterial Blood HCO3 15 mmol/L (21-28) Arterial Blood Base Excess -9 mmol/L (-3-3) FiO2 40 Test 09/04/18 04:30 09/04/18 08:38 White Blood Count 25.8 x10^3/uL (4.0-11.0) Red Blood Count 3.36 x10^6/uL (3.50-5.40) Hemoglobin 9.4 g/dL (12.0-15.5) Hematocrit 28.6 % (36.0-47.0) Mean Corpuscular Volume 85 fL (79-100) Mean Corpuscular Hemoglobin 28 pg (25-35) Mean Corpuscular Hemoglobin Concent 33 g/dL (31-37) Red Cell Distribution Width 14.3 % (11.5-14.5) Platelet Count 247 x10^3/uL (140-400) Neutrophils (%) (Auto) 94 % (31-73) Lymphocytes (%) (Auto) 1 % (24-48) Monocytes (%) (Auto) 5 % (0-9) Eosinophils (%) (Auto) 0 % (0-3) Basophils (%) (Auto) 0 % (0-3) Neutrophils # (Auto) 24.2 x10^3uL (1.8-7.7) Lymphocytes # (Auto) 0.2 x10^3/uL (1.0-4.8) Monocytes # (Auto) 1.3 x10^3/uL (0.0-1.1) Eosinophils # (Auto) 0.1 x10^3/uL (0.0-0.7) Basophils # (Auto) 0.0 x10^3/uL (0.0-0.2) Prothrombin Time 32.0 SEC (11.7-14.0) Prothromb Time International Ratio 3.1 (0.8-1.1) Sodium Level 145 mmol/L (136-145) Potassium Level 3.4 mmol/L (3.5-5.1) Chloride Level 107 mmol/L (98-107) Carbon Dioxide Level 22 mmol/L (21-32) Anion Gap 16 (6-14) Blood Urea Nitrogen 22 mg/dL (7-20) Creatinine 1.2 mg/dL (0.6-1.0) Estimated GFR (Cockcroft-Gault) 53.9 Glucose Level 156 mg/dL (70-99) Calcium Level 10.0 mg/dL (8.5-10.1) Glucose (Fingerstick) 143 mg/dL (70-99) Microbiology Micro Microbiology 09/01/18 Blood Culture - Preliminary, Resulted NO GROWTH AFTER 2 DAYS 08/31/18 Urine Culture - Final, Complete 08/31/18 Urine Culture Result 1 (ARLETTE) - Final, Complete 08/31/18 Antimicrobic Susceptibility - Final, Complete Physical Exam HEENT: Neck Supple W Full Motion Chest: Symmetric LUNGS: Clear to Auscultation, Other (diminished bases ) Heart: S1S2, RRR, other (distant heart tones) Abdomen: Soft N/T Extremities: Other (trace bilateral LE edema ) Neurology: alert, follow commands, other (flat affect ) Assessment Assessment 1. Sepsis with Gram neg. bacteremia 2. UTI; continue antibiotic therapy as per ID and PCP 2. NSTEMI; highest 2.6. Possibly type II, demand ischemia in the setting of UTI , sepsis, severe anemia, and AVA. Denies any chest pain. 2-D echo showed LVEF 60 % without any wall motion abnormalities. Consider further ischemic workup. Continue ASA, BB, statin 3. SSS s/p PPM implantation, stable 4. Severe anemia s/p PRBC transfusion. Hgb stable. Continue workup per GI team 5. AVA; improved. 6. Chronic pulmonary fibrosis with hx of PE/MGUS/sjogren and noted current use of cellcept per [facility]; pulmonary consulted 7. DM2: per IM 8. HLP: statins 9. H/o PE/DVT. On chronic anticoagulation therapy. INR subtherapeutic; now 3.1. 10. Hypokalemia; check Mg- replace as warranted AILYN GRANT APRN Sep 04, 2018 09:41
--- NOTE | 2018-09-04 09:53 | PDOC ---
PROGRESS NOTES Subjective Subjective problems with breathing yesterday was placed on BIPAP Objective Objective Vital Signs Date Time Temp Pulse Resp B/P (MAP) Pulse Ox O2 Delivery O2 Flow Rate FiO2 09/04/18 09:00 112 26 144/81 (102) 100 Nasal Cannula 4.0 09/04/18 07:00 97.9 97.9 Intake and Output 09/04/18 07:00 Intake Total 590 ml Output Total 3285 ml Balance -2695 ml Intake Oral 490 ml IV Total 100 ml Output Urine Total 3195 ml Oral Regurgitation 90 ml # Bowel Movements 1 Physical Exam Abdomen: Soft, No tenderness Heart: Normal S1, Normal S2, Other (tachycardia hr 110) Extremities: No cyanosis, Other (trace LE edema) General: Alert, Oriented X3, Cooperative, No acute distress HEENT: Mucous membr. moist/pink Lungs: Other (basilar crackles with O2 at 2LPM) Neuro: Normal speech Psych/Mental Status: Other (flat affect) Skin: Other (multiple m,inuste healed scabs to UE) COMMENT BIPAP yesterday ,now nasal canula Diagnosis Problem List Problems Medical Problems: (1) Hypomagnesemia Status: Acute (2) Hyponatremia Status: Acute (3) Renal insufficiency Status: Acute (4) Sepsis Status: Acute Assessment Assessment Problems Medical Problems: (1) Hypomagnesemia Status: Acute (2) Hyponatremia Status: Acute (3) Renal insufficiency Status: Acute (4) Sepsis Status: Acute FINAL IMPRESSION:CHf /pul edema from fluid overload responded with iv lasix possible gi bleed ,black stools 1. Acute sepsis.Gram neg bacteremia. 2. Leukocytosis.wbc 35 3. Urinary tract infection.E Coli 4. Pneumonitis. 5. Interstitial lung disease. 6. Hyponatremia. 7. Acute kidney failure. 8. Diabetes. 9. Chronic immune suppression. 10. Scleroderma. 11. History of deep venous thrombosis, pulmonary embolism, on Coumadin. 12. Anxiety. 13. Depression. 14. Gastroesophageal reflux disease. 15. Multiple allergies. 16. Non-ST elevation myocardial infarction with elevated troponin. 17.Hypotension PLAN:fluid overload responded with iv lasix placed on BIPAP for ac resp failure. wbc 25 trending down,on steroids monitor Hb q 6, stable iv protonix CT abd -ve tachycardia and hypertension improving blood c/s positive for gram neg rods in 2/4 bottles.iv Zosyn kidney function improved with iv hydration, 1.0 anemia hb 6.7 ,1 unit transfused , today 8.9 coagulopathy,inr 3.6 holding coumadin.,give vit K ivfluids pt/ot ECHO -good lvf Plan Plan of Care Problems Medical Problems: (1) Hypomagnesemia Status: Acute (2) Hyponatremia Status: Acute (3) Renal insufficiency Status: Acute (4) Sepsis Status: Acute Comment Review of Relevant I have reviewed the following items bill (where applicable) has been applied. Labs Laboratory Tests Test 09/03/18 11:46 09/03/18 12:30 09/03/18 15:35 09/03/18 17:20 Glucose (Fingerstick) 113 mg/dL (70-99) 150 mg/dL (70-99) Hemoglobin 9.5 g/dL (12.0-15.5) O2 Saturation 98 % (92-99) Arterial Blood pH 7.34 (7.35-7.45) Arterial Blood pCO2 at Patient Temp 29 mmHg (35-46) Arterial Blood pO2 at Patient Temp 131 mmHg (65-108) Arterial Blood HCO3 15 mmol/L (21-28) Arterial Blood Base Excess -9 mmol/L (-3-3) FiO2 40 Test 09/04/18 04:30 09/04/18 08:38 White Blood Count 25.8 x10^3/uL (4.0-11.0) Red Blood Count 3.36 x10^6/uL (3.50-5.40) Hemoglobin 9.4 g/dL (12.0-15.5) Hematocrit 28.6 % (36.0-47.0) Mean Corpuscular Volume 85 fL (79-100) Mean Corpuscular Hemoglobin 28 pg (25-35) Mean Corpuscular Hemoglobin Concent 33 g/dL (31-37) Red Cell Distribution Width 14.3 % (11.5-14.5) Platelet Count 247 x10^3/uL (140-400) Neutrophils (%) (Auto) 94 % (31-73) Lymphocytes (%) (Auto) 1 % (24-48) Monocytes (%) (Auto) 5 % (0-9) Eosinophils (%) (Auto) 0 % (0-3) Basophils (%) (Auto) 0 % (0-3) Neutrophils # (Auto) 24.2 x10^3uL (1.8-7.7) Lymphocytes # (Auto) 0.2 x10^3/uL (1.0-4.8) Monocytes # (Auto) 1.3 x10^3/uL (0.0-1.1) Eosinophils # (Auto) 0.1 x10^3/uL (0.0-0.7) Basophils # (Auto) 0.0 x10^3/uL (0.0-0.2) Prothrombin Time 32.0 SEC (11.7-14.0) Prothromb Time International Ratio 3.1 (0.8-1.1) Sodium Level 145 mmol/L (136-145) Potassium Level 3.4 mmol/L (3.5-5.1) Chloride Level 107 mmol/L (98-107) Carbon Dioxide Level 22 mmol/L (21-32) Anion Gap 16 (6-14) Blood Urea Nitrogen 22 mg/dL (7-20) Creatinine 1.2 mg/dL (0.6-1.0) Estimated GFR (Cockcroft-Gault) 53.9 Glucose Level 156 mg/dL (70-99) Calcium Level 10.0 mg/dL (8.5-10.1) Glucose (Fingerstick) 143 mg/dL (70-99) Microbiology 09/01/18 Blood Culture - Preliminary, Resulted NO GROWTH AFTER 2 DAYS 08/31/18 Urine Culture - Final, Complete 08/31/18 Urine Culture Result 1 (ARLETTE) - Final, Complete 08/31/18 Antimicrobic Susceptibility - Final, Complete Medications Current Medications Furosemide (Lasix) 40 mg 1X ONCE IVP Last administered on 09/03/18at 15:54; Start 09/03/18 at 16:00; Stop 09/03/18 at 16:01; Status DC Hydralazine HCl (Apresoline Inj) 10 mg PRN Q4HRS PRN IVP ELEVATED BP, SEE COMMENTS; Start 09/03/18 at 15:00 Hydralazine HCl (Apresoline) 10 mg BID PO Last administered on 09/04/18at 08:29 ; Start 09/03/18 at 21:00 Ipratropium [place] (Atrovent) 0.5 mg Q4HRS NEB Last administered on 09/04/18 08:22; Start 09/03/18 at 20:00 Lisinopril (Prinivil) 5 mg DAILY PO Last administered on 09/04/18 08:30; Start 09/03/18 at 16:00 Lorazepam (Ativan) 0.25 mg 1X ONCE IV Last administered on 09/03/18 18:11; Start 09/03/18 at 18:00; Stop 09/03/18 at 18:07; Status DC Lorazepam (Ativan) 0.25 mg 1X ONCE IV Last administered on 09/03/18at 22:40; Start 09/03/18 at 23:00; Stop 09/03/18 at 23:01; Status DC Methylprednisolone Sodium Succinate (SOLU-Medrol 40MG VIAL) 40 mg DAILY IV ; Start 09/04/18 at 09:00; Stop 09/04/18 at 09:00; Status DC Methylprednisolone Sodium Succinate (SOLU-Medrol 40MG VIAL) 40 mg [id number] IV Last administered on 09/04/18 08:31; Start 09/04/18 at 09:00 Methylprednisolone Sodium Succinate (SOLU-Medrol 125MG VIAL) 125 mg 1X ONCE IV Last administered on 09/03/18 17:11; Start 09/03/18 at 16:45; Stop 09/03/18 at 16:48; Status DC Metoprolol Succinate (Toprol Xl) 50 mg DAILY PO Last administered on 09/04/18 08:31; Start 09/03/18 at 16:00 Phytonadione (Mephyton Oral Soln) 10 mg 1X ONCE PO ; Start 09/04/18 at 09:00; Stop 09/04/18 at 09:01; Status DC Prochlorperazine Edisylate (Compazine) 10 mg PRN Q6HRS PRN IV NAUSEA/VOMITING, 2ND CHOICE Last administered on 09/03/18at 13:51; Start 09/03/18 at 10:15 Sodium Chloride 1,000 ml @ 100 mls/hr Q10H IV ; Start 09/03/18 at 18:45; Stop 09/03/18 at 18:45; Status DC Sodium Chloride 1,000 ml @ 200 mls/hr Q5H IV Last administered on 09/03/18at 13 :37; Start 09/03/18 at 13:45; Stop 09/03/18 at 15:03; Status DC Vitals/I & O Vital Sign - Last 24 Hours 09/03/18 09/03/18 09/03/18 09/03/18 10:00 10:12 11:00 11:36 Pulse 127 127 114 Resp 28 16 B/P (MAP) 158/88 (111) 158/88 165/92 (116) Pulse Ox 100 100 100 O2 Delivery Nasal Cannula Nasal Cannula Nasal Cannula O2 Flow Rate 2.0 2.0 2.0 09/03/18 09/03/18 09/03/18 09/03/18 12:00 12:00 13:00 13:23 Temp 98.6 98.6 Pulse 114 110 Resp 18 B/P (MAP) 163/82 (109) 157/83 (107) Pulse Ox 100 100 O2 Delivery Nasal Cannula Nasal Cannula Nasal Cannula Nasal Cannula O2 Flow Rate 2.0 2.0 2.0 2.0 09/03/18 09/03/18 09/03/18 09/03/18 14:21 15:00 15:15 16:00 Pulse 121 122 156 Resp 28 32 52 B/P (MAP) 155/89 (111) 165/81 (109) 192/95 (127) O2 Delivery Nasal Cannula Nasal Cannula Nasal Cannula Bi-pap O2 Flow Rate 2.0 2.0 2.0 09/03/18 09/03/18 09/03/18 09/03/18 16:00 16:00 17:06 17:59 Temp 98.6 98.6 Pulse 126 115 Resp 36 28 B/P (MAP) 154/80 (104) 124/62 (82) Pulse Ox 100 93 100 100 O2 Delivery BiPAP/CPAP BiPAP/CPAP BiPAP/CPAP BiPAP/CPAP 09/03/18 09/03/18 09/03/18 09/03/18 18:00 19:00 19:37 19:38 Pulse 124 124 Resp 32 32 B/P (MAP) 144/86 (105) 125/76 (92) Pulse Ox 100 100 100 100 O2 Delivery BiPAP/CPAP BiPAP/CPAP BiPAP/CPAP BiPAP/CPAP 09/03/18 09/03/18 09/03/18 09/03/18 20:00 20:00 21:00 21:12 Temp 99.0 99.0 Pulse 121 130 123 Resp 33 30 B/P (MAP) 151/84 (106) 147/81 (103) 152/87 Pulse Ox 100 100 O2 Delivery BiPAP/CPAP Bi-pap BiPAP/CPAP 09/03/18 09/03/18 09/03/18 09/04/18 22:00 23:00 23:33 00:00 Temp 98.4 98.4 Pulse 120 109 109 Resp 24 28 29 B/P (MAP) 137/76 (96) 128/70 (89) 137/71 (93) Pulse Ox 100 100 100 100 O2 Delivery Nasal Cannula BiPAP/CPAP BiPAP/CPAP BiPAP/CPAP O2 Flow Rate 4.0 09/04/18 09/04/18 09/04/18 09/04/18 00:00 01:00 02:00 02:30 Pulse 117 112 Resp 30 24 B/P (MAP) 139/76 (97) 141/80 (100) Pulse Ox 100 100 100 O2 Delivery Bi-pap BiPAP/CPAP BiPAP/CPAP BiPAP/CPAP 09/04/18 09/04/18 09/04/18 09/04/18 03:00 04:00 04:00 04:16 Temp 99.2 99.2 Pulse 120 124 Resp 27 32 B/P (MAP) 144/80 (101) 150/85 (106) Pulse Ox 100 100 100 O2 Delivery BiPAP/CPAP BiPAP/CPAP Bi-pap BiPAP/CPAP 09/04/18 09/04/18 09/04/18 09/04/18 05:00 05:32 06:00 07:00 Temp 97.9 97.9 Pulse 113 125 128 Resp 27 32 34 B/P (MAP) 143/75 (97) 149/85 (106) 143/82 (102) Pulse Ox 100 100 100 100 O2 Delivery BiPAP/CPAP BiPAP/CPAP BiPAP/CPAP BiPAP/CPAP 09/04/18 09/04/18 09/04/18 09/04/18 08:00 08:00 08:00 08:23 Pulse 125 Resp 26 B/P (MAP) 150/86 (107) Pulse Ox 100 100 O2 Delivery BiPAP/CPAP Bi-pap BiPAP/CPAP O2 Flow Rate 4.0 4.0 09/04/18 09/04/18 09/04/1809/04/19 08:29 08:30 08:31 09:00 Pulse 129 125 125 112 Resp 26 B/P (MAP) 150/86 150/86 150/86 144/81 (102) Pulse Ox 100 O2 Delivery Nasal Cannula O2 Flow Rate 4.0 Intake and Output 09/03/18 09/03/18 09/04/18 15:00 23:00 07:00 Intake Total 240 ml 300 ml 50 ml Output Total 910 ml 1885 ml 490 ml Balance -670 ml -1585 ml -440 ml Nutrition Consultation Dietary Evaluation: Recommendations by RD: Increase Calorie Intake, Protein supplementation Comments: REC soft diet, ADA/cardiac, will adjust diet order REC glucerna BID if able [place] food preferences and provide snacks as requested Expected Outcomes/Goals: PO intake to meet >75% est needs Malnutrition Findings: Weight Status: Appropriate CHARLES VASQUEZ MD Sep 04, 2018 09:53
[2018-09-04] MEDS ORDERED: POTASSIUM CHLORIDE 20 MEQ TABLET.ER. PO ONE (10:00)
--- NOTE | 2018-09-04 10:07 | PDOC ---
Subjective: Subjective: Denies bleeding and pain. Thinks stooled a little yesterday. Starting tray of clears when I saw. Objective: Objective: RN asks if can cancel C Diff order as not having diarrhea. Also no bleeding. Vital Signs: Vital Signs Date Time Temp Pulse Resp B/P (MAP) Pulse Ox O2 Delivery O2 Flow Rate FiO2 09/04/18 09:00 112 26 144/81 (102) 100 Nasal Cannula 4.0 09/04/18 07:00 97.9 97.9 Labs: Laboratory Tests Test 09/03/18 11:46 09/03/18 12:30 09/03/18 15:35 09/03/18 17:20 Glucose (Fingerstick) 113 mg/dL 150 mg/dL Hemoglobin 9.5 g/dL O2 Saturation 98 % Arterial Blood pH 7.34 Arterial Blood pCO2 at Patient Temp 29 mmHg Arterial Blood pO2 at Patient Temp 131 mmHg Arterial Blood HCO3 15 mmol/L Arterial Blood Base Excess -9 mmol/L FiO2 40 Test 09/04/18 04:30 09/04/18 08:38 White Blood Count 25.8 x10^3/uL Red Blood Count 3.36 x10^6/uL Hemoglobin 9.4 g/dL Hematocrit 28.6 % Mean Corpuscular Volume 85 fL Mean Corpuscular Hemoglobin 28 pg Mean Corpuscular Hemoglobin Concent 33 g/dL Red Cell Distribution Width 14.3 % Platelet Count 247 x10^3/uL Neutrophils (%) (Auto) 94 % Lymphocytes (%) (Auto) 1 % Monocytes (%) (Auto) 5 % Eosinophils (%) (Auto) 0 % Basophils (%) (Auto) 0 % Neutrophils # (Auto) 24.2 x10^3uL Lymphocytes # (Auto) 0.2 x10^3/uL Monocytes # (Auto) 1.3 x10^3/uL Eosinophils # (Auto) 0.1 x10^3/uL Basophils # (Auto) 0.0 x10^3/uL Prothrombin Time 32.0 SEC Prothromb Time International Ratio 3.1 Sodium Level 145 mmol/L Potassium Level 3.4 mmol/L Chloride Level 107 mmol/L Carbon Dioxide Level 22 mmol/L Anion Gap 16 Blood Urea Nitrogen 22 mg/dL Creatinine 1.2 mg/dL Estimated GFR (Cockcroft-Gault) 53.9 Glucose Level 156 mg/dL Calcium Level 10.0 mg/dL Glucose (Fingerstick) 143 mg/dL Imaging: CXR 09/04 pending PE: GEN: NAD LUNGS: NC 4L HEART: tachycardic ABD: S/ND/NT NEURO/PSYCH: A & O 3 A/P: UTI/urosepsis Anemia - Hgb stable, no bleeding Iatrogenic hypoprothrominemia - got vit K -- Now taking clears so will change to PO PPI. Observe for diarrhea and check C Diff if indicated - currently not a concern per staff. MARK MARTINEZ Sep 04, 2018 10:07
[2018-09-04] MEDS ORDERED: IV NORMAL SALINE 500ML BAG 500 ML IV ONE (10:15)
[2018-09-04] MEDS ORDERED: SODIUM BICARB ADULT 8.4% 50 MEQ/50 ML DISP.SYRIN. IV ONE ×2 (10:15→18:30)
--- NOTE | 2018-09-04 10:18 | EKG ---
[facility] [address] [place] [address] Test Date: 2018-09-03 Test Time: 15:34:24 Pat Name: SURY BRAVO Department: Room: 109 1 Gender: F Financial Services Consultant: ROBERT : 1950 Requested By: CLEMENCIA JUAREZ Order Number: [id number] Reading MD: Clemencia Juarez Measurements Intervals [place] Rate: 136 P: -78 AK: 146 QRS: 13 QRSD: 80 T: 88 QT: 252 QTc: 382 Interpretive Statements SINUS TACHYCARDIA QRS(T) CONTOUR ABNORMALITY CONSIDER ANTEROSEPTAL MYOCARDIAL DAMAGE T ABNORMALITY IN HIGH LATERAL LEADS ABNORMAL ECG Electronically Signed On 09-12-2018 10:41:25 [employer] by Clemencia Juarez
--- NOTE | 2018-09-04 10:37 | CONS ---
DATE OF CONSULTATION: ATTENDING PHYSICIAN: Dr. Ward. REASON FOR CONSULTATION: Dyspnea, sepsis. HISTORY OF PRESENT ILLNESS: The patient is a 68-year-old female who has an extensive pulmonary and medical history. She has history of scleroderma. She has history of extensive fibrotic lung disease. She follows at . She is immunosuppressed on medication. She also has a history of DVT and pulmonary embolism in the past for which she is on Coumadin. The patient has history of atrial fibrillation as well. For her scleroderma, she has been treated with CellCept at . She was brought into the hospital with dyspnea and sepsis. She was found to have urinary tract infection with E. coli. She has been currently treated with antibiotics and Infectious Disease has been following: Yesterday, she was noted to be increasingly dyspneic. Her ABGs obtained showed a pH of 7.34, pCO2 of 29, pO2 of 131 with bicarbonate of 15. She was also noticed to have BUN and creatinine worsening to 22 and 1.2. The patient was placed on BiPAP. She was also anemic on admission, her hemoglobin is stabilized now. She was also hypercoagulopathic on admission with an INR as high as 6.8, now it was down to 3.1. She is currently on oxygen. She has been on home oxygen. She is off the BiPAP. I have reviewed the patient's chest x-ray, shows bilateral fibrotic changes. I have also reviewed her CTs from before and she has extensive pulmonary fibrosis. She is not on any pressors. PAST MEDICAL HISTORY: Extensive and includes history of atrial fibrillation and hypertension; history of sick sinus syndrome; history of pacemaker; history of DVT and pulmonary embolism, on Coumadin; history of pulmonary fibrosis which is severe; history of scleroderma, treated with CellCept; history of Parkinson's disease; tremors; GERD; IBS; arthritis; fibromyalgia; monoclonal gammopathy and hypothyroidism. PAST SURGICAL HISTORY: Pacemaker, gallbladder, cholecystectomy. FAMILY HISTORY: Positive for diabetes. SOCIAL HISTORY: No recent alcohol or tobacco use. She is on home oxygen. MEDICATIONS: All reviewed as listed in her MRAD. MEDICATIONS: Also reviewed as listed in her MRAD including steroids, as well as antibiotic, meropenem. REVIEW OF SYSTEMS: Limited, pertinent positives discussed in my history of present illness, otherwise noncontributory. All systems that were negative were reviewed as well. PHYSICAL EXAMINATION: GENERAL: She is somewhat lethargic, but nods yes and no to questions. VITAL SIGNS: Blood pressure is 144/81, pulse ox is 100% on 4 liters. HEENT: Sclerae nonicteric. NECK: Supple. LUNGS: With crackles custodial up. CARDIOVASCULAR: Regular rate. ABDOMEN: Soft. EXTREMITIES: With no pitting edema. LABORATORY DATA: Reviewed. Her INR is 3.1. Her white cell count is 25.8, which is trending down; hemoglobin 9.4 and platelets are 247. ABGs were reviewed as discussed in my history of present illness. BUN and creatinine 22 and 1.2. Troponin 1.8. IMPRESSION: 1. [id number] respiratory failure secondary to multifactorial etiologies including urosepsis and now recently increasing metabolic acidosis, likely from worsening renal failure. 2. Acute metabolic acidosis, likely from renal insufficiency. Her lactic acid on admission was 1.7. I would recommend repeating lactic acid level and give her an amp of bicarbonate. 3. Clinically volume contracted resulting in renal insufficiency/acute kidney injury. Would benefit from fluids. 4. History of extensive pulmonary fibrosis with end-stage honeycombing, on home oxygen chronically. 5. History of scleroderma, on CellCept, immunosuppressed. 6. Marked leukocytosis, present on admission. 7. Escherichia coli urinary tract infection. 8. Coagulopathy, present on admission. 9. History of pulmonary embolism and deep venous thrombosis, on chronic anticoagulation with Coumadin. 10. Anemia with hemoglobin of 6.6, which is now improved. RECOMMENDATIONS: 1. Discussed with RN and RT. We will hold off any further Lasix and give her trial of volume and follow renal function. 2. Obtain lactic acid level. 3. Antibiotics per Infectious Disease. 4. At this point, she does not need BiPAP. 5. We will give few amps of bicarbonate. 6. Monitor hemoglobin closely. 7. Restart Coumadin once INR is in the safe therapeutic range. 8. Monitor white cell count and start tapering steroids. 9. Follow GI recommendations. 10. Follow Cardiology recommendation regarding abnormal troponin. 11. Discussed with RN and RT. Critical care time 39 minutes. WENDIE BLANDON MD DR: DAYSI/lakhwinder JOB#: [id number] / [id number]
--- NOTE | 2018-09-04 11:23 | RAD ---
EXAM: CHEST 1 VIEW History: Pulmonary edema COMPARISON: 09/03/2018 TECHNIQUE: Single portable radiograph of the chest FINDINGS: Low lung volumes and technique accentuates heart size and pulmonary vascularity. There is mild diffuse prominent appearing bilateral interstitial lung markings likely diffuse patchy interstitial infiltrates or edema similar to prior exam. Right-sided pacemaker is identified. IMPRESSION: Diffuse prominent appearing bilateral interstitial lung markings likely infiltrates or edema similar to prior exam. Electronically signed by: Keanu Kauffman MD (09/04/2018 11:20 AM) [id number]
--- NOTE | 2018-09-04 15:14 | NUR ---
SS following for discharge planning. SS reviewed pt chart. Pt is from home and currently requiring oxygen needs. Pt has previously been on services in the past with [facility]. PT/OT ordered but unable to evaluate at this time due to medical stability. SS will continue to follow for pending discharge needs.
[2018-09-04] MEDS ORDERED: METOPROLOL TART IMMED RELEASE 50 MG TABLET. PO ONE (17:45)
[2018-09-04] MEDS ORDERED: PHYTONADIONE 10 MG/ML AMPUL. SQ ONE (18:30)
--- NOTE | 2018-09-04 19:06 | NUR ---
For am assessment, patient on BIPAP, tachypneic,RR 40's, HR 128. Reported to Dr. Washington. Administered 2amps bicarb, 500 bolus NS. At 1830 per , administered 1amp Bicarb, for RR50's, vitamin K, rhino pack placed and ordered 2units FFP for right nare nose bleed and INR 3.1.
[2018-09-04 19:35] LABS: BASE EXCESS ABG 3 mmol/L (-3-3); HCO3 ABG 26 mmol/L (21-28); PCO2 ABG 35 mmHg (35-46); PO2 ABG 78 mmHg (65-108); SAT O2 ABG 95 % (92-99)
[2018-09-04 19:55] LABS: FIO2 ABG 35
[2018-09-04] MEDS: ATORVASTATIN CALCIUM 10 MG TABLET. PO SCH (20:49)
[2018-09-04] MEDS: MONTELUKAST SODIUM 10 MG TABLET. PO SCH (20:50)
--- NOTE | 2018-09-04 22:30 | NUR ---
2225: Paged Dr. Washington regarding no IV access on pt, despite multiple sticks. Unable to give FFP at this time 2229: Dr. Washington paged back and gave orders to not give FFP since pt is no longer actively bleeding from nare. Wants to refer pt care regarding INR to Dr. Ward. Will page Dr. Ward for further orders
--- NOTE | 2018-09-04 22:42 | NUR ---
Spoke with Dr. Chase (prevention specialist for Dr. Ward) regarding no IV access and unable to give IV medications. Orders received for PICC line insertion. Pt gave the okay for PICC line but sister Leydi spoke with b/c pt unable to sign consent due to weakness. Leydi gave the okay for PICC line insertion via telephone.
[2018-09-04 22:47] LABS: HEMATOCRIT 29.2 % (36.0-47.0); HEMOGLOBIN 9.3 g/dL (12.0-15.5); RED BLOOD COUNT 3.36 x10^6/uL (3.50-5.40); RED CELL DISTRIBUTION WIDTH 14.7 % (11.5-14.5)
[2018-09-05] VITALS (24 sets, daily range): BP systolic 131–162; BP diastolic 72–95
[2018-09-05] MEDS: MEROPENEM 500 MG in IV NORMAL SALINE 50ML 50 ML IV SCH ×4 (02:14→17:03)
--- NOTE | 2018-09-05 02:20 | NUR ---
0115: [facility] at bedside to place PICC Line 0220: PICC line insertion completed-- see intervention
[2018-09-05] MEDS: IPRATROPIUM BROMIDE 0.5 MG/2.5 ML NEBU. NEB SCH ×6 (04:05→23:19)
[2018-09-05 04:44] LABS: BASE EXCESS ABG -3 mmol/L (-3-3); FIO2 ABG 40; HCO3 ABG 22 mmol/L (21-28); PCO2 ABG 38 mmHg (35-46); PO2 ABG 58 mmHg (65-108); SAT O2 ABG 87 % (92-99)
--- NOTE | 2018-09-05 05:02 | RAD ---
EXAM: AP View of the chest DATE: 09/05/2018 1:59 AM INDICATION: PICC LINE COMPARISON: 09/04/2018, 09/03/2018 FINDINGS: Portable extremity PICC tip projects over the mid SVC. Cardiac generator pack obscures a portion of the right chest with leads in stable position. Stable cardiomegaly. Bilateral perihilar and lung base parenchymal opacities are again seen, stable. Small bilateral pleural effusions. No pneumothorax. IMPRESSION: Right upper extremity PICC tip projects over the mid SVC. Bilateral parenchymal opacities are grossly stable. Electronically signed by: Arsen Walters MD (09/05/2018 4:59 AM) [id number]
[2018-09-05 05:22] LABS: BASO % 0 % (0-3); EOS # 0.1 x10^3/uL (0.0-0.7); EOS % 0 % (0-3); HEMATOCRIT 27.9 % (36.0-47.0); HEMOGLOBIN 9.1 g/dL (12.0-15.5); LYMPH # 0.2 x10^3/uL (1.0-4.8); LYMPH % 1 % (24-48); MEAN CORPUSCULAR HEMOGLOBIN 28 pg (25-35); MEAN CORPUSCULAR HGB CONC 33 g/dL (31-37); MEAN CORPUSCULAR VOLUME 86 fL (79-100); MONO # 1.5 x10^3/uL (0.0-1.1); MONO % 7 % (0-9); NEUT # 21.5 x10^3uL (1.8-7.7); NEUT % 92 % (31-73); PLATELET COUNT 226 x10^3/uL (140-400); RED BLOOD COUNT 3.25 x10^6/uL (3.50-5.40); RED CELL DISTRIBUTION WIDTH 14.8 % (11.5-14.5); WHITE BLOOD COUNT 23.4 x10^3/uL (4.0-11.0)
[2018-09-05 05:32] LABS: PROTHROMBIN TIME PATIENT 28.4 SEC (11.7-14.0)
[2018-09-05] MEDS: LEVOTHYROXINE 25 MCG TABLET. PO SCH (05:52)
[2018-09-05 06:35] LABS: CALCIUM 10.4 mg/dL (8.5-10.1); CREATININE 1.3 mg/dL (0.6-1.0); GFR 49.1; POTASSIUM 3.9 mmol/L (3.5-5.1)
[2018-09-05] MEDS ORDERED: PANTOPRAZOLE 40 MG TABLET.DR. PO SCH (07:30)
--- NOTE | 2018-09-05 07:47 | PDOC ---
Infectious Disease Note Subjective Subjective awake on V mask ROS ROS no n/v/d/fever is sob Vital Sign Vital Signs Vital Signs Date Time Temp Pulse Resp B/P (MAP) Pulse Ox O2 Delivery O2 Flow Rate FiO2 09/05/18 06:00 117 49 137/86 (103) 92 Venturi Mask 15.0 09/05/18 04:00 97.7 97.7 Physical Exam PHYSICAL EXAM GENERAL: . Awake, with rapid RS, on VM HENT: Oral cavity, pharynx is clear, dry. NECK: Supple LUNGS: Diminished aeration bases, labored HEART: S1, S2. ABDOMEN: Soft, nontender, no guarding or rebound. EXTREMITIES: Without clubbing, cyanosis or gross edema. SKIN: No rash. NEUROLOGIC: NAD PIV ok Labs Lab Laboratory Tests Test 09/04/18 08:38 09/04/18 11:05 09/04/18 12:32 09/04/18 18:27 Glucose (Fingerstick) 143 mg/dL (70-99) 187 mg/dL (70-99) 227 mg/dL (70-99) Lactic Acid Level 1.3 mmol/L (0.4-2.0) Test 09/04/18 19:35 09/04/18 22:30 09/05/18 04:37 09/05/18 05:10 O2 Saturation 95 % (92-99) 87 % (92-99) Arterial Blood pH 7.49 (7.35-7.45) 7.38 (7.35-7.45) Arterial Blood pCO2 at Patient Temp 35 mmHg (35-46) 38 mmHg (35-46) Arterial Blood pO2 at Patient Temp 78 mmHg (65-108) 58 mmHg (65-108) Arterial Blood HCO3 26 mmol/L (21-28) 22 mmol/L (21-28) Arterial Blood Base Excess 3 mmol/L (-3-3) -3 mmol/L (-3-3) FiO2 35 40 White Blood Count 22.0 x10^3/uL (4.0-11.0) 23.4 x10^3/uL (4.0-11.0) Red Blood Count 3.36 x10^6/uL (3.50-5.40) 3.25 x10^6/uL (3.50-5.40) Hemoglobin 9.3 g/dL (12.0-15.5) 9.1 g/dL (12.0-15.5) Hematocrit 29.2 % (36.0-47.0) 27.9 % (36.0-47.0) Mean Corpuscular Volume 87 fL (79-100) 86 fL (79-100) Mean Corpuscular Hemoglobin 28 pg (25-35) 28 pg (25-35) Mean Corpuscular Hemoglobin Concent 32 g/dL (31-37) 33 g/dL (31-37) Red Cell Distribution Width 14.7 % (11.5-14.5) 14.8 % (11.5-14.5) Platelet Count 241 x10^3/uL (140-400) 226 x10^3/uL (140-400) Neutrophils (%) (Auto) 92 % (31-73) Lymphocytes (%) (Auto) 1 % (24-48) Monocytes (%) (Auto) 7 % (0-9) Eosinophils (%) (Auto) 0 % (0-3) Basophils (%) (Auto) 0 % (0-3) Neutrophils # (Auto) 21.5 x10^3uL (1.8-7.7) Lymphocytes # (Auto) 0.2 x10^3/uL (1.0-4.8) Monocytes # (Auto) 1.5 x10^3/uL (0.0-1.1) Eosinophils # (Auto) 0.1 x10^3/uL (0.0-0.7) Basophils # (Auto) 0.0 x10^3/uL (0.0-0.2) Prothrombin Time 28.4 SEC (11.7-14.0) Prothromb Time International Ratio 2.7 (0.8-1.1) Sodium Level 151 mmol/L (136-145) Potassium Level 3.9 mmol/L (3.5-5.1) Chloride Level 110 mmol/L (98-107) Carbon Dioxide Level 27 mmol/L (21-32) Anion Gap 14 (6-14) Blood Urea Nitrogen 34 mg/dL (7-20) Creatinine 1.3 mg/dL (0.6-1.0) Estimated GFR (Cockcroft-Gault) 49.1 Glucose Level 156 mg/dL (70-99) Calcium Level 10.4 mg/dL (8.5-10.1) Micro BLOOD CULTURE Final GRAM NEGATIVE RODS SEEN IN 2 OF 4 BOTTLES; 2 SETS WERE DRAWN; RESULTS WERE CALLED TO SHAHNAZ CARLOS IN ICU AT 0840; 09/02/18 BY ERIC. THE BLOOD CULTURES HAVE BEEN SENT TO [facility] FOR FURTHER WORKUP. URINE CULTURE Final Final report URINE CULTURE RES 1 Final Escherichia coli Greater than 100,000 colony forming units per mL Cefazolin <=4 ug/mL Cefazolin with an ARLETTE <=16 predicts susceptibility to the oral agents cefaclor, cefdinir, cefpodoxime, cefprozil, cefuroxime, cephalexin, and loracarbef when used for therapy of uncomplicated urinary tract infections due to E. coli, Klebsiella pneumoniae, and Proteus mirabilis. ANTIMICROBIAL SUSCEPTIBILITY Final Comment S = Susceptible; I = Intermediate; R = Resistant P = Positive; N = Negative MICS are expressed in micrograms per mL Antibiotic RSLT#1 RSLT#2 RSLT#3 RSLT#4 Amoxicillin/Clavulanic Acid S =8 Ampicillin R>=32 Cefepime S<=0.12 Ceftriaxone S<=0.25 Cefuroxime S =4 Ciprofloxacin S<=0.25 Ertapenem S<=0.12 Gentamicin S<=1 Imipenem S<=0.25 Levofloxacin S<=0.12 Meropenem S<=0.25 Nitrofurantoin S<=16 Piperacillin/Tazobactam S<=4 Tetracycline S<=1 Tobramycin S<=1 Trimethoprim/Sulfa R>=320 Performed at: DA - [facility] [id number] [facility] [address], [place], [place] [id number] Objective Assessment Sepsis present on admission, 08/31 with GNR bacteremia E. Coli UTI POA, 08/31 Anemia s/p PRBCs - ? GI bleed - CT neg for Hematoma Leukocytosis, likely reactive in part steroids - Immunosuppression. Pulmonary fibrosis ANTIBIOTIC ALLERGIES, has tolerated Vantin. NSTEMI with Elevated troponin. Acute kidney injury, better Coagulopathy Respiratory failure possible going in to ARDS Plan Plan of Care Cont Meropenem ? decrease UOP - check Bladder scan,, urinary retention Awaiting GNR ID/susceptibilities F/u labs and cults Critically ill D/w nursing consider DNR/DNI SOLARES,GABY R MD Sep 05, 2018 07:47
[2018-09-05] MEDS: INSULIN LISPRO 300 UNITS/3 ML INSULN.PEN. SQ SCH ×3 (08:00→17:01)
[2018-09-05] MEDS: BUDESONIDE 0.5 MG/2 ML NEBU. NEB SCH ×2 (08:03→19:34)
[2018-09-05] MEDS: FERROUS SULFATE 325 MG TABLET. PO SCH ×3 (09:00→20:56)
[2018-09-05] MEDS: MYCOPHENOLATE MOFETIL 250 MG CAPSULE. PO SCH ×2 (09:00→20:56)
[2018-09-05] MEDS: ASPIRIN ENTERIC COATED 81 MG TABLET.DR. PO SCH (09:00)
[2018-09-05] MEDS: SUCRALFATE 1 GM TABLET. PO SCH ×2 (09:00→20:56)
[2018-09-05] MEDS: ASCORBIC ACID 500 MG TABLET PO SCH (09:00)
[2018-09-05] MEDS: CYANOCOBALAMIN (VITAMIN B-12) 1,000 MCG TABLET. PO SCH (09:00)
[2018-09-05] MEDS: CETIRIZINE HCL 10 MG TABLET. PO SCH (09:00)
--- NOTE | 2018-09-05 09:05 | PDOC ---
PULMONARY PROGRESS NOTES Subjective PT ON BIPAP AWAKE FOLLOW COMMANDS Vitals Vital Signs Date Time Temp Pulse Resp B/P (MAP) Pulse Ox O2 Delivery O2 Flow Rate FiO2 09/05/18 08:52 97 BiPAP/CPAP 09/05/18 08:07 15.0 09/05/18 06:00 117 49 137/86 (103) 09/05/18 04:00 97.7 97.7 General: Alert, Moderate Distress Lungs: Crackles Cardiovascular: S1, S2 Abdomen: Soft Neuro Exam: Alert Extremities: Other (EDEMA) Skin: Warm Labs Laboratory Tests Test 09/03/18 11:46 09/03/18 12:30 09/03/18 15:35 09/03/18 17:20 Glucose (Fingerstick) 113 mg/dL (70-99) 150 mg/dL (70-99) Hemoglobin 9.5 g/dL (12.0-15.5) O2 Saturation 98 % (92-99) Arterial Blood pH 7.34 (7.35-7.45) Arterial Blood pCO2 at Patient Temp 29 mmHg (35-46) Arterial Blood pO2 at Patient Temp 131 mmHg (65-108) Arterial Blood HCO3 15 mmol/L (21-28) Arterial Blood Base Excess -9 mmol/L (-3-3) FiO2 40 Test 09/04/18 04:30 09/04/18 08:38 09/04/18 11:05 09/04/18 12:32 White Blood Count 25.8 x10^3/uL (4.0-11.0) Red Blood Count 3.36 x10^6/uL (3.50-5.40) Hemoglobin 9.4 g/dL (12.0-15.5) Hematocrit 28.6 % (36.0-47.0) Mean Corpuscular Volume 85 fL (79-100) Mean Corpuscular Hemoglobin 28 pg (25-35) Mean Corpuscular Hemoglobin Concent 33 g/dL (31-37) Red Cell Distribution Width 14.3 % (11.5-14.5) Platelet Count 247 x10^3/uL (140-400) Neutrophils (%) (Auto) 94 % (31-73) Lymphocytes (%) (Auto) 1 % (24-48) Monocytes (%) (Auto) 5 % (0-9) Eosinophils (%) (Auto) 0 % (0-3) Basophils (%) (Auto) 0 % (0-3) Neutrophils # (Auto) 24.2 x10^3uL (1.8-7.7) Lymphocytes # (Auto) 0.2 x10^3/uL (1.0-4.8) Monocytes # (Auto) 1.3 x10^3/uL (0.0-1.1) Eosinophils # (Auto) 0.1 x10^3/uL (0.0-0.7) Basophils # (Auto) 0.0 x10^3/uL (0.0-0.2) Prothrombin Time 32.0 SEC (11.7-14.0) Prothromb Time International Ratio 3.1 (0.8-1.1) Sodium Level 145 mmol/L (136-145) Potassium Level 3.4 mmol/L (3.5-5.1) Chloride Level 107 mmol/L (98-107) Carbon Dioxide Level 22 mmol/L (21-32) Anion Gap 16 (6-14) Blood Urea Nitrogen 22 mg/dL (7-20) Creatinine 1.2 mg/dL (0.6-1.0) Estimated GFR (Cockcroft-Gault) 53.9 Glucose Level 156 mg/dL (70-99) Calcium Level 10.0 mg/dL (8.5-10.1) Magnesium Level 2.3 mg/dL (1.8-2.4) Troponin I Quantitative 2.682 ng/mL (0.000-0.055) Glucose (Fingerstick) 143 mg/dL (70-99) 187 mg/dL (70-99) Lactic Acid Level 1.3 mmol/L (0.4-2.0) Test 09/04/18 18:27 09/04/18 19:35 09/04/18 22:30 09/05/18 04:37 Glucose (Fingerstick) 227 mg/dL (70-99) O2 Saturation 95 % (92-99) 87 % (92-99) Arterial Blood pH 7.49 (7.35-7.45) 7.38 (7.35-7.45) Arterial Blood pCO2 at Patient Temp 35 mmHg (35-46) 38 mmHg (35-46) Arterial Blood pO2 at Patient Temp 78 mmHg (65-108) 58 mmHg (65-108) Arterial Blood HCO3 26 mmol/L (21-28) 22 mmol/L (21-28) Arterial Blood Base Excess 3 mmol/L (-3-3) -3 mmol/L (-3-3) FiO2 35 40 White Blood Count 22.0 x10^3/uL (4.0-11.0) Red Blood Count 3.36 x10^6/uL (3.50-5.40) Hemoglobin 9.3 g/dL (12.0-15.5) Hematocrit 29.2 % (36.0-47.0) Mean Corpuscular Volume 87 fL (79-100) Mean Corpuscular Hemoglobin 28 pg (25-35) Mean Corpuscular Hemoglobin Concent 32 g/dL (31-37) Red Cell Distribution Width 14.7 % (11.5-14.5) Platelet Count 241 x10^3/uL (140-400) Test 09/05/18 05:10 White Blood Count 23.4 x10^3/uL (4.0-11.0) Red Blood Count 3.25 x10^6/uL (3.50-5.40) Hemoglobin 9.1 g/dL (12.0-15.5) Hematocrit 27.9 % (36.0-47.0) Mean Corpuscular Volume 86 fL (79-100) Mean Corpuscular Hemoglobin 28 pg (25-35) Mean Corpuscular Hemoglobin Concent 33 g/dL (31-37) Red Cell Distribution Width 14.8 % (11.5-14.5) Platelet Count 226 x10^3/uL (140-400) Neutrophils (%) (Auto) 92 % (31-73) Lymphocytes (%) (Auto) 1 % (24-48) Monocytes (%) (Auto) 7 % (0-9) Eosinophils (%) (Auto) 0 % (0-3) Basophils (%) (Auto) 0 % (0-3) Neutrophils # (Auto) 21.5 x10^3uL (1.8-7.7) Lymphocytes # (Auto) 0.2 x10^3/uL (1.0-4.8) Monocytes # (Auto) 1.5 x10^3/uL (0.0-1.1) Eosinophils # (Auto) 0.1 x10^3/uL (0.0-0.7) Basophils # (Auto) 0.0 x10^3/uL (0.0-0.2) Prothrombin Time 28.4 SEC (11.7-14.0) Prothromb Time International Ratio 2.7 (0.8-1.1) Sodium Level 151 mmol/L (136-145) Potassium Level 3.9 mmol/L (3.5-5.1) Chloride Level 110 mmol/L (98-107) Carbon Dioxide Level 27 mmol/L (21-32) Anion Gap 14 (6-14) Blood Urea Nitrogen 34 mg/dL (7-20) Creatinine 1.3 mg/dL (0.6-1.0) Estimated GFR (Cockcroft-Gault) 49.1 Glucose Level 156 mg/dL (70-99) Calcium Level 10.4 mg/dL (8.5-10.1) Laboratory Tests Test 09/04/18 11:05 09/04/18 12:32 09/04/18 18:27 09/04/18 19:35 Lactic Acid Level 1.3 mmol/L (0.4-2.0) Glucose (Fingerstick) 187 mg/dL (70-99) 227 mg/dL (70-99) O2 Saturation 95 % (92-99) Arterial Blood pH 7.49 (7.35-7.45) Arterial Blood pCO2 at Patient Temp 35 mmHg (35-46) Arterial Blood pO2 at Patient Temp 78 mmHg (65-108) Arterial Blood HCO3 26 mmol/L (21-28) Arterial Blood Base Excess 3 mmol/L (-3-3) FiO2 35 Test 09/04/18 22:30 09/05/18 04:37 09/05/18 05:10 White Blood Count 22.0 x10^3/uL (4.0-11.0) 23.4 x10^3/uL (4.0-11.0) Red Blood Count 3.36 x10^6/uL (3.50-5.40) 3.25 x10^6/uL (3.50-5.40) Hemoglobin 9.3 g/dL (12.0-15.5) 9.1 g/dL (12.0-15.5) Hematocrit 29.2 % (36.0-47.0) 27.9 % (36.0-47.0) Mean Corpuscular Volume 87 fL (79-100) 86 fL (79-100) Mean Corpuscular Hemoglobin 28 pg (25-35) 28 pg (25-35) Mean Corpuscular Hemoglobin Concent 32 g/dL (31-37) 33 g/dL (31-37) Red Cell Distribution Width 14.7 % (11.5-14.5) 14.8 % (11.5-14.5) Platelet Count 241 x10^3/uL (140-400) 226 x10^3/uL (140-400) O2 Saturation 87 % (92-99) Arterial Blood pH 7.38 (7.35-7.45) Arterial Blood pCO2 at Patient Temp 38 mmHg (35-46) Arterial Blood pO2 at Patient Temp 58 mmHg (65-108) Arterial Blood HCO3 22 mmol/L (21-28) Arterial Blood Base Excess -3 mmol/L (-3-3) FiO2 40 Neutrophils (%) (Auto) 92 % (31-73) Lymphocytes (%) (Auto) 1 % (24-48) Monocytes (%) (Auto) 7 % (0-9) Eosinophils (%) (Auto) 0 % (0-3) Basophils (%) (Auto) 0 % (0-3) Neutrophils # (Auto) 21.5 x10^3uL (1.8-7.7) Lymphocytes # (Auto) 0.2 x10^3/uL (1.0-4.8) Monocytes # (Auto) 1.5 x10^3/uL (0.0-1.1) Eosinophils # (Auto) 0.1 x10^3/uL (0.0-0.7) Basophils # (Auto) 0.0 x10^3/uL (0.0-0.2) Prothrombin Time 28.4 SEC (11.7-14.0) Prothromb Time International Ratio 2.7 (0.8-1.1) Sodium Level 151 mmol/L (136-145) Potassium Level 3.9 mmol/L (3.5-5.1) Chloride Level 110 mmol/L (98-107) Carbon Dioxide Level 27 mmol/L (21-32) Anion Gap 14 (6-14) Blood Urea Nitrogen 34 mg/dL (7-20) Creatinine 1.3 mg/dL (0.6-1.0) Estimated GFR (Cockcroft-Gault) 49.1 Glucose Level 156 mg/dL (70-99) Calcium Level 10.4 mg/dL (8.5-10.1) Medications Active Scripts Medications Dose Route/Sig Max Daily Dose Days Date Category Hydralazine Hcl 10 Mg Tablet 1 Tab PO BID 09/03/18 Reported Hydralazine Hcl 10 Mg Tablet 1 Tab PO BID 08/19/17 Rx Cefpodoxime Proxetil 200 Mg Tablet 1 Tab PO BID 08/19/17 Rx Esomeprazole Magnesium 40 Mg Capsule.dr 40 Mg PO DAILY07 08/14/17 Reported Montelukast Sodium Tablet (Montelukast Sodium) 10 Mg Tablet 10 Mg PO HS 08/14/17 Reported Glimepiride 2 Mg Tablet 1 Mg PO DAILY 08/14/17 Reported Magnesium Oxide 400 Mg Tablet 1 Tab PO DAILY 02/20/17 Reported Xopenex Hfa (Levalbuterol Tartrate) 15 Gm Hfa.aer.ad 45 Gm IH 02/20/17 Reported Lortab 5-325 mg Tablet (Hydrocodone/Acetaminophen) 1 Each Tablet 1 Tab PO PRN Q6HRS PRN 02/15/16 Rx Cellcept (Mycophenolate Mofetil) 500 Mg Tablet 750 Mg PO BID 09/09/14 Reported Vitamin B-12 (Cyanocobalamin (Vitamin B-12)) 1,000 Mcg Tablet 1 Tab PO DAILY 09/09/14 Reported Artificial Tears Eye Drops (Dextran 70/Hypromellose) 15 Ml Drops 1 Drop EACHEYE QID 09/09/14 Reported Restasis (Cyclosporine) 1 Each Droperette 1 Drop EACHEYE BID 06/05/14 Reported Aspir 81 (Aspirin) 81 Mg Tablet.dr 1 Tab PO BID 06/05/14 Reported Vitamin C (Ascorbic Acid) 500 Mg Tablet 500 Mg PO DAILY 06/05/14 Reported Ferrous Sulfate 325 Mg Tablet 1 Tab PO TID 06/05/14 Reported Calcium 500 + D Tablet (Calcium Carbonate/Vitamin D3) 1 Each Tablet 1 Each PO DAILY 06/05/14 Reported Carafate (Sucralfate) 1 Gm Tablet 1 Tab PO BID 06/05/14 Reported Duoneb 0.5 Mg-3 Mg/3 Ml Soln (Ipratropium/Albuterol Sulfate) 3 Ml Ampul.neb 3 Ml IH QID 08/30/13 Reported Lyrica (Pregabalin) 100 Mg Capsule 200 Mg PO BID 08/29/13 Reported Plaquenil (Hydroxychloroquine Sulfate) 200 Mg Tablet 200 Mg PO BID 08/29/13 Reported Percocet 5-325 Mg Tablet (Oxycodone/Acetaminophen) 1 Each Tablet 1 Each PO Q4HRS PRN 08/29/13 Reported Toprol Xl (Metoprolol Succinate) 50 Mg Tab.er.24h 50 Mg PO DAILY 08/29/13 Reported Levothyroxine Sodium 50 Mcg Tablet 25 Mcg PO DAILY 08/29/13 Reported Reglan (Metoclopramide Hcl) 10 Mg Tablet 10 Mg PO QIDACHS 08/29/13 Reported Benazepril Hcl 10 Mg Tablet 5 Mg PO DAILY 08/29/13 Reported Lipitor (Atorvastatin Calcium) 10 Mg Tablet 10 Mg PO DAILY 08/29/13 Reported Coumadin (Warfarin Sodium) 5 Mg Tablet 4 Mg PO DAILY 08/29/13 Reported Lasix (Furosemide) 20 Mg Tablet 20 Mg PO BID 08/29/13 Reported Claritin (Loratadine) 10 Mg Capsule 10 Mg PO DAILY 08/29/13 Reported Antivert (Meclizine Hcl) 12.5 Mg Tablet 12.5 Mg PO TID PRN 08/29/13 Reported Asmanex (Mometasone Furoate) 110 Mcg Aer.pow.ba 2 Puff IH BID 08/29/13 Reported Zofran Odt (Ondansetron) 8 Mg Tab.rapdis 8 Mg PO 08/29/13 Reported Impression . IMPRESSION: 1. [id number] respiratory failure secondary to multifactorial etiologie 2. Acute metabolic acidosis 3. SEPSIS 4. History of extensive pulmonary fibrosis REVIEWED CT OF 2017 with end-stage honeycombing, on home oxygen chronically. 5. History of scleroderma, on CellCept, immunosuppressed. 6. LEUKOCYTOSIS 7. Escherichia coli urinary tract infection. 8. Coagulopathy 9. History of pulmonary embolism and deep venous thrombosis, on chronic anticoagulation with Coumadin. 10. ACUTE BLOOD LOSS ANEMIA BLOOD CULTURE Final GRAM NEGATIVE RODS SEEN IN 2 OF 4 BOTTLES; 2 SETS WERE DRAWN; RESULTS WERE CALLED TO SHAHNAZ TERRANCE IN ICU AT 0840; 09/02/18 BY ERIC. THE BLOOD CULTURES HAVE BEEN SENT TO [facility] FOR FURTHER WORKUP. URINE CULTURE Final Final report URINE CULTURE RES 1 Final Escherichia coli Greater than 100,000 colony forming units per mL Cefazolin <=4 ug/mL Cefazolin with an ARLETTE <=16 predicts susceptibility to the oral agents cefaclor, cefdinir, cefpodoxime, cefprozil, cefuroxime, cephalexin, and loracarbef when used for therapy of uncomplicated urinary tract infections due to E. coli, Klebsiella pneumoniae, and Proteus mirabilis. ANTIMICROBIAL SUSCEPTIBILITY Final Comment S = Susceptible; I = Intermediate; R = Resistant P = Positive; N = Negative MICS are expressed in micrograms per mL Antibiotic RSLT#1 RSLT#2 RSLT#3 RSLT#4 Amoxicillin/Clavulanic Acid S =8 Ampicillin R>=32 Cefepime S<=0.12 Ceftriaxone S<=0.25 Cefuroxime S =4 Ciprofloxacin S<=0.25 Ertapenem S<=0.12 Gentamicin S<=1 Imipenem S<=0.25 Levofloxacin S<=0.12 Meropenem S<=0.25 Nitrofurantoin S<=16 Piperacillin/Tazobactam S<=4 Tetracycline S<=1 Tobramycin S<=1 Trimethoprim/Sulfa R>=320 Performed at: DA - [facility] [address], [place], [place] [id number] Plan . ANITI BX PER ID NIV FOR NOW MAY NEED INTUBATION IF SHE DETERIORATES, SPOKE WITH PATENT AND FAMILY SHE WISHES TO BE AGRESSIVE INCLUDING TRACH AND LTAC D/W DR TORO AND PAT PALLIATIVE CARE MONITOR H/H FOLLOW CARD INPUT MAY NEED TPN CCT 35 MULTIPLE FAMILY MEMBERS AT BEDSIDE INCLUDING SON AND SISTER FULL SUPPORT AND FULL CODE FOR NOW REBEKAH ROWLAND MD Sep 05, 2018 09:05
[2018-09-05] MEDS ORDERED: IV DEXTROSE 5 %-0.45 % NACL 500 ML IV ONE ×2 (10:15→10:45)
[2018-09-05] MEDS: IV DEXTROSE 5 %-0.45 % NACL 1,000 ML IV SCH ×2 (10:31→21:14)
[2018-09-05] MEDS: HYDROXYCHLOROQUINE 200 MG TABLET PO SCH ×2 (10:31→20:57)
[2018-09-05] MEDS: hydrALAZINE 10 MG TABLET PO SCH ×2 (10:33→20:56)
[2018-09-05] MEDS: LISINOPRIL 5 MG TABLET. PO SCH (10:33)
[2018-09-05] MEDS: cycloSPORINE 0.05% OPHTH DROPERETTE. OU SCH ×2 (10:34→21:13)
[2018-09-05] MEDS: METOPROLOL SUCC 24HR ER 50 MG TAB.ER.24H. PO SCH (10:34)
[2018-09-05] MEDS: POLYVINYL ALCOHOL 1.4% OPHTH SOLUTION 15ML BOTTLE. OU SCH ×4 (10:35→21:12)
[2018-09-05] MEDS: methylPREDNISolone SOD SUCC PF 40 MG/ML VIAL. IV SCH ×3 (10:35→21:12)
--- NOTE | 2018-09-05 10:35 | PDOC ---
PROGRESS NOTES Subjective Subjective pt does not look well ,on BIPAP Objective Objective Vital Signs Date Time Temp Pulse Resp B/P (MAP) Pulse Ox O2 Delivery O2 Flow Rate FiO2 09/05/18 08:52 97 BiPAP/CPAP 09/05/18 08:07 15.0 09/05/18 06:00 117 49 137/86 (103) 09/05/18 04:00 97.7 97.7 Intake and Output 09/05/18 07:00 Intake Total 1320 ml Output Total 720 ml Balance 600 ml Intake Oral 770 ml IV Total 550 ml Output Urine Total 720 ml Physical Exam Abdomen: Soft, No tenderness Heart: Normal S1, Normal S2, Other (tachycardia hr 110) Extremities: No cyanosis, Other (trace LE edema) General: moderate distress HEENT: Mucous membr. moist/pink Lungs: Other (basilar crackles with O2 at 2LPM) Psych/Mental Status: Other (flat affect) Skin: Other (multiple m,inuste healed scabs to UE) COMMENT BIPAP Diagnosis Problem List Problems Medical Problems: (1) Hypomagnesemia Status: Acute (2) Hyponatremia Status: Acute (3) Renal insufficiency Status: Acute (4) Sepsis Status: Acute Assessment Assessment Problems Medical Problems: (1) Hypomagnesemia Status: Acute (2) Hyponatremia Status: Acute (3) Renal insufficiency Status: Acute (4) Sepsis Status: Acute FINAL IMPRESSION: Ac resp failure on BIPAP CHf /pul edema from fluid overload responded with iv lasix Non Stemi, sherine troponin 2.0 Acute sepsis due to gram neg bacteremia. Acute kidney fialure due to ATN.cr1.3 no urine out put 1. Acute sepsis.Gram neg bacteremia. 2. Leukocytosis.wbc 35 3. Urinary tract infection.E Coli 4. Pneumonitis. 5. Interstitial lung disease. 6. Hyponatremia. 7. Acute kidney failure. 8. Diabetes. 9. Chronic immune suppression. 10. Scleroderma. 11. History of deep venous thrombosis, pulmonary embolism, on Coumadin. 12. Anxiety. 13. Depression. 14. Gastroesophageal reflux disease. 15. Multiple allergies. 16. Non-ST elevation myocardial infarction with elevated troponin. 17.Hypotension PLAN:BIPAP today fluid overload responded with iv lasix sheirne troponin. no urine out put , give fluid bolus. NA 151 hypernatremia, renal consult wbc 25 trending down,on steroids monitor Hb q 6, stable iv protonix CT abd -ve tachycardia and hypertension improving blood c/s positive for gram neg rods in 2/4 bottles.iv Zosyn kidney function improved with iv hydration, 1.0 anemia hb 6.7 ,1 unit transfused , today 8.9 coagulopathy,inr 2.6 holding coumadin.,give vit K spoke with pts son,about pts prognosis. Palliative team consult,for goals of care. pt/ot ECHO -good lvf Plan Plan of Care Problems Medical Problems: (1) Hypomagnesemia Status: Acute (2) Hyponatremia Status: Acute (3) Renal insufficiency Status: Acute (4) Sepsis Status: Acute Comment Review of Relevant I have reviewed the following items bill (where applicable) has been applied. Labs Laboratory Tests Test 09/04/18 11:05 09/04/18 12:32 09/04/18 18:27 09/04/18 19:35 Lactic Acid Level 1.3 mmol/L (0.4-2.0) Glucose (Fingerstick) 187 mg/dL (70-99) 227 mg/dL (70-99) O2 Saturation 95 % (92-99) Arterial Blood pH 7.49 (7.35-7.45) Arterial Blood pCO2 at Patient Temp 35 mmHg (35-46) Arterial Blood pO2 at Patient Temp 78 mmHg (65-108) Arterial Blood HCO3 26 mmol/L (21-28) Arterial Blood Base Excess 3 mmol/L (-3-3) FiO2 35 Test 09/04/18 22:30 09/05/18 04:37 09/05/18 05:10 White Blood Count 22.0 x10^3/uL (4.0-11.0) 23.4 x10^3/uL (4.0-11.0) Red Blood Count 3.36 x10^6/uL (3.50-5.40) 3.25 x10^6/uL (3.50-5.40) Hemoglobin 9.3 g/dL (12.0-15.5) 9.1 g/dL (12.0-15.5) Hematocrit 29.2 % (36.0-47.0) 27.9 % (36.0-47.0) Mean Corpuscular Volume 87 fL (79-100) 86 fL (79-100) Mean Corpuscular Hemoglobin 28 pg (25-35) 28 pg (25-35) Mean Corpuscular Hemoglobin Concent 32 g/dL (31-37) 33 g/dL (31-37) Red Cell Distribution Width 14.7 % (11.5-14.5) 14.8 % (11.5-14.5) Platelet Count 241 x10^3/uL (140-400) 226 x10^3/uL (140-400) O2 Saturation 87 % (92-99) Arterial Blood pH 7.38 (7.35-7.45) Arterial Blood pCO2 at Patient Temp 38 mmHg (35-46) Arterial Blood pO2 at Patient Temp 58 mmHg (65-108) Arterial Blood HCO3 22 mmol/L (21-28) Arterial Blood Base Excess -3 mmol/L (-3-3) FiO2 40 Neutrophils (%) (Auto) 92 % (31-73) Lymphocytes (%) (Auto) 1 % (24-48) Monocytes (%) (Auto) 7 % (0-9) Eosinophils (%) (Auto) 0 % (0-3) Basophils (%) (Auto) 0 % (0-3) Neutrophils # (Auto) 21.5 x10^3uL (1.8-7.7) Lymphocytes # (Auto) 0.2 x10^3/uL (1.0-4.8) Monocytes # (Auto) 1.5 x10^3/uL (0.0-1.1) Eosinophils # (Auto) 0.1 x10^3/uL (0.0-0.7) Basophils # (Auto) 0.0 x10^3/uL (0.0-0.2) Prothrombin Time 28.4 SEC (11.7-14.0) Prothromb Time International Ratio 2.7 (0.8-1.1) Sodium Level 151 mmol/L (136-145) Potassium Level 3.9 mmol/L (3.5-5.1) Chloride Level 110 mmol/L (98-107) Carbon Dioxide Level 27 mmol/L (21-32) Anion Gap 14 (6-14) Blood Urea Nitrogen 34 mg/dL (7-20) Creatinine 1.3 mg/dL (0.6-1.0) Estimated GFR (Cockcroft-Gault) 49.1 Glucose Level 156 mg/dL (70-99) Calcium Level 10.4 mg/dL (8.5-10.1) Microbiology 09/01/18 Blood Culture - Preliminary, Resulted NO GROWTH AFTER 3 DAYS 08/31/18 Urine Culture - Final, Complete 08/31/18 Urine Culture Result 1 (ARLETTE) - Final, Complete 08/31/18 Antimicrobic Susceptibility - Final, Complete Medications Current Medications Dextrose/Sodium Chloride 500 ml @ 0 mls/hr 1X ONCE IV ; Start 09/05/18 at 10:15 ; Stop 09/05/18 at 10:17; Status DC Dextrose/Sodium Chloride 1,000 ml @ 100 mls/hr Q10H IV ; Start 09/05/18 at 10: 15 Metoprolol Tartrate (Lopressor) 50 mg 1X ONCE PO Last administered on at 18:24; Start 09/04/18 at 17:45; Stop 09/04/18 at 17:46; Status DC Pantoprazole Sodium (Protonix) 40 mg DAILYAC PO ; Start 09/05/18 at 07:30 Phytonadione (Vitamin K Ampule) 10 mg 1X ONCE SQ Last administered on at 18:23; Start 09/04/18 at 18:30; Stop 09/04/18 at 18:31; Status DC Sodium Bicarbonate (Sodium Bicarb Adult 8.4% Syr) 50 meq 1X ONCE IV Last administered on 09/04/18at 18:23; Start 09/04/18 at 18:30; Stop 09/04/18 at 18:31 ; Status DC Vitals/I & O Vital Sign - Last 24 Hours 09/04/18 09/04/18 09/04/18 09/04/18 10:59 11:00 12:00 12:00 Temp 98.3 98.3 Pulse 116 124 Resp 26 30 B/P (MAP) 142/82 (102) 140/84 (102) Pulse Ox 100 100 O2 Delivery Nasal Cannula Nasal Cannula Nasal Cannula O2 Flow Rate 4.0 4.0 4.0 09/04/18 09/04/18 09/04/18 09/04/18 12:13 13:00 13:45 14:41 Pulse 124 103 Resp 44 29 B/P (MAP) 142/79 (100) 131/74 (93) Pulse Ox 100 99 95 100 O2 Delivery Nasal Cannula BiPAP/CPAP BiPAP/CPAP O2 Flow Rate 3.0 4.0 09/04/18 09/04/18 09/04/18 09/04/18 15:19 16:00 16:00 16:00 Temp 97.9 97.9 Pulse 117 120 Resp 38 36 B/P (MAP) 138/81 (100) 146/85 (105) Pulse Ox 100 97 O2 Delivery Nasal Cannula Venturi Mask Bi-pap O2 Flow Rate 4.0 09/04/18 09/04/18 09/04/18 09/04/18 16:05 16:30 17:04 17:12 Pulse 119 Resp 50 B/P (MAP) 143/82 (102) Pulse Ox 100 100 97 O2 Delivery BiPAP/CPAP BiPAP/CPAP Venturi Mask O2 Flow Rate 4.0 09/04/18 09/04/18 09/04/18 09/04/18 18:00 18:24 19:00 19:49 Pulse 128 130 122 Resp 57 54 B/P (MAP) 157/88 (111) 157/88 150/87 (108) Pulse Ox 97 97 98 O2 Delivery Venturi Mask Venturi Mask Venturi Mask O2 Flow Rate 9.0 9.0 09/04/18 09/04/18 09/04/18 09/04/18 20:00 20:00 20:51 21:00 Temp 97.7 97.7 Pulse 110 110 112 Resp 48 48 B/P (MAP) 139/82 (101) 147/88 147/88 (107) Pulse Ox 95 93 O2 Delivery Venturi Mask Venturi Mask Venturi Mask O2 Flow Rate 9.0 9.0 9.0 09/04/18 09/04/18 09/04/18 09/04/18 22:00 23:00 23:17 23:59 Pulse 116 116 Resp 45 47 B/P (MAP) 145/80 (101) 157/90 (112) Pulse Ox 93 93 93 O2 Delivery Venturi Mask Venturi Mask Venturi Mask Venturi Mask O2 Flow Rate 9.0 9.0 9.0 12.0 09/05/18 09/05/18 09/05/18 09/05/18 00:00 01:00 02:00 03:00 Temp 97.3 97.3 Pulse 115 116 118 116 Resp 48 52 51 47 B/P (MAP) 156/83 (107) 159/95 (116) 162/85 (110) 142/79 (100) Pulse Ox 91 94 93 91 O2 Delivery Venturi Mask Venturi Mask Venturi Mask Venturi Mask O2 Flow Rate 9.0 12.0 12.0 12.0 09/05/18 09/05/18 09/05/18 09/05/18 04:00 04:00 04:05 05:00 Temp 97.7 97.7 Pulse 116 116 Resp 49 48 B/P (MAP) 142/85 (104) 131/75 (93) Pulse Ox 92 91 92 O2 Delivery Venturi Mask Venturi Mask Venturi Mask Venturi Mask O2 Flow Rate 12.0 12.0 12.0 15.0 09/05/18 09/05/18 09/05/18 06:00 08:07 08:52 Pulse 117 Resp 49 B/P (MAP) 137/86 (103) Pulse Ox 92 92 97 O2 Delivery Venturi Mask Venturi Mask BiPAP/CPAP O2 Flow Rate 15.0 15.0 Intake and Output 09/04/18 09/04/18 09/05/18 15:00 23:00 07:00 Intake Total 1320 ml Output Total 295 ml 310 ml 115 ml Balance 1025 ml -310 ml -115 ml Nutrition Consultation Dietary Evaluation: Recommendations by RD: Increase Calorie Intake, Protein supplementation Comments: REC soft diet, ADA/cardiac, will adjust diet order REC glucerna BID if able [place] food preferences and provide snacks as requested Expected Outcomes/Goals: PO intake to meet >75% est needs Malnutrition Findings: Weight Status: Appropriate CHARLES VASQUEZ MD Sep 05, 2018 10:35
[2018-09-05] MEDS: MAGNESIUM OXIDE 400 MG TABLET PO SCH (10:36)
--- NOTE | 2018-09-05 11:18 | PDOC ---
Objective: Objective: Per RN - son considering changing code status, had nose bleed, not eating on BiPAP. Vital Signs: Vital Signs Date Time Temp Pulse Resp B/P (MAP) Pulse Ox O2 Delivery O2 Flow Rate FiO2 09/05/18 10:34 113 145/76 09/05/18 08:52 97 BiPAP/CPAP 09/05/18 08:07 15.0 09/05/18 07:00 97.2 48 97.2 Labs: Laboratory Tests Test 09/04/18 12:32 09/04/18 18:27 09/04/18 19:35 09/04/18 22:30 Glucose (Fingerstick) 187 mg/dL 227 mg/dL O2 Saturation 95 % Arterial Blood pH 7.49 Arterial Blood pCO2 at Patient Temp 35 mmHg Arterial Blood pO2 at Patient Temp 78 mmHg Arterial Blood HCO3 26 mmol/L Arterial Blood Base Excess 3 mmol/L FiO2 35 White Blood Count 22.0 x10^3/uL Red Blood Count 3.36 x10^6/uL Hemoglobin 9.3 g/dL Hematocrit 29.2 % Mean Corpuscular Volume 87 fL Mean Corpuscular Hemoglobin 28 pg Mean Corpuscular Hemoglobin Concent 32 g/dL Red Cell Distribution Width 14.7 % Platelet Count 241 x10^3/uL Test 09/05/18 04:37 09/05/18 05:10 O2 Saturation 87 % Arterial Blood pH 7.38 Arterial Blood pCO2 at Patient Temp 38 mmHg Arterial Blood pO2 at Patient Temp 58 mmHg Arterial Blood HCO3 22 mmol/L Arterial Blood Base Excess -3 mmol/L FiO2 40 White Blood Count 23.4 x10^3/uL Red Blood Count 3.25 x10^6/uL Hemoglobin 9.1 g/dL Hematocrit 27.9 % Mean Corpuscular Volume 86 fL Mean Corpuscular Hemoglobin 28 pg Mean Corpuscular Hemoglobin Concent 33 g/dL Red Cell Distribution Width 14.8 % Platelet Count 226 x10^3/uL Neutrophils (%) (Auto) 92 % Lymphocytes (%) (Auto) 1 % Monocytes (%) (Auto) 7 % Eosinophils (%) (Auto) 0 % Basophils (%) (Auto) 0 % Neutrophils # (Auto) 21.5 x10^3uL Lymphocytes # (Auto) 0.2 x10^3/uL Monocytes # (Auto) 1.5 x10^3/uL Eosinophils # (Auto) 0.1 x10^3/uL Basophils # (Auto) 0.0 x10^3/uL Prothrombin Time 28.4 SEC Prothromb Time International Ratio 2.7 Sodium Level 151 mmol/L Potassium Level 3.9 mmol/L Chloride Level 110 mmol/L Carbon Dioxide Level 27 mmol/L Anion Gap 14 Blood Urea Nitrogen 34 mg/dL Creatinine 1.3 mg/dL Estimated GFR (Cockcroft-Gault) 49.1 Glucose Level 156 mg/dL Calcium Level 10.4 mg/dL PE: GEN: NAD LUNGS: BiPAP HEART: tachycardic ABD: S/ND/NT NEURO/PSYCH: drowsy A/P: Resp failure, urosepsis Anemia - stable, had epistaxis -- Continue support per GI - back to IV PPI. MARK MARTINEZ Sep 05, 2018 11:18
[2018-09-05] MEDS ORDERED: FUROSEMIDE 100 MG/10 ML VIAL. IVP ONE (12:15)
--- NOTE | 2018-09-05 13:24 | PDOC2 ---
PALLIATIVE CARE Palliative Care Note Palliative Care Consult requested by Dr. Ward to address goals of care. Medical Assessment per medical record; Ac resp failure on BIPAP CHf /pul edema from fluid overload responded with iv lasix Non Stemi, sherine troponin 2.0 Acute sepsis due to gram neg bacteremia. Acute kidney fialure due to ATN.cr1.3 no urine out put Patient remains on BiPap. Follows commands. Dr. Mcclendon here. Spoke with son Noe, sister Leydi and niece. Reviewed medical condition. Reviewed concern of intubation and difficulty getting off ventilatory--- possibly requiring tracheostomy. Patient and family acknowledge understanding and wish to continue full aggressive care including Full Code Will follow and update as necessary. BETH YEPEZ Sep 05, 2018 13:24
--- NOTE | 2018-09-05 13:44 | NUR ---
Code status discussed with patient's son. Dr. Ward consulted pallative care. Dr. Washington talked with son and family. Code status is unchanged. Patient changed to BIPAP. Chest xray unchanged from previous days. Dr. Mas consulted and ordered 60mg lasix IVP.
--- NOTE | 2018-09-05 14:16 | PDOC ---
Renal-Progress Notes Subjective Notes Notes THIS IS A 68 YR OLD WITH WEAKNESS ON ADMIT CHIEF COMPLAINT. SHE IS NOTED TO HAVE AN UTI, AND SEPSIS WITH ACUTE RESP FAILURE. SHE DOES HAVE SEVERE PULMONARY FIBROSIS AND IS ON CHRONIC O2. CURRENTLY NEEDING BIPAP. UNCERTAIN IF THEIR IS AN ACUTE PNEUMONIC PROCESS. PULM IS SEEING PT WELL. SHE HAS NO CKD BUT HAS BEEN HAVING SOME AVA WITH CR ABOUT 1.3 AND ELECTROLYTE IMBALANCE WHILE HERE. OF NOTE THAT SHE HAS A DX OF SCLERODERMA AND IS ON A SMALL DOSE OF AN DHRUV-I. NO NEPHROTOXINS AND NO HEMODYNAMIC INSTABILITY IS NOTED. NO OTHER HX NOTED. RENAL MORPHOLOGY IS WNL ON IMAGING History of Present Illness Hx of present illness ABOVE Vitals Vitals Vital Signs Date Time Temp Pulse Resp B/P (MAP) Pulse Ox O2 Delivery O2 Flow Rate FiO2 09/05/18 13:17 99 BiPAP/CPAP 09/05/18 13:00 116 31 146/79 (101) 09/05/18 12:00 15.0 09/05/18 11:00 98.4 98.4 Weight Weight [ ] I.O. Intake and Output Intake and Output 09/05/18 07:00 Intake Total 1320 ml Output Total 740 ml Balance 580 ml Intake Oral 770 ml IV Total 550 ml Output Urine Total 740 ml Labs Labs Laboratory Tests Test 09/04/18 18:27 09/04/18 19:35 09/04/18 22:30 09/05/18 04:37 Glucose (Fingerstick) 227 mg/dL (70-99) O2 Saturation 95 % (92-99) 87 % (92-99) Arterial Blood pH 7.49 (7.35-7.45) 7.38 (7.35-7.45) Arterial Blood pCO2 at Patient Temp 35 mmHg (35-46) 38 mmHg (35-46) Arterial Blood pO2 at Patient Temp 78 mmHg (65-108) 58 mmHg (65-108) Arterial Blood HCO3 26 mmol/L (21-28) 22 mmol/L (21-28) Arterial Blood Base Excess 3 mmol/L (-3-3) -3 mmol/L (-3-3) FiO2 35 40 White Blood Count 22.0 x10^3/uL (4.0-11.0) Red Blood Count 3.36 x10^6/uL (3.50-5.40) Hemoglobin 9.3 g/dL (12.0-15.5) Hematocrit 29.2 % (36.0-47.0) Mean Corpuscular Volume 87 fL (79-100) Mean Corpuscular Hemoglobin 28 pg (25-35) Mean Corpuscular Hemoglobin Concent 32 g/dL (31-37) Red Cell Distribution Width 14.7 % (11.5-14.5) Platelet Count 241 x10^3/uL (140-400) Test 09/05/18 05:10 09/05/18 12:18 White Blood Count 23.4 x10^3/uL (4.0-11.0) Red Blood Count 3.25 x10^6/uL (3.50-5.40) Hemoglobin 9.1 g/dL (12.0-15.5) Hematocrit 27.9 % (36.0-47.0) Mean Corpuscular Volume 86 fL (79-100) Mean Corpuscular Hemoglobin 28 pg (25-35) Mean Corpuscular Hemoglobin Concent 33 g/dL (31-37) Red Cell Distribution Width 14.8 % (11.5-14.5) Platelet Count 226 x10^3/uL (140-400) Neutrophils (%) (Auto) 92 % (31-73) Lymphocytes (%) (Auto) 1 % (24-48) Monocytes (%) (Auto) 7 % (0-9) Eosinophils (%) (Auto) 0 % (0-3) Basophils (%) (Auto) 0 % (0-3) Neutrophils # (Auto) 21.5 x10^3uL (1.8-7.7) Lymphocytes # (Auto) 0.2 x10^3/uL (1.0-4.8) Monocytes # (Auto) 1.5 x10^3/uL (0.0-1.1) Eosinophils # (Auto) 0.1 x10^3/uL (0.0-0.7) Basophils # (Auto) 0.0 x10^3/uL (0.0-0.2) Prothrombin Time 28.4 SEC (11.7-14.0) Prothromb Time International Ratio 2.7 (0.8-1.1) Sodium Level 151 mmol/L (136-145) Potassium Level 3.9 mmol/L (3.5-5.1) Chloride Level 110 mmol/L (98-107) Carbon Dioxide Level 27 mmol/L (21-32) Anion Gap 14 (6-14) Blood Urea Nitrogen 34 mg/dL (7-20) Creatinine 1.3 mg/dL (0.6-1.0) Estimated GFR (Cockcroft-Gault) 49.1 Glucose Level 156 mg/dL (70-99) Calcium Level 10.4 mg/dL (8.5-10.1) Glucose (Fingerstick) 249 mg/dL (70-99) Micro Micro Microbiology 09/01/18 Blood Culture - Preliminary, Resulted NO GROWTH AFTER 4 DAYS 08/31/18 Urine Culture - Final, Complete 08/31/18 Urine Culture Result 1 (ARLETTE) - Final, Complete 08/31/18 Antimicrobic Susceptibility - Final, Complete X-Ray X-Ray TECHNIQUE: CT abdomen and pelvis without IV contrast with multiplanar reformats. COMPARISON: None FINDINGS: Limited evaluation of solid abdominal and pelvic organs due to lack of IV contrast. Heart is normal in size. No pericardial or pleural effusion. Emphysematous changes in the lung bases. Noncontrast appearance of the liver, spleen, pancreas, adrenals within normal limits. Status post cholecystectomy. No nephrolithiasis or hydronephrosis. Shotty multiple retroperitoneal lymph nodes are seen most likely reactive. No free pelvic fluid or ascites. No bowel obstruction. Normal appendix. Status post hysterectomy. Urinary bladder is distended without radiopaque stone. No pneumoperitoneum. No suspicious bony lesion. IMPRESSION: Limited evaluation of solid abdominal and pelvic organs due to lack of IV contrast. 1. Moderate emphysema in the visualized lung bases. 2. No acute findings. Review of Systems Constitutional: yes: other (UNABLE TO OBTAIN, PT ON BIPAP AND IN MOD DISTRESS) Physical Exam General Appearance: moderate distress Skin: warm, dry Respiratory: decreased breath sounds Heart: S1S2, RRR Abdomen: soft, bowel sounds present Genitourinary: bladder flat Extremities: pulses present, no edema Neurology: alert, other (flat affect, ON BIPAP) Assessment Assessment IMP AVA HYPERVOLEMIA ACUTE RESP FAILURE PULMONARY FIBROSIS CHRONIC IMMUNOSUPPRESSION SCLERODERMA HYPOKALEMIA UTI SEPSIS LEUCOCYTOSIS ANEMIA PLAN HAS BEEN ON IVF'S SUGGEST HYPOTONIC SOLUTIONS ANTIBIOTICS IV LASIX SUPPLEMENTAL O2 AND BIPAP AGREE WITH PULMONARY CONCERNS ON PT POSSIBLY NEEDING INTUBATION CONT DHRUV-I IN VIEW OF SCLERODERMA WOULD CONSIDER STOPPING HER CELLCEPT D/W DR ROWLAND OVERALL POOR PROGNOSIS WILL SIRI HIGHTOWER MD Sep 05, 2018 14:16
[2018-09-05] MEDS ORDERED: SODIUM CHLORIDE 0.65% NASAL SPRAY 45ML BOTTLE. NS PRN (16:00)
--- NOTE | 2018-09-05 16:35 | NUR ---
SS following for discharge planning. SS phoned and faxed referral to [facility], ; [phone], for screening and acceptance decision. [facility] contacted SS and reported that pt meets qualifications and is accepted.
[2018-09-05] MEDS: ATORVASTATIN CALCIUM 10 MG TABLET. PO SCH (20:56)
[2018-09-05] MEDS: MONTELUKAST SODIUM 10 MG TABLET. PO SCH (20:57)
[2018-09-06] VITALS (24 sets, daily range): BP systolic 115–150; BP diastolic 65–85
[2018-09-06] MEDS: MEROPENEM 500 MG in IV NORMAL SALINE 50ML 50 ML IV SCH ×5 (00:33→23:37)
[2018-09-06] MEDS: METOPROLOL TARTRATE 5 MG/5 ML VIAL. IVP PRN (02:57)
[2018-09-06] MEDS: IPRATROPIUM BROMIDE 0.5 MG/2.5 ML NEBU. NEB SCH ×6 (03:00→23:23)
[2018-09-06 05:35] LABS: BASO % 0 % (0-3); EOS % 0 % (0-3); HEMATOCRIT 29.3 % (36.0-47.0); HEMOGLOBIN 9.4 g/dL (12.0-15.5); LYMPH # 0.3 x10^3/uL (1.0-4.8); LYMPH % 2 % (24-48); MEAN CORPUSCULAR HEMOGLOBIN 28 pg (25-35); MEAN CORPUSCULAR HGB CONC 32 g/dL (31-37); MEAN CORPUSCULAR VOLUME 86 fL (79-100); MONO # 0.8 x10^3/uL (0.0-1.1); MONO % 4 % (0-9); NEUT # 19.8 x10^3uL (1.8-7.7); NEUT % 95 % (31-73); PLATELET COUNT 224 x10^3/uL (140-400); RED BLOOD COUNT 3.43 x10^6/uL (3.50-5.40); RED CELL DISTRIBUTION WIDTH 14.4 % (11.5-14.5); WHITE BLOOD COUNT 20.9 x10^3/uL (4.0-11.0)
[2018-09-06 05:44] LABS: PROTHROMBIN TIME PATIENT 21.1 SEC (11.7-14.0)
[2018-09-06 05:54] LABS: CALCIUM 10.8 mg/dL (8.5-10.1); CREATININE 1.2 mg/dL (0.6-1.0); GFR 53.9; POTASSIUM 3.3 mmol/L (3.5-5.1)
[2018-09-06] MEDS: LEVOTHYROXINE 25 MCG TABLET. PO SCH (06:00)
[2018-09-06] MEDS: IV DEXTROSE 5 %-0.45 % NACL 1,000 ML IV SCH (06:32)
[2018-09-06] MEDS: BUDESONIDE 0.5 MG/2 ML NEBU. NEB SCH ×2 (07:17→20:12)
--- NOTE | 2018-09-06 07:20 | PDOC ---
Infectious Disease Note Subjective Subjective awake on bipap ROS ROS no n/v/d/fever Vital Sign Vital Signs Vital Signs Date Time Temp Pulse Resp B/P (MAP) Pulse Ox O2 Delivery O2 Flow Rate FiO2 09/06/18 06:00 124 39 115/79 (91) 98 BiPAP/CPAP 09/06/18 04:00 15.0 09/06/18 04:00 98.9 98.9 Physical Exam PHYSICAL EXAM GENERAL: . Awake, with rapid RS, on BiPAP HENT: Oral cavity, pharynx is clear, dry. NECK: Supple LUNGS: Diminished aeration bases, labored HEART: S1, S2. ABDOMEN: Soft, nontender, no guarding or rebound. EXTREMITIES: Without clubbing, cyanosis or gross edema. SKIN: No rash. NEUROLOGIC: lethargic, moves all ext PIV ok Labs Lab Laboratory Tests Test 09/05/18 12:18 09/05/18 16:58 09/06/18 05:15 09/06/18 05:50 Glucose (Fingerstick) 249 mg/dL (70-99) 234 mg/dL (70-99) White Blood Count 20.9 x10^3/uL (4.0-11.0) Red Blood Count 3.43 x10^6/uL (3.50-5.40) Hemoglobin 9.4 g/dL (12.0-15.5) Hematocrit 29.3 % (36.0-47.0) Mean Corpuscular Volume 86 fL (79-100) Mean Corpuscular Hemoglobin 28 pg (25-35) Mean Corpuscular Hemoglobin Concent 32 g/dL (31-37) Red Cell Distribution Width 14.4 % (11.5-14.5) Platelet Count 224 x10^3/uL (140-400) Neutrophils (%) (Auto) 95 % (31-73) Lymphocytes (%) (Auto) 2 % (24-48) Monocytes (%) (Auto) 4 % (0-9) Eosinophils (%) (Auto) 0 % (0-3) Basophils (%) (Auto) 0 % (0-3) Neutrophils # (Auto) 19.8 x10^3uL (1.8-7.7) Lymphocytes # (Auto) 0.3 x10^3/uL (1.0-4.8) Monocytes # (Auto) 0.8 x10^3/uL (0.0-1.1) Eosinophils # (Auto) 0.0 x10^3/uL (0.0-0.7) Basophils # (Auto) 0.0 x10^3/uL (0.0-0.2) Prothrombin Time 21.1 SEC (11.7-14.0) Prothromb Time International Ratio 1.9 (0.8-1.1) Sodium Level 149 mmol/L (136-145) Potassium Level 3.3 mmol/L (3.5-5.1) Chloride Level 109 mmol/L (98-107) Carbon Dioxide Level 32 mmol/L (21-32) Anion Gap 8 (6-14) Blood Urea Nitrogen 48 mg/dL (7-20) Creatinine 1.2 mg/dL (0.6-1.0) Estimated GFR (Cockcroft-Gault) 53.9 Glucose Level 290 mg/dL (70-99) Calcium Level 10.8 mg/dL (8.5-10.1) Arterial Blood pH 7.57 (7.35-7.45) Arterial Blood pCO2 at Patient Temp 32 mmHg (35-46) Arterial Blood pO2 at Patient Temp 88 mmHg (65-108) Arterial Blood HCO3 29 mmol/L (21-28) Arterial Blood Base Excess 7 mmol/L (-3-3) FiO2 40 Micro BLOOD CULTURE Final GRAM NEGATIVE RODS SEEN IN 2 OF 4 BOTTLES; 2 SETS WERE DRAWN; RESULTS WERE CALLED TO SHAHNAZ CARLOS IN ICU AT 0840; 09/02/18 BY ERIC. THE BLOOD CULTURES HAVE BEEN SENT TO [facility] FOR FURTHER WORKUP. URINE CULTURE Final Final report URINE CULTURE RES 1 Final Escherichia coli Greater than 100,000 colony forming units per mL Cefazolin <=4 ug/mL Cefazolin with an ARLETTE <=16 predicts susceptibility to the oral agents cefaclor, cefdinir, cefpodoxime, cefprozil, cefuroxime, cephalexin, and loracarbef when used for therapy of uncomplicated urinary tract infections due to E. coli, Klebsiella pneumoniae, and Proteus mirabilis. ANTIMICROBIAL SUSCEPTIBILITY Final Comment S = Susceptible; I = Intermediate; R = Resistant P = Positive; N = Negative MICS are expressed in micrograms per mL Antibiotic RSLT#1 RSLT#2 RSLT#3 RSLT#4 Amoxicillin/Clavulanic Acid S =8 Ampicillin R>=32 Cefepime S<=0.12 Ceftriaxone S<=0.25 Cefuroxime S =4 Ciprofloxacin S<=0.25 Ertapenem S<=0.12 Gentamicin S<=1 Imipenem S<=0.25 Levofloxacin S<=0.12 Meropenem S<=0.25 Nitrofurantoin S<=16 Piperacillin/Tazobactam S<=4 Tetracycline S<=1 Tobramycin S<=1 Trimethoprim/Sulfa R>=320 Performed at: [facility] - [facility] [id number], [place], [place] [id number] Objective Assessment Sepsis present on admission, 08/31 with GNR bacteremia E. Coli UTI POA, 08/31 Anemia s/p PRBCs - ? GI bleed - CT neg for Hematoma Leukocytosis, likely reactive in part steroids - Immunosuppression. Pulmonary fibrosis ANTIBIOTIC ALLERGIES, has tolerated Vantin. NSTEMI with Elevated troponin. Acute kidney injury, better Coagulopathy Respiratory failure possible going in to ARDS Plan Plan of Care Cont Meropenem ? decrease UOP - check Bladder scan,, urinary retention Awaiting GNR ID/susceptibilities F/u labs and cults Critically ill D/w nursing prognosis poor GABY SOLARES MD Sep 06, 2018 07:20
[2018-09-06] MEDS: ASPIRIN ENTERIC COATED 81 MG TABLET.DR. PO SCH (07:44)
[2018-09-06] MEDS: HYDROXYCHLOROQUINE 200 MG TABLET PO SCH ×2 (07:44→19:38)
[2018-09-06] MEDS: FERROUS SULFATE 325 MG TABLET. PO SCH ×3 (07:44→19:38)
[2018-09-06] MEDS: SUCRALFATE 1 GM TABLET. PO SCH ×2 (07:44→19:38)
[2018-09-06] MEDS: hydrALAZINE 10 MG TABLET PO SCH ×2 (07:44→19:37)
[2018-09-06] MEDS: MAGNESIUM OXIDE 400 MG TABLET PO SCH (07:44)
[2018-09-06] MEDS: MYCOPHENOLATE MOFETIL 250 MG CAPSULE. PO SCH (07:44)
[2018-09-06] MEDS: LISINOPRIL 5 MG TABLET. PO SCH (07:45)
[2018-09-06] MEDS: METOPROLOL SUCC 24HR ER 50 MG TAB.ER.24H. PO SCH (07:45)
[2018-09-06] MEDS: CYANOCOBALAMIN (VITAMIN B-12) 1,000 MCG TABLET. PO SCH (07:45)
[2018-09-06] MEDS: CETIRIZINE HCL 10 MG TABLET. PO SCH (07:45)
[2018-09-06] MEDS: ASCORBIC ACID 500 MG TABLET PO SCH (07:45)
[2018-09-06] MEDS: methylPREDNISolone SOD SUCC PF 40 MG/ML VIAL. IV SCH ×3 (08:41→21:04)
[2018-09-06] MEDS: PANTOPRAZOLE IV PUSH 40 MG VIAL. IVP SCH (08:42)
[2018-09-06] MEDS: INSULIN LISPRO 300 UNITS/3 ML INSULN.PEN. SQ SCH ×3 (08:44→18:15)
[2018-09-06] MEDS: POLYVINYL ALCOHOL 1.4% OPHTH SOLUTION 15ML BOTTLE. OU SCH ×4 (08:47→21:04)
--- NOTE | 2018-09-06 08:54 | RAD ---
CHEST AP ONLY Clinical indications: Shortness of air COMPARISON: 09/05/2018. Findings: There has been mild improvement in the bilateral lung infiltrates or pulmonary edema. Small bilateral pleural effusions are unchanged. No pneumothorax is seen. The heart size, pulmonary vasculature, mediastinum and both jose armando are stable. Impression: Mild improvement in bilateral lung infiltrates or pulmonary edema. Electronically signed by: Cal Brito MD (09/06/2018 8:50 AM) [facility]
[2018-09-06] MEDS: cycloSPORINE 0.05% OPHTH DROPERETTE. OU SCH ×2 (09:12→21:04)
--- NOTE | 2018-09-06 09:34 | NUR ---
SS following up with discharge planning. SS spoke with pt's son, Isael, via phone and discussed discharge planning and referral to [facility]. Pt's son reported that family wanted full aggressive care for pt and were in agreement with transfer to [facility] when stable for transfer. Physician and palliative care RN notified.
--- NOTE | 2018-09-06 09:38 | PDOC ---
Objective: Objective: Per RN - dark/black smear of stool overnight. Essentially NPO w/ resp and mental status. Reviewed PC note - family wishes to continue aggressive care. Vital Signs: Vital Signs Date Time Temp Pulse Resp B/P (MAP) Pulse Ox O2 Delivery O2 Flow Rate FiO2 09/06/18 09:08 99 BiPAP/CPAP 09/06/18 06:00 124 39 115/79 (91) 09/06/18 04:00 15.0 09/06/18 04:00 98.9 98.9 Labs: Laboratory Tests Test 09/05/18 12:18 09/05/18 16:58 09/06/18 05:15 09/06/18 05:50 Glucose (Fingerstick) 249 mg/dL 234 mg/dL White Blood Count 20.9 x10^3/uL Red Blood Count 3.43 x10^6/uL Hemoglobin 9.4 g/dL Hematocrit 29.3 % Mean Corpuscular Volume 86 fL Mean Corpuscular Hemoglobin 28 pg Mean Corpuscular Hemoglobin Concent 32 g/dL Red Cell Distribution Width 14.4 % Platelet Count 224 x10^3/uL Neutrophils (%) (Auto) 95 % Lymphocytes (%) (Auto) 2 % Monocytes (%) (Auto) 4 % Eosinophils (%) (Auto) 0 % Basophils (%) (Auto) 0 % Neutrophils # (Auto) 19.8 x10^3uL Lymphocytes # (Auto) 0.3 x10^3/uL Monocytes # (Auto) 0.8 x10^3/uL Eosinophils # (Auto) 0.0 x10^3/uL Basophils # (Auto) 0.0 x10^3/uL Prothrombin Time 21.1 SEC Prothromb Time International Ratio 1.9 Sodium Level 149 mmol/L Potassium Level 3.3 mmol/L Chloride Level 109 mmol/L Carbon Dioxide Level 32 mmol/L Anion Gap 8 Blood Urea Nitrogen 48 mg/dL Creatinine 1.2 mg/dL Estimated GFR (Cockcroft-Gault) 53.9 Glucose Level 290 mg/dL Calcium Level 10.8 mg/dL O2 Saturation Pending Arterial Blood pH 7.57 Arterial Blood pCO2 at Patient Temp 32 mmHg Arterial Blood pO2 at Patient Temp 88 mmHg Arterial Blood HCO3 29 mmol/L Arterial Blood Base Excess 7 mmol/L FiO2 40 Test 09/06/18 08:21 Glucose (Fingerstick) 228 mg/dL BLOOD CULTURE LC Final Final report BLD CULT RESULT 1 Final Escherichia coli Imaging: CXR 09/06 Impression: Mild improvement in bilateral lung infiltrates or pulmonary edema. PE: GEN: ill LUNGS: BiPAP HEART: tachycardic ABD: soft, BS+ NEURO/PSYCH: does not open eyes when I say her name A/P: Resp failure Sepsis/UTI - E coli Anemia - stable, recent epistaxis, had a smear of "black" stool -- Continue IV PPI. MARK MARTINEZ Sep 06, 2018 09:38
--- NOTE | 2018-09-06 09:45 | PDOC ---
PULMONARY PROGRESS NOTES Subjective PT ON BIPAP ABG NOTED Vitals Vital Signs Date Time Temp Pulse Resp B/P (MAP) Pulse Ox O2 Delivery O2 Flow Rate FiO2 09/06/18 09:08 99 BiPAP/CPAP 09/06/18 06:00 124 39 115/79 (91) 09/06/18 04:00 15.0 09/06/18 04:00 98.9 98.9 General: Alert, Moderate Distress Lungs: Crackles Cardiovascular: S1, S2 Abdomen: Soft Neuro Exam: Alert Extremities: Other (EDEMA) Skin: Warm Labs Laboratory Tests Test 09/04/18 11:05 09/04/18 12:32 09/04/18 18:27 09/04/18 19:35 Lactic Acid Level 1.3 mmol/L (0.4-2.0) Glucose (Fingerstick) 187 mg/dL (70-99) 227 mg/dL (70-99) O2 Saturation 95 % (92-99) Arterial Blood pH 7.49 (7.35-7.45) Arterial Blood pCO2 at Patient Temp 35 mmHg (35-46) Arterial Blood pO2 at Patient Temp 78 mmHg (65-108) Arterial Blood HCO3 26 mmol/L (21-28) Arterial Blood Base Excess 3 mmol/L (-3-3) FiO2 35 Test 09/04/18 22:30 09/05/18 04:37 09/05/18 05:10 09/05/18 12:18 White Blood Count 22.0 x10^3/uL (4.0-11.0) 23.4 x10^3/uL (4.0-11.0) Red Blood Count 3.36 x10^6/uL (3.50-5.40) 3.25 x10^6/uL (3.50-5.40) Hemoglobin 9.3 g/dL (12.0-15.5) 9.1 g/dL (12.0-15.5) Hematocrit 29.2 % (36.0-47.0) 27.9 % (36.0-47.0) Mean Corpuscular Volume 87 fL (79-100) 86 fL (79-100) Mean Corpuscular Hemoglobin 28 pg (25-35) 28 pg (25-35) Mean Corpuscular Hemoglobin Concent 32 g/dL (31-37) 33 g/dL (31-37) Red Cell Distribution Width 14.7 % (11.5-14.5) 14.8 % (11.5-14.5) Platelet Count 241 x10^3/uL (140-400) 226 x10^3/uL (140-400) O2 Saturation 87 % (92-99) Arterial Blood pH 7.38 (7.35-7.45) Arterial Blood pCO2 at Patient Temp 38 mmHg (35-46) Arterial Blood pO2 at Patient Temp 58 mmHg (65-108) Arterial Blood HCO3 22 mmol/L (21-28) Arterial Blood Base Excess -3 mmol/L (-3-3) FiO2 40 Neutrophils (%) (Auto) 92 % (31-73) Lymphocytes (%) (Auto) 1 % (24-48) Monocytes (%) (Auto) 7 % (0-9) Eosinophils (%) (Auto) 0 % (0-3) Basophils (%) (Auto) 0 % (0-3) Neutrophils # (Auto) 21.5 x10^3uL (1.8-7.7) Lymphocytes # (Auto) 0.2 x10^3/uL (1.0-4.8) Monocytes # (Auto) 1.5 x10^3/uL (0.0-1.1) Eosinophils # (Auto) 0.1 x10^3/uL (0.0-0.7) Basophils # (Auto) 0.0 x10^3/uL (0.0-0.2) Prothrombin Time 28.4 SEC (11.7-14.0) Prothromb Time International Ratio 2.7 (0.8-1.1) Sodium Level 151 mmol/L (136-145) Potassium Level 3.9 mmol/L (3.5-5.1) Chloride Level 110 mmol/L (98-107) Carbon Dioxide Level 27 mmol/L (21-32) Anion Gap 14 (6-14) Blood Urea Nitrogen 34 mg/dL (7-20) Creatinine 1.3 mg/dL (0.6-1.0) Estimated GFR (Cockcroft-Gault) 49.1 Glucose Level 156 mg/dL (70-99) Calcium Level 10.4 mg/dL (8.5-10.1) Glucose (Fingerstick) 249 mg/dL (70-99) Test 09/05/18 16:58 09/06/18 05:15 09/06/18 05:50 09/06/18 08:21 Glucose (Fingerstick) 234 mg/dL (70-99) 228 mg/dL (70-99) White Blood Count 20.9 x10^3/uL (4.0-11.0) Red Blood Count 3.43 x10^6/uL (3.50-5.40) Hemoglobin 9.4 g/dL (12.0-15.5) Hematocrit 29.3 % (36.0-47.0) Mean Corpuscular Volume 86 fL (79-100) Mean Corpuscular Hemoglobin 28 pg (25-35) Mean Corpuscular Hemoglobin Concent 32 g/dL (31-37) Red Cell Distribution Width 14.4 % (11.5-14.5) Platelet Count 224 x10^3/uL (140-400) Neutrophils (%) (Auto) 95 % (31-73) Lymphocytes (%) (Auto) 2 % (24-48) Monocytes (%) (Auto) 4 % (0-9) Eosinophils (%) (Auto) 0 % (0-3) Basophils (%) (Auto) 0 % (0-3) Neutrophils # (Auto) 19.8 x10^3uL (1.8-7.7) Lymphocytes # (Auto) 0.3 x10^3/uL (1.0-4.8) Monocytes # (Auto) 0.8 x10^3/uL (0.0-1.1) Eosinophils # (Auto) 0.0 x10^3/uL (0.0-0.7) Basophils # (Auto) 0.0 x10^3/uL (0.0-0.2) Prothrombin Time 21.1 SEC (11.7-14.0) Prothromb Time International Ratio 1.9 (0.8-1.1) Sodium Level 149 mmol/L (136-145) Potassium Level 3.3 mmol/L (3.5-5.1) Chloride Level 109 mmol/L (98-107) Carbon Dioxide Level 32 mmol/L (21-32) Anion Gap 8 (6-14) Blood Urea Nitrogen 48 mg/dL (7-20) Creatinine 1.2 mg/dL (0.6-1.0) Estimated GFR (Cockcroft-Gault) 53.9 Glucose Level 290 mg/dL (70-99) Calcium Level 10.8 mg/dL (8.5-10.1) Arterial Blood pH 7.57 (7.35-7.45) Arterial Blood pCO2 at Patient Temp 32 mmHg (35-46) Arterial Blood pO2 at Patient Temp 88 mmHg (65-108) Arterial Blood HCO3 29 mmol/L (21-28) Arterial Blood Base Excess 7 mmol/L (-3-3) FiO2 40 Laboratory Tests Test 09/05/18 12:18 09/05/18 16:58 09/06/18 05:15 09/06/18 05:50 Glucose (Fingerstick) 249 mg/dL (70-99) 234 mg/dL (70-99) White Blood Count 20.9 x10^3/uL (4.0-11.0) Red Blood Count 3.43 x10^6/uL (3.50-5.40) Hemoglobin 9.4 g/dL (12.0-15.5) Hematocrit 29.3 % (36.0-47.0) Mean Corpuscular Volume 86 fL (79-100) Mean Corpuscular Hemoglobin 28 pg (25-35) Mean Corpuscular Hemoglobin Concent 32 g/dL (31-37) Red Cell Distribution Width 14.4 % (11.5-14.5) Platelet Count 224 x10^3/uL (140-400) Neutrophils (%) (Auto) 95 % (31-73) Lymphocytes (%) (Auto) 2 % (24-48) Monocytes (%) (Auto) 4 % (0-9) Eosinophils (%) (Auto) 0 % (0-3) Basophils (%) (Auto) 0 % (0-3) Neutrophils # (Auto) 19.8 x10^3uL (1.8-7.7) Lymphocytes # (Auto) 0.3 x10^3/uL (1.0-4.8) Monocytes # (Auto) 0.8 x10^3/uL (0.0-1.1) Eosinophils # (Auto) 0.0 x10^3/uL (0.0-0.7) Basophils # (Auto) 0.0 x10^3/uL (0.0-0.2) Prothrombin Time 21.1 SEC (11.7-14.0) Prothromb Time International Ratio 1.9 (0.8-1.1) Sodium Level 149 mmol/L (136-145) Potassium Level 3.3 mmol/L (3.5-5.1) Chloride Level 109 mmol/L (98-107) Carbon Dioxide Level 32 mmol/L (21-32) Anion Gap 8 (6-14) Blood Urea Nitrogen 48 mg/dL (7-20) Creatinine 1.2 mg/dL (0.6-1.0) Estimated GFR (Cockcroft-Gault) 53.9 Glucose Level 290 mg/dL (70-99) Calcium Level 10.8 mg/dL (8.5-10.1) Arterial Blood pH 7.57 (7.35-7.45) Arterial Blood pCO2 at Patient Temp 32 mmHg (35-46) Arterial Blood pO2 at Patient Temp 88 mmHg (65-108) Arterial Blood HCO3 29 mmol/L (21-28) Arterial Blood Base Excess 7 mmol/L (-3-3) FiO2 40 Test 09/06/18 08:21 Glucose (Fingerstick) 228 mg/dL (70-99) Medications Active Scripts Medications Dose Route/Sig Max Daily Dose Days Date Category Hydralazine Hcl 10 Mg Tablet 1 Tab PO BID 09/03/18 Reported Hydralazine Hcl 10 Mg Tablet 1 Tab PO BID 08/19/17 Rx Cefpodoxime Proxetil 200 Mg Tablet 1 Tab PO BID 08/19/17 Rx Esomeprazole Magnesium 40 Mg Capsule.dr 40 Mg PO DAILY07 08/14/17 Reported Montelukast Sodium Tablet (Montelukast Sodium) 10 Mg Tablet 10 Mg PO HS 08/14/17 Reported Glimepiride 2 Mg Tablet 1 Mg PO DAILY 08/14/17 Reported Magnesium Oxide 400 Mg Tablet 1 Tab PO DAILY 02/20/17 Reported Xopenex Hfa (Levalbuterol Tartrate) 15 Gm Hfa.aer.ad 45 Gm IH 02/20/17 Reported Lortab 5-325 mg Tablet (Hydrocodone/Acetaminophen) 1 Each Tablet 1 Tab PO PRN Q6HRS PRN 02/15/16 Rx Cellcept (Mycophenolate Mofetil) 500 Mg Tablet 750 Mg PO BID 09/09/14 Reported Vitamin B-12 (Cyanocobalamin (Vitamin B-12)) 1,000 Mcg Tablet 1 Tab PO DAILY 09/09/14 Reported Artificial Tears Eye Drops (Dextran 70/Hypromellose) 15 Ml Drops 1 Drop EACHEYE QID 09/09/14 Reported Restasis (Cyclosporine) 1 Each Droperette 1 Drop EACHEYE BID 06/05/14 Reported Aspir 81 (Aspirin) 81 Mg Tablet.dr 1 Tab PO BID 06/05/14 Reported Vitamin C (Ascorbic Acid) 500 Mg Tablet 500 Mg PO DAILY 06/05/14 Reported Ferrous Sulfate 325 Mg Tablet 1 Tab PO TID 06/05/14 Reported Calcium 500 + D Tablet (Calcium Carbonate/Vitamin D3) 1 Each Tablet 1 Each PO DAILY 06/05/14 Reported Carafate (Sucralfate) 1 Gm Tablet 1 Tab PO BID 06/05/14 Reported Duoneb 0.5 Mg-3 Mg/3 Ml Soln (Ipratropium/Albuterol Sulfate) 3 Ml Ampul.neb 3 Ml IH QID 08/30/13 Reported Lyrica (Pregabalin) 100 Mg Capsule 200 Mg PO BID 08/29/13 Reported Plaquenil (Hydroxychloroquine Sulfate) 200 Mg Tablet 200 Mg PO BID 08/29/13 Reported Percocet 5-325 Mg Tablet (Oxycodone/Acetaminophen) 1 Each Tablet 1 Each PO Q4HRS PRN 08/29/13 Reported Toprol Xl (Metoprolol Succinate) 50 Mg Tab.er.24h 50 Mg PO DAILY 08/29/13 Reported Levothyroxine Sodium 50 Mcg Tablet 25 Mcg PO DAILY 08/29/13 Reported Reglan (Metoclopramide Hcl) 10 Mg Tablet 10 Mg PO QIDACHS 08/29/13 Reported Benazepril Hcl 10 Mg Tablet 5 Mg PO DAILY 08/29/13 Reported Lipitor (Atorvastatin Calcium) 10 Mg Tablet 10 Mg PO DAILY 08/29/13 Reported Coumadin (Warfarin Sodium) 5 Mg Tablet 4 Mg PO DAILY 08/29/13 Reported Lasix (Furosemide) 20 Mg Tablet 20 Mg PO BID 08/29/13 Reported Claritin (Loratadine) 10 Mg Capsule 10 Mg PO DAILY 08/29/13 Reported Antivert (Meclizine Hcl) 12.5 Mg Tablet 12.5 Mg PO TID PRN 08/29/13 Reported Asmanex (Mometasone Furoate) 110 Mcg Aer.pow.ba 2 Puff IH BID 08/29/13 Reported Zofran Odt (Ondansetron) 8 Mg Tab.rapdis 8 Mg PO 08/29/13 Reported Impression . IMPRESSION: 1. Qjxvq-dw-romnqhp respiratory failure secondary to multifactorial etiologie 2. Acute metabolic acidosis 3. SEPSIS 4. History of extensive pulmonary fibrosis REVIEWED CT OF 2017 with end-stage honeycombing, on home oxygen chronically. 5. History of scleroderma, on CellCept, immunosuppressed. 6. LEUKOCYTOSIS 7. Escherichia coli urinary tract infection. 8. Coagulopathy 9. History of pulmonary embolism and deep venous thrombosis, on chronic anticoagulation with Coumadin. 10. ACUTE BLOOD LOSS ANEMIA BLOOD CULTURE Final GRAM NEGATIVE RODS SEEN IN 2 OF 4 BOTTLES; 2 SETS WERE DRAWN; RESULTS WERE CALLED TO SHAHNAZ CARLOS IN ICU AT 0840; 09/02/18 BY ERIC. THE BLOOD CULTURES HAVE BEEN SENT TO [facility] FOR FURTHER WORKUP. URINE CULTURE Final Final report URINE CULTURE RES 1 Final Escherichia coli Greater than 100,000 colony forming units per mL Cefazolin <=4 ug/mL Cefazolin with an ARLETTE <=16 predicts susceptibility to the oral agents cefaclor, cefdinir, cefpodoxime, cefprozil, cefuroxime, cephalexin, and loracarbef when used for therapy of uncomplicated urinary tract infections due to E. coli, Klebsiella pneumoniae, and Proteus mirabilis. ANTIMICROBIAL SUSCEPTIBILITY Final Comment S = Susceptible; I = Intermediate; R = Resistant P = Positive; N = Negative MICS are expressed in micrograms per mL Antibiotic RSLT#1 RSLT#2 RSLT#3 RSLT#4 Amoxicillin/Clavulanic Acid S =8 Ampicillin R>=32 Cefepime S<=0.12 Ceftriaxone S<=0.25 Cefuroxime S =4 Ciprofloxacin S<=0.25 Ertapenem S<=0.12 Gentamicin S<=1 Imipenem S<=0.25 Levofloxacin S<=0.12 Meropenem S<=0.25 Nitrofurantoin S<=16 Piperacillin/Tazobactam S<=4 Tetracycline S<=1 Tobramycin S<=1 Trimethoprim/Sulfa R>=320 Performed at: [facility] [address], [place], [place] [id number] Plan . D/W SISTER IN LAW AT BEDSIDE ANITI BX PER ID NIV FOR NOW MAY NEED INTUBATION IF SHE DETERIORATES, SPOKE WITH PATENT AND FAMILY 08/26 SHE WISHES TO BE AGGRESSIVE INCLUDING TRACH AND LTAC D/W DR TORO AND PAT PALLIATIVE CARE MONITOR H/H FOLLOW CARD INPUT MAY NEED TPN CCT 30 MIN REBEKAH ROWLAND MD Sep 06, 2018 09:45
--- NOTE | 2018-09-06 10:11 | PDOC ---
PROGRESS NOTES Subjective Subjective pt obtunded not responsive on BIPAP Objective Objective Vital Signs Date Time Temp Pulse Resp B/P (MAP) Pulse Ox O2 Delivery O2 Flow Rate FiO2 09/06/18 09:08 99 BiPAP/CPAP 09/06/18 06:00 124 39 115/79 (91) 09/06/18 04:00 15.0 09/06/18 04:00 98.9 98.9 Intake and Output 09/06/18 07:00 Intake Total 890 ml Output Total 1705 ml Balance -815 ml Intake Oral 0 ml IV Total 890 ml Output Urine Total 1705 ml Physical Exam Abdomen: Soft, No tenderness Heart: Normal S1, Normal S2, Other (tachycardia hr 110-120) Extremities: No cyanosis, Other (trace LE edema) General: Other (obtunded) HEENT: Other (BIPAP) Lungs: Other (basilar crackles ) Psych/Mental Status: Other (obtunded not responsive) Skin: Other COMMENT BIPAP Diagnosis Problem List Problems Medical Problems: (1) Hypomagnesemia Status: Acute (2) Hyponatremia Status: Acute (3) Renal insufficiency Status: Acute (4) Sepsis Status: Acute Assessment Assessment Problems Medical Problems: (1) Hypomagnesemia Status: Acute (2) Hyponatremia Status: Acute (3) Renal insufficiency Status: Acute (4) Sepsis Status: Acute FINAL IMPRESSION: Obtunded. Ac resp failure on BIPAP, PH 7.54 CHf /pul edema from fluid overload responded with iv lasix Non Stemi, sherine troponin 2.0 Acute sepsis due to gram neg bacteremia. Acute kidney fialure due to ATN.cr1.3 dec urine out put pts condition declining. Palliative team consult 1. Acute sepsis.Gram neg bacteremia. 2. Leukocytosis.wbc 35 3. Urinary tract infection.E Coli 4. Pneumonitis. 5. Interstitial lung disease. 6. Hyponatremia. 7. Acute kidney failure. 8. Diabetes. 9. Chronic immune suppression. 10. Scleroderma. 11. History of deep venous thrombosis, pulmonary embolism, on Coumadin. 12. Anxiety. 13. Depression. 14. Gastroesophageal reflux disease. 15. Multiple allergies. 16. Non-ST elevation myocardial infarction with elevated troponin. 17.Hypotension PLAN:BIPAP today fluid overload responded with iv lasix sherine troponin. dec urine out put , give fluid bolus. NA 149 hypernatremia, renal consult appreciated wbc 25 trending down,on steroids pot 3.[address] abd -ve poor prognosis blood c/s positive for gram neg rods in 2/4 bottles.iv Zosyn coagulopathy,inr 1.9 holding coumadin.,give vit K spoke with pts son,about pts prognosis. Palliative team consult,for goals of care. pt/ot ECHO -good lvf Plan Plan of Care Problems Medical Problems: (1) Hypomagnesemia Status: Acute (2) Hyponatremia Status: Acute (3) Renal insufficiency Status: Acute (4) Sepsis Status: Acute Comment Review of Relevant I have reviewed the following items bill (where applicable) has been applied. Labs Laboratory Tests Test 09/05/18 12:18 09/05/18 16:58 09/06/18 05:15 09/06/18 05:50 Glucose (Fingerstick) 249 mg/dL (70-99) 234 mg/dL (70-99) White Blood Count 20.9 x10^3/uL (4.0-11.0) Red Blood Count 3.43 x10^6/uL (3.50-5.40) Hemoglobin 9.4 g/dL (12.0-15.5) Hematocrit 29.3 % (36.0-47.0) Mean Corpuscular Volume 86 fL (79-100) Mean Corpuscular Hemoglobin 28 pg (25-35) Mean Corpuscular Hemoglobin Concent 32 g/dL (31-37) Red Cell Distribution Width 14.4 % (11.5-14.5) Platelet Count 224 x10^3/uL (140-400) Neutrophils (%) (Auto) 95 % (31-73) Lymphocytes (%) (Auto) 2 % (24-48) Monocytes (%) (Auto) 4 % (0-9) Eosinophils (%) (Auto) 0 % (0-3) Basophils (%) (Auto) 0 % (0-3) Neutrophils # (Auto) 19.8 x10^3uL (1.8-7.7) Lymphocytes # (Auto) 0.3 x10^3/uL (1.0-4.8) Monocytes # (Auto) 0.8 x10^3/uL (0.0-1.1) Eosinophils # (Auto) 0.0 x10^3/uL (0.0-0.7) Basophils # (Auto) 0.0 x10^3/uL (0.0-0.2) Prothrombin Time 21.1 SEC (11.7-14.0) Prothromb Time International Ratio 1.9 (0.8-1.1) Sodium Level 149 mmol/L (136-145) Potassium Level 3.3 mmol/L (3.5-5.1) Chloride Level 109 mmol/L (98-107) Carbon Dioxide Level 32 mmol/L (21-32) Anion Gap 8 (6-14) Blood Urea Nitrogen 48 mg/dL (7-20) Creatinine 1.2 mg/dL (0.6-1.0) Estimated GFR (Cockcroft-Gault) 53.9 Glucose Level 290 mg/dL (70-99) Calcium Level 10.8 mg/dL (8.5-10.1) Arterial Blood pH 7.57 (7.35-7.45) Arterial Blood pCO2 at Patient Temp 32 mmHg (35-46) Arterial Blood pO2 at Patient Temp 88 mmHg (65-108) Arterial Blood HCO3 29 mmol/L (21-28) Arterial Blood Base Excess 7 mmol/L (-3-3) FiO2 40 Test 09/06/18 08:21 Glucose (Fingerstick) 228 mg/dL (70-99) Microbiology 09/01/18 Blood Culture - Preliminary, Resulted NO GROWTH AFTER 4 DAYS 08/31/18 Urine Culture - Final, Complete 08/31/18 Urine Culture Result 1 (ARLETTE) - Final, Complete 08/31/18 Antimicrobic Susceptibility - Final, Complete Medications Current Medications Dextrose/Sodium Chloride 500 ml @ 0 mls/hr 1X ONCE IV ; Start 09/05/18 at 10:15 ; Stop 09/05/18 at 11:09; Status DC Dextrose/Sodium Chloride 500 ml @ 0 mls/hr 1X ONCE IV Last administered on at 10:42; Start 09/05/18 at 10:45; Stop 09/05/18 at 10:46; Status DC Dextrose/Sodium Chloride 1,000 ml @ 100 mls/hr Q10H IV Last administered on at 06:32; Start 09/05/18 at 10:15 Furosemide (Lasix) 60 mg 1X ONCE IVP Last administered on 09/05/18at 12:16; Start 09/05/18 at 12:15; Stop 09/05/18 at 12:16; Status DC Pantoprazole Sodium (PROTONIX VIAL for IV PUSH) 40 mg DAILYAC IVP Last administered on 09/06/18at 08:42; Start 09/06/18 at 07:30 Sodium Chloride (Saline Mist Nasal) 1 shakira PRN Q1HR PRN NS NASAL CONGESTION Last administered on 09/05/18at 17:03; Start 09/05/18 at 16:00 Vitals/I & O Vital Sign - Last 24 Hours 09/05/18 09/05/18 09/05/18 09/05/18 10:33 10:33 10:34 11:00 Temp 98.4 98.4 Pulse 113 113 113 114 Resp 38 B/P (MAP) 145/76 145/76 145/76 144/76 (98) Pulse Ox 100 O2 Delivery BiPAP/CPAP O2 Flow Rate 15.0 09/05/18 09/05/18 09/05/18 09/05/18 11:42 12:00 12:00 12:00 Pulse 116 Resp 41 B/P (MAP) 148/83 (104) Pulse Ox 99 98 O2 Delivery BiPAP/CPAP Bi-pap BiPAP/CPAP O2 Flow Rate 15.0 09/05/18 09/05/18 09/05/18 09/05/18 13:00 13:17 14:00 15:12 Pulse 116 118 118 Resp 31 37 37 B/P (MAP) 146/79 (101) 144/87 (106) 146/86 (106) Pulse Ox 100 99 100 99 O2 Delivery BiPAP/CPAP BiPAP/CPAP BiPAP/CPAP BiPAP/CPAP 09/05/18 09/05/18 09/05/18 09/05/18 15:50 16:00 16:00 16:00 Pulse 125 Resp 46 B/P (MAP) 148/83 (104) Pulse Ox 98 98 O2 Delivery BiPAP/CPAP BiPAP/CPAP Bi-pap O2 Flow Rate 15.0 09/05/18 09/05/18 09/05/18 09/05/18 17:08 17:25 18:00 19:00 Temp 98.5 98.5 Pulse 123 127 128 Resp 50 57 35 B/P (MAP) 153/90 (111) 137/80 (99) 139/87 (104) Pulse Ox 98 98 97 98 O2 Delivery BiPAP/CPAP BiPAP/CPAP BiPAP/CPAP BiPAP/CPAP 09/05/18 09/05/18 09/05/18 09/05/18 19:34 20:00 20:00 20:00 Pulse 122 Resp 49 B/P (MAP) 140/79 (99) Pulse Ox 98 97 O2 Delivery BiPAP/CPAP BiPAP/CPAP Bi-pap O2 Flow Rate 15.0 09/05/18 09/05/18 09/05/18 09/05/18 21:00 21:05 22:00 23:00 Pulse 120 124 122 Resp 21 50 41 B/P (MAP) 138/75 (96) 144/73 (96) 140/79 (99) Pulse Ox 99 99 98 98 O2 Delivery BiPAP/CPAP BiPAP/CPAP BiPAP/CPAP BiPAP/CPAP 09/05/18 09/05/18 09/06/18 09/06/18 23:19 23:59 00:00 00:00 Temp 98.8 98.8 Pulse 125 Resp 52 B/P (MAP) 140/65 (90) Pulse Ox 98 98 O2 Delivery BiPAP/CPAP Bi-pap BiPAP/CPAP O2 Flow Rate 15.0 09/06/18 09/06/18 09/06/18 09/06/18 01:00 01:10 02:00 02:57 Pulse 123 128 130 Resp 49 44 B/P (MAP) 143/83 (103) 143/85 (104) 143/85 Pulse Ox 98 97 98 O2 Delivery BiPAP/CPAP BiPAP/CPAP BiPAP/CPAP 09/06/18 09/06/18 09/06/18 09/06/18 03:00 03:00 04:00 04:00 Temp 98.9 98.9 Pulse 116 118 Resp 42 42 B/P (MAP) 145/73 (97) 146/83 (104) Pulse Ox 99 98 98 O2 Delivery BiPAP/CPAP BiPAP/CPAP Bi-pap BiPAP/CPAP 09/06/18 09/06/18 09/06/18 09/06/18 04:00 04:55 05:02 06:00 Pulse 120 124 Resp 44 39 B/P (MAP) 144/84 (104) 115/79 (91) Pulse Ox 98 98 98 O2 Delivery BiPAP/CPAP BiPAP/CPAP BiPAP/CPAP O2 Flow Rate 15.0 09/06/18 09/06/18 07:18 09:08 Pulse Ox 98 99 O2 Delivery BiPAP/CPAP BiPAP/CPAP Intake and Output 09/05/18 09/05/18 09/06/18 15:00 23:00 07:00 Intake Total 50 ml 790 ml 50 ml Output Total 980 ml 470 ml 255 ml Balance -930 ml 320 ml -205 ml Nutrition Consultation Dietary Evaluation: Recommendations by RD: Increase Calorie Intake, PPN/TPN Comments: If unable to advance PO diet and continued BiPAP dependence, recommend TPN per followin g dextrose, 65 g AA, 20 g lipid When/if able to advance diet, recommend goal diet ADA/cardiac per pmhx Expected Outcomes/Goals: PO intake to meet >75% est needs - not met, new goal established New goal 09/05: Initiation of nutrition support if unable to advance diet within 48-72 hrs Malnutrition Findings: Weight Status: Appropriate CHARLES VASQUEZ MD Sep 06, 2018 10:11
--- NOTE | 2018-09-06 10:50 | PDOC2 ---
PALLIATIVE CARE Palliative Care Note Palliative Care Patient unresponsive to verbal stimuli. On BiPap Patient has been accepted at [facility]. Dr. Mcclendon and Dr. Ward aware. Family wants to continue current aggressive care. BETH YEPEZ Sep 06, 2018 10:50
--- NOTE | 2018-09-06 11:50 | PDOC ---
Renal-Progress Notes Subjective Notes Notes ON BIPAP History of Present Illness Hx of present illness NO CHANGE Vitals Vitals Vital Signs Date Time Temp Pulse Resp B/P (MAP) Pulse Ox O2 Delivery O2 Flow Rate FiO2 09/06/18 11:06 99 BiPAP/CPAP 09/06/18 06:00 124 39 115/79 (91) 09/06/18 04:00 15.0 09/06/18 04:00 98.9 98.9 Weight Weight [ ] I.O. Intake and Output Intake and Output 09/06/18 07:00 Intake Total 890 ml Output Total 1705 ml Balance -815 ml Intake Oral 0 ml IV Total 890 ml Output Urine Total 1705 ml Labs Labs Laboratory Tests Test 09/05/18 12:18 09/05/18 16:58 09/06/18 05:15 09/06/18 05:50 Glucose (Fingerstick) 249 mg/dL (70-99) 234 mg/dL (70-99) White Blood Count 20.9 x10^3/uL (4.0-11.0) Red Blood Count 3.43 x10^6/uL (3.50-5.40) Hemoglobin 9.4 g/dL (12.0-15.5) Hematocrit 29.3 % (36.0-47.0) Mean Corpuscular Volume 86 fL (79-100) Mean Corpuscular Hemoglobin 28 pg (25-35) Mean Corpuscular Hemoglobin Concent 32 g/dL (31-37) Red Cell Distribution Width 14.4 % (11.5-14.5) Platelet Count 224 x10^3/uL (140-400) Neutrophils (%) (Auto) 95 % (31-73) Lymphocytes (%) (Auto) 2 % (24-48) Monocytes (%) (Auto) 4 % (0-9) Eosinophils (%) (Auto) 0 % (0-3) Basophils (%) (Auto) 0 % (0-3) Neutrophils # (Auto) 19.8 x10^3uL (1.8-7.7) Lymphocytes # (Auto) 0.3 x10^3/uL (1.0-4.8) Monocytes # (Auto) 0.8 x10^3/uL (0.0-1.1) Eosinophils # (Auto) 0.0 x10^3/uL (0.0-0.7) Basophils # (Auto) 0.0 x10^3/uL (0.0-0.2) Prothrombin Time 21.1 SEC (11.7-14.0) Prothromb Time International Ratio 1.9 (0.8-1.1) Sodium Level 149 mmol/L (136-145) Potassium Level 3.3 mmol/L (3.5-5.1) Chloride Level 109 mmol/L (98-107) Carbon Dioxide Level 32 mmol/L (21-32) Anion Gap 8 (6-14) Blood Urea Nitrogen 48 mg/dL (7-20) Creatinine 1.2 mg/dL (0.6-1.0) Estimated GFR (Cockcroft-Gault) 53.9 Glucose Level 290 mg/dL (70-99) Calcium Level 10.8 mg/dL (8.5-10.1) Arterial Blood pH 7.57 (7.35-7.45) Arterial Blood pCO2 at Patient Temp 32 mmHg (35-46) Arterial Blood pO2 at Patient Temp 88 mmHg (65-108) Arterial Blood HCO3 29 mmol/L (21-28) Arterial Blood Base Excess 7 mmol/L (-3-3) FiO2 40 Test 09/06/18 08:21 Glucose (Fingerstick) 228 mg/dL (70-99) Micro Micro Microbiology 09/01/18 Blood Culture - Final, Complete NO GROWTH AFTER 5 DAYS 08/31/18 Urine Culture - Final, Complete 08/31/18 Urine Culture Result 1 (ARLETTE) - Final, Complete 08/31/18 Antimicrobic Susceptibility - Final, Complete Review of Systems Constitutional: yes: other (UNABLE TO OBTAIN, PT ON BIPAP AND IN MOD DISTRESS) Physical Exam General Appearance: moderate distress Skin: warm, dry Respiratory: decreased breath sounds Heart: S1S2, RRR Abdomen: soft, bowel sounds present Genitourinary: bladder flat Extremities: pulses present, no edema Neurology: alert, other (flat affect, ON BIPAP) Assessment Assessment IMP AVA-STABLE HYPERVOLEMIA-RESOLVED ACUTE RESP FAILURE PULMONARY FIBROSIS CHRONIC IMMUNOSUPPRESSION SCLERODERMA HYPOKALEMIA UTI SEPSIS LEUCOCYTOSIS ANEMIA PLAN PPN ANTIBIOTICS SUPPLEMENTAL O2 AND BIPAP AGREE WITH PULMONARY CONCERNS ON PT POSSIBLY NEEDING INTUBATION CONT DHRUV-I IN VIEW OF SCLERODERMA STOP HER CELLCEPT D/W DR ROWLAND AND DR VASQUEZ OVERALL POOR PROGNOSIS WILL SIRI HIGHTOWER MD Sep 06, 2018 11:50
[2018-09-06] MEDS: AMINO AC 3%/ELECTROLYTE/GLYCER 1,000 ML IV SCH (12:00)
[2018-09-06] MEDS: MONTELUKAST SODIUM 10 MG TABLET. PO SCH (19:38)
[2018-09-06] MEDS: ATORVASTATIN CALCIUM 10 MG TABLET. PO SCH (19:38)
[2018-09-07] VITALS (12 sets, daily range): BP systolic 101–157; BP diastolic 54–86
[2018-09-07] MEDS: METOPROLOL TARTRATE 5 MG/5 ML VIAL. IVP PRN ×2 (01:39→07:51)
[2018-09-07] MEDS: IPRATROPIUM BROMIDE 0.5 MG/2.5 ML NEBU. NEB SCH ×2 (03:38→07:53)
[2018-09-07] MEDS: AMINO AC 3%/ELECTROLYTE/GLYCER 1,000 ML IV SCH (03:53)
[2018-09-07] MEDS: LEVOTHYROXINE 25 MCG TABLET. PO SCH (05:22)
[2018-09-07] MEDS: MEROPENEM 500 MG in IV NORMAL SALINE 50ML 50 ML IV SCH (05:36)
[2018-09-07 05:56] LABS: BASO # 0.1 x10^3/uL (0.0-0.2); BASO % 0 % (0-3); EOS % 0 % (0-3); HEMATOCRIT 28.6 % (36.0-47.0); HEMOGLOBIN 9.1 g/dL (12.0-15.5); LYMPH # 0.3 x10^3/uL (1.0-4.8); LYMPH % 1 % (24-48); MEAN CORPUSCULAR HEMOGLOBIN 28 pg (25-35); MEAN CORPUSCULAR HGB CONC 32 g/dL (31-37); MEAN CORPUSCULAR VOLUME 88 fL (79-100); MONO # 1.3 x10^3/uL (0.0-1.1); MONO % 5 % (0-9); NEUT % 94 % (31-73); PLATELET COUNT 171 x10^3/uL (140-400); RED BLOOD COUNT 3.26 x10^6/uL (3.50-5.40); RED CELL DISTRIBUTION WIDTH 14.6 % (11.5-14.5); WHITE BLOOD COUNT 25.6 x10^3/uL (4.0-11.0)
[2018-09-07 06:05] LABS: CALCIUM 11.2 mg/dL (8.5-10.1); GFR 66.5; MAGNESIUM 2.7 mg/dL (1.8-2.4); PHOSPHORUS 2.2 mg/dL (2.6-4.7); POTASSIUM 3.4 mmol/L (3.5-5.1)
[2018-09-07] MEDS: methylPREDNISolone SOD SUCC PF 40 MG/ML VIAL. IV SCH (07:49)
[2018-09-07] MEDS: PANTOPRAZOLE IV PUSH 40 MG VIAL. IVP SCH (07:49)
[2018-09-07] MEDS: cycloSPORINE 0.05% OPHTH DROPERETTE. OU SCH (07:50)
[2018-09-07] MEDS: POLYVINYL ALCOHOL 1.4% OPHTH SOLUTION 15ML BOTTLE. OU SCH (07:50)
[2018-09-07] MEDS: BUDESONIDE 0.5 MG/2 ML NEBU. NEB SCH (07:53)
--- NOTE | 2018-09-07 08:01 | PDOC ---
Infectious Disease Note Subjective Subjective awake on bipap ROS ROS no n/v/d/fever Vital Sign Vital Signs Vital Signs Date Time Temp Pulse Resp B/P (MAP) Pulse Ox O2 Delivery O2 Flow Rate FiO2 09/07/18 07:54 98 BiPAP/CPAP 09/07/18 07:51 126 157/86 09/07/18 06:00 40 09/07/18 04:00 97.9 97.9 09/06/18 16:00 15.0 Physical Exam PHYSICAL EXAM GENERAL: . Awake, with rapid RS, on BiPAP HENT: Oral cavity, pharynx is clear, dry. NECK: Supple LUNGS: Diminished aeration bases, labored HEART: S1, S2. ABDOMEN: Soft, nontender, no guarding or rebound. EXTREMITIES: Without clubbing, cyanosis or gross edema. SKIN: No rash. NEUROLOGIC: lethargic, moves all ext PIV ok Labs Lab Laboratory Tests Test 09/06/18 08:21 09/06/18 14:30 09/06/18 18:12 09/07/18 05:15 Glucose (Fingerstick) 228 mg/dL (70-99) 270 mg/dL (70-99) 261 mg/dL (70-99) White Blood Count 25.6 x10^3/uL (4.0-11.0) Red Blood Count 3.26 x10^6/uL (3.50-5.40) Hemoglobin 9.1 g/dL (12.0-15.5) Hematocrit 28.6 % (36.0-47.0) Mean Corpuscular Volume 88 fL (79-100) Mean Corpuscular Hemoglobin 28 pg (25-35) Mean Corpuscular Hemoglobin Concent 32 g/dL (31-37) Red Cell Distribution Width 14.6 % (11.5-14.5) Platelet Count 171 x10^3/uL (140-400) Neutrophils (%) (Auto) 94 % (31-73) Lymphocytes (%) (Auto) 1 % (24-48) Monocytes (%) (Auto) 5 % (0-9) Eosinophils (%) (Auto) 0 % (0-3) Basophils (%) (Auto) 0 % (0-3) Neutrophils # (Auto) 24.0 x10^3uL (1.8-7.7) Lymphocytes # (Auto) 0.3 x10^3/uL (1.0-4.8) Monocytes # (Auto) 1.3 x10^3/uL (0.0-1.1) Eosinophils # (Auto) 0.0 x10^3/uL (0.0-0.7) Basophils # (Auto) 0.1 x10^3/uL (0.0-0.2) Sodium Level 152 mmol/L (136-145) Potassium Level 3.4 mmol/L (3.5-5.1) Chloride Level 112 mmol/L (98-107) Carbon Dioxide Level 32 mmol/L (21-32) Anion Gap 8 (6-14) Blood Urea Nitrogen 49 mg/dL (7-20) Creatinine 1.0 mg/dL (0.6-1.0) Estimated GFR (Cockcroft-Gault) 66.5 Glucose Level 343 mg/dL (70-99) Calcium Level 11.2 mg/dL (8.5-10.1) Phosphorus Level 2.2 mg/dL (2.6-4.7) Magnesium Level 2.7 mg/dL (1.8-2.4) Micro BLOOD CULTURE Final GRAM NEGATIVE RODS SEEN IN 2 OF 4 BOTTLES; 2 SETS WERE DRAWN; RESULTS WERE CALLED TO SHAHNAZ CARLOS IN ICU AT 0840; 09/02/18 BY ERIC. THE BLOOD CULTURES HAVE BEEN SENT TO [facility] FOR FURTHER WORKUP. URINE CULTURE Final Final report URINE CULTURE RES 1 Final Escherichia coli Greater than 100,000 colony forming units per mL Cefazolin <=4 ug/mL Cefazolin with an ARLETTE <=16 predicts susceptibility to the oral agents cefaclor, cefdinir, cefpodoxime, cefprozil, cefuroxime, cephalexin, and loracarbef when used for therapy of uncomplicated urinary tract infections due to E. coli, Klebsiella pneumoniae, and Proteus mirabilis. ANTIMICROBIAL SUSCEPTIBILITY Final Comment S = Susceptible; I = Intermediate; R = Resistant P = Positive; N = Negative MICS are expressed in micrograms per mL Antibiotic RSLT#1 RSLT#2 RSLT#3 RSLT#4 Amoxicillin/Clavulanic Acid S =8 Ampicillin R>=32 Cefepime S<=0.12 Ceftriaxone S<=0.25 Cefuroxime S =4 Ciprofloxacin S<=0.25 Ertapenem S<=0.12 Gentamicin S<=1 Imipenem S<=0.25 Levofloxacin S<=0.12 Meropenem S<=0.25 Nitrofurantoin S<=16 Piperacillin/Tazobactam S<=4 Tetracycline S<=1 Tobramycin S<=1 Trimethoprim/Sulfa R>=320 Performed at: [facility] - [facility] [address] [facility] [address], [place], [place] [id number] Objective Assessment Sepsis present on admission, 08/31 with GNR bacteremia E. Coli UTI POA, 08/31 Anemia s/p PRBCs - ? GI bleed - CT neg for Hematoma Leukocytosis, likely reactive in part steroids - Immunosuppression. Pulmonary fibrosis ANTIBIOTIC ALLERGIES, has tolerated Vantin. NSTEMI with Elevated troponin. Acute kidney injury, better Coagulopathy Respiratory failure possible going in to ARDS Plan Plan of Care Cont Meropenem F/u labs and cults Critically ill D/w nursing prognosis poor GABY SOLARES MD Sep 07, 2018 08:01
[2018-09-07] MEDS: INSULIN LISPRO 300 UNITS/3 ML INSULN.PEN. SQ SCH (08:07)
[2018-09-07 08:47] LABS: BASE EXCESS ABG 7 mmol/L (-3-3); HCO3 ABG 30 mmol/L (21-28); PCO2 ABG 36 mmHg (35-46); PO2 ABG 71 mmHg (65-108)
[2018-09-07] MEDS: METOPROLOL SUCC 24HR ER 50 MG TAB.ER.24H. PO SCH (09:00)
[2018-09-07] MEDS: hydrALAZINE 10 MG TABLET PO SCH (09:00)
[2018-09-07] MEDS: LISINOPRIL 5 MG TABLET. PO SCH (09:00)
[2018-09-07] MEDS: ASCORBIC ACID 500 MG TABLET PO SCH (09:00)
[2018-09-07] MEDS: HYDROXYCHLOROQUINE 200 MG TABLET PO SCH (09:00)
[2018-09-07] MEDS: CYANOCOBALAMIN (VITAMIN B-12) 1,000 MCG TABLET. PO SCH (09:00)
[2018-09-07] MEDS: SUCRALFATE 1 GM TABLET. PO SCH (09:00)
[2018-09-07] MEDS: CETIRIZINE HCL 10 MG TABLET. PO SCH (09:00)
[2018-09-07] MEDS: MAGNESIUM OXIDE 400 MG TABLET PO SCH (09:00)
[2018-09-07] MEDS: ASPIRIN ENTERIC COATED 81 MG TABLET.DR. PO SCH (09:00)
[2018-09-07] MEDS: FERROUS SULFATE 325 MG TABLET. PO SCH (09:00)
[2018-09-07 09:39] LABS: FIO2 ABG 40; SAT O2 ABG 95 % (92-99)
[2018-09-07] MEDS ORDERED: LORazepam 1 MG TABLET PO PRN (10:00)
--- NOTE | 2018-09-07 10:09 | PDOC ---
PROGRESS NOTES Subjective Subjective On BIPAP ,opens eyes today , not aware of surroundings Objective Objective Vital Signs Date Time Temp Pulse Resp B/P (MAP) Pulse Ox O2 Delivery O2 Flow Rate FiO2 09/07/18 09:00 117 46 127/84 (98) 98 BiPAP/CPAP 09/07/18 08:00 98.7 98.7 09/06/18 16:00 15.0 Intake and Output 09/07/18 07:00 Intake Total 1070 ml Output Total 1290 ml Balance -220 ml IV Total 1070 ml Output Urine Total 1290 ml # Bowel Movements 1 Physical Exam Abdomen: Soft, No tenderness Heart: Normal S1, Normal S2, Other (tachycardia hr 110-120) Extremities: No cyanosis, Other (trace LE edema) General: Other (eyes open) HEENT: Other (BIPAP) Lungs: Other (basilar crackles ) Psych/Mental Status: Other (eyes open) Skin: Other COMMENT BIPAP Diagnosis Problem List Problems Medical Problems: (1) Hypomagnesemia Status: Acute (2) Hyponatremia Status: Acute (3) Renal insufficiency Status: Acute (4) Sepsis Status: Acute Assessment Assessment Problems Medical Problems: (1) Hypomagnesemia Status: Acute (2) Hyponatremia Status: Acute (3) Renal insufficiency Status: Acute (4) Sepsis Status: Acute FINAL IMPRESSION: eyes open ,not interacting Ac resp failure on BIPAP, PH 7.54 CHf /pul edema from fluid overload responded with iv lasix Non Stemi, sherine troponin 2.0 Acute sepsis due to gram neg bacteremia.E Coli Acute kidney fialure due to ATN.cr1.3 dec urine out put pts condition declining. Palliative team consult hypernatremia NA 151 1. Acute sepsis.Gram neg bacteremia. 2. Leukocytosis.wbc 25 3. Urinary tract infection.E Coli 4. Pneumonitis. 5. Interstitial lung disease. 6. Hyponatremia. 7. Acute kidney failure. 8. Diabetes. 9. Chronic immune suppression. 10. Scleroderma. 11. History of deep venous thrombosis, pulmonary embolism, on Coumadin. 12. Anxiety. 13. Depression. 14. Gastroesophageal reflux disease. 15. Multiple allergies. 16. Non-ST elevation myocardial infarction with elevated troponin. 17.Hypotension PLAN:If intubated pt may not be able to be extubated,may end up medical terminologist trach and vent spoke with Pulmonary and Palliative team.Pat going to talk to son today about code status. BIPAP today fluid overload responded with iv lasix sherine troponin. dec urine out put , give fluid bolus. NA 151 hypernatremia, on ProcalAmine, renal consult appreciated wbc 25 trending down,on steroids pot 3.[address] abd -ve blood c/s positive for gram neg rods E Coli in 2/4 bottles.iv meropenum coagulopathy,inr 1.9 holding coumadin., spoke with pts son,about pts prognosis. Palliative team consult,for goals of care. poor prognosis Pt may not survive this admission Plan Plan of Care Problems Medical Problems: (1) Hypomagnesemia Status: Acute (2) Hyponatremia Status: Acute (3) Renal insufficiency Status: Acute (4) Sepsis Status: Acute Comment Review of Relevant I have reviewed the following items bill (where applicable) has been applied. Labs Laboratory Tests Test 09/06/18 14:30 09/06/18 18:12 09/07/18 05:15 09/07/18 08:00 Glucose (Fingerstick) 270 mg/dL (70-99) 261 mg/dL (70-99) White Blood Count 25.6 x10^3/uL (4.0-11.0) Red Blood Count 3.26 x10^6/uL (3.50-5.40) Hemoglobin 9.1 g/dL (12.0-15.5) Hematocrit 28.6 % (36.0-47.0) Mean Corpuscular Volume 88 fL (79-100) Mean Corpuscular Hemoglobin 28 pg (25-35) Mean Corpuscular Hemoglobin Concent 32 g/dL (31-37) Red Cell Distribution Width 14.6 % (11.5-14.5) Platelet Count 171 x10^3/uL (140-400) Neutrophils (%) (Auto) 94 % (31-73) Lymphocytes (%) (Auto) 1 % (24-48) Monocytes (%) (Auto) 5 % (0-9) Eosinophils (%) (Auto) 0 % (0-3) Basophils (%) (Auto) 0 % (0-3) Neutrophils # (Auto) 24.0 x10^3uL (1.8-7.7) Lymphocytes # (Auto) 0.3 x10^3/uL (1.0-4.8) Monocytes # (Auto) 1.3 x10^3/uL (0.0-1.1) Eosinophils # (Auto) 0.0 x10^3/uL (0.0-0.7) Basophils # (Auto) 0.1 x10^3/uL (0.0-0.2) Sodium Level 152 mmol/L (136-145) Potassium Level 3.4 mmol/L (3.5-5.1) Chloride Level 112 mmol/L (98-107) Carbon Dioxide Level 32 mmol/L (21-32) Anion Gap 8 (6-14) Blood Urea Nitrogen 49 mg/dL (7-20) Creatinine 1.0 mg/dL (0.6-1.0) Estimated GFR (Cockcroft-Gault) 66.5 Glucose Level 343 mg/dL (70-99) Calcium Level 11.2 mg/dL (8.5-10.1) Phosphorus Level 2.2 mg/dL (2.6-4.7) Magnesium Level 2.7 mg/dL (1.8-2.4) O2 Saturation 95 % (92-99) Arterial Blood pH 7.53 (7.35-7.45) Arterial Blood pCO2 at Patient Temp 36 mmHg (35-46) Arterial Blood pO2 at Patient Temp 71 mmHg (65-108) Arterial Blood HCO3 30 mmol/L (21-28) Arterial Blood Base Excess 7 mmol/L (-3-3) FiO2 40 Microbiology 09/01/18 Blood Culture - Final, Complete NO GROWTH AFTER 5 DAYS 08/31/18 Urine Culture - Final, Complete 08/31/18 Urine Culture Result 1 (ARLETTE) - Final, Complete 08/31/18 Antimicrobic Susceptibility - Final, Complete Medications Current Medications Amino Acids/ Glycerin/ Electrolytes 1,000 ml @ 80 mls/hr [id number] IV Last administered on 09/07/18at 03:53; Start 09/06/18 at 12:00 Lorazepam (Ativan) 1 mg PRN Q8HRS PRN PO ANXIETY / AGITATION; Start 09/07/18 at 10:00 Vitals/I & O Vital Sign - Last 24 Hours 09/06/18 09/06/18 09/06/18 09/06/18 11:00 11:06 12:00 12:00 Pulse 124 Resp 39 B/P (MAP) 140/82 (101) Pulse Ox 99 99 O2 Delivery BiPAP/CPAP BiPAP/CPAP Bi-pap O2 Flow Rate 15.0 09/06/18 09/06/18 09/06/18 09/06/18 12:00 13:00 13:00 14:00 Pulse 124 126 130 Resp 39 38 40 B/P (MAP) 140/81 (100) 137/76 (96) 140/79 (99) Pulse Ox 99 99 99 99 O2 Delivery BiPAP/CPAP BiPAP/CPAP BiPAP/CPAP BiPAP/CPAP 09/06/18 09/06/18 09/06/18 09/06/18 15:00 15:17 16:00 16:00 Pulse 126 128 Resp 35 37 B/P (MAP) 140/79 (99) 144/85 (104) Pulse Ox 99 91 99 O2 Delivery BiPAP/CPAP Venturi Mask BiPAP/CPAP O2 Flow Rate 12.0 15.0 09/06/18 09/06/18 09/06/18 09/06/18 16:00 17:00 17:07 18:00 Pulse 128 124 Resp 38 30 B/P (MAP) 141/80 (100) 144/75 (98) Pulse Ox 99 99 99 O2 Delivery Bi-pap BiPAP/CPAP BiPAP/CPAP BiPAP/CPAP 09/06/18 09/06/18 09/06/18 09/06/18 19:00 19:50 20:00 20:00 Temp 97.8 97.8 Pulse 133 133 Resp 20 26 B/P (MAP) 142/78 (99) 150/80 (103) Pulse Ox 99 99 98 O2 Delivery BiPAP/CPAP BiPAP/CPAP BiPAP/CPAP Bi-pap 09/06/18 09/06/18 09/06/18 09/06/18 21:00 22:00 23:00 23:15 Pulse 134 135 130 Resp 34 39 32 B/P (MAP) 147/84 (105) 137/79 (98) 141/83 (102) Pulse Ox 98 98 98 99 O2 Delivery BiPAP/CPAP BiPAP/CPAP BiPAP/CPAP BiPAP/CPAP 09/06/18 09/07/18 09/07/18 09/07/18 23:47 00:00 01:00 01:20 Temp 98.0 98.0 Pulse 133 131 Resp 28 26 B/P (MAP) 145/84 (104) 145/83 (103) Pulse Ox 98 99 99 O2 Delivery Bi-pap BiPAP/CPAP BiPAP/CPAP BiPAP/CPAP 09/07/18 09/07/18 09/07/18 09/07/18 01:39 02:00 03:00 03:36 Pulse 141 119 114 Resp 34 37 B/P (MAP) 145/83 141/78 (99) 136/77 (96) Pulse Ox 98 99 99 O2 Delivery BiPAP/CPAP BiPAP/CPAP BiPAP/CPAP 09/07/18 09/07/18 09/07/18 09/07/18 03:37 04:00 05:00 05:26 Temp 97.9 97.9 Pulse 124 124 Resp 34 38 B/P (MAP) 136/85 (102) 145/79 (101) Pulse Ox 98 98 99 O2 Delivery Bi-pap BiPAP/CPAP BiPAP/CPAP BiPAP/CPAP 09/07/18 09/07/18 09/07/18 09/07/18 06:00 07:00 07:51 07:54 Pulse 123 124 126 Resp 40 42 B/P (MAP) 146/78 (100) 157/86 (109) 157/86 Pulse Ox 99 98 98 O2 Delivery BiPAP/CPAP BiPAP/CPAP BiPAP/CPAP 09/07/18 09/07/18 09/07/18 09/07/18 08:00 08:00 08:51 09:00 Temp 98.7 98.7 Pulse 112 117 Resp 45 46 B/P (MAP) 143/84 (103) 127/84 (98) Pulse Ox 98 98 98 O2 Delivery Bi-pap BiPAP/CPAP BiPAP/CPAP BiPAP/CPAP Intake and Output 09/06/18 09/06/18 09/07/18 15:00 23:00 07:00 Intake Total 1070 ml Output Total 425 ml 470 ml 395 ml Balance -425 ml -470 ml 675 ml Nutrition Consultation Dietary Evaluation: Recommendations by RD: Increase Calorie Intake, PPN/TPN Comments: If unable to advance PO diet and continued BiPAP dependence, recommend TPN per followin g dextrose, 65 g AA, 20 g lipid When/if able to advance diet, recommend goal diet ADA/cardiac per pmhx Expected Outcomes/Goals: PO intake to meet >75% est needs - not met, new goal established New goal 09/05: Initiation of nutrition support if unable to advance diet within 48-72 hrs Malnutrition Findings: Weight Status: Appropriate CHARLES VASQUEZ MD Sep 07, 2018 10:09
--- NOTE | 2018-09-07 11:00 | PDOC ---
Renal-Progress Notes Subjective Notes Notes ON BIPAP History of Present Illness Hx of present illness NOT ANY BETTER Vitals Vitals Vital Signs Date Time Temp Pulse Resp B/P (MAP) Pulse Ox O2 Delivery O2 Flow Rate FiO2 09/07/18 09:00 117 46 127/84 (98) 98 BiPAP/CPAP 09/07/18 08:00 98.7 98.7 09/06/18 16:00 15.0 Weight Weight [ ] I.O. Intake and Output Intake and Output 09/07/18 06:59 Intake Total 1070 ml Output Total 1240 ml Balance -170 ml IV Total 1070 ml Output Urine Total 1240 ml # Bowel Movements 1 Labs Labs Laboratory Tests Test 09/06/18 14:30 09/06/18 18:12 09/07/18 05:15 09/07/18 08:00 Glucose (Fingerstick) 270 mg/dL (70-99) 261 mg/dL (70-99) White Blood Count 25.6 x10^3/uL (4.0-11.0) Red Blood Count 3.26 x10^6/uL (3.50-5.40) Hemoglobin 9.1 g/dL (12.0-15.5) Hematocrit 28.6 % (36.0-47.0) Mean Corpuscular Volume 88 fL (79-100) Mean Corpuscular Hemoglobin 28 pg (25-35) Mean Corpuscular Hemoglobin Concent 32 g/dL (31-37) Red Cell Distribution Width 14.6 % (11.5-14.5) Platelet Count 171 x10^3/uL (140-400) Neutrophils (%) (Auto) 94 % (31-73) Lymphocytes (%) (Auto) 1 % (24-48) Monocytes (%) (Auto) 5 % (0-9) Eosinophils (%) (Auto) 0 % (0-3) Basophils (%) (Auto) 0 % (0-3) Neutrophils # (Auto) 24.0 x10^3uL (1.8-7.7) Lymphocytes # (Auto) 0.3 x10^3/uL (1.0-4.8) Monocytes # (Auto) 1.3 x10^3/uL (0.0-1.1) Eosinophils # (Auto) 0.0 x10^3/uL (0.0-0.7) Basophils # (Auto) 0.1 x10^3/uL (0.0-0.2) Sodium Level 152 mmol/L (136-145) Potassium Level 3.4 mmol/L (3.5-5.1) Chloride Level 112 mmol/L (98-107) Carbon Dioxide Level 32 mmol/L (21-32) Anion Gap 8 (6-14) Blood Urea Nitrogen 49 mg/dL (7-20) Creatinine 1.0 mg/dL (0.6-1.0) Estimated GFR (Cockcroft-Gault) 66.5 Glucose Level 343 mg/dL (70-99) Calcium Level 11.2 mg/dL (8.5-10.1) Phosphorus Level 2.2 mg/dL (2.6-4.7) Magnesium Level 2.7 mg/dL (1.8-2.4) O2 Saturation 95 % (92-99) Arterial Blood pH 7.53 (7.35-7.45) Arterial Blood pCO2 at Patient Temp 36 mmHg (35-46) Arterial Blood pO2 at Patient Temp 71 mmHg (65-108) Arterial Blood HCO3 30 mmol/L (21-28) Arterial Blood Base Excess 7 mmol/L (-3-3) FiO2 40 Micro Micro Microbiology 09/01/18 Blood Culture - Final, Complete NO GROWTH AFTER 5 DAYS 08/31/18 Urine Culture - Final, Complete 08/31/18 Urine Culture Result 1 (ARLETTE) - Final, Complete 08/31/18 Antimicrobic Susceptibility - Final, Complete Review of Systems Constitutional: yes: other (UNABLE TO OBTAIN, PT ON BIPAP AND IN MOD DISTRESS) Physical Exam General Appearance: moderate distress Skin: warm, dry Respiratory: decreased breath sounds Heart: S1S2, RRR Abdomen: soft, bowel sounds present Genitourinary: bladder flat Extremities: pulses present, no edema Neurology: alert, other (flat affect, ON BIPAP) Assessment Assessment IMP [id number] DOWN TO 1.0 HYPERVOLEMIA-RESOLVED ACUTE RESP FAILURE PULMONARY FIBROSIS CHRONIC IMMUNOSUPPRESSION SCLERODERMA HYPOKALEMIA UTI SEPSIS LEUCOCYTOSIS ANEMIA PLAN PPN ANTIBIOTICS SUPPLEMENTAL O2 AND BIPAP AGREE WITH PULMONARY CONCERNS ON PT POSSIBLY NEEDING INTUBATION CONT DHRUV-I IN VIEW OF SCLERODERMA STOP HER CELLCEPT D/W DR ROWLAND AND DR VASQUEZ OVERALL POOR PROGNOSIS REPLACE K COMFORT CARE WOULD BE APPROPRIATE WILL SIRI HIGHTOWER MD Sep 07, 2018 11:00
--- NOTE | 2018-09-07 11:06 | PDOC ---
Subjective: Subjective: Son present and concerned. Objective: Objective: No GI concerns per RN, had brown stool. Family wishes for full aggressive care. Vital Signs: Vital Signs Date Time Temp Pulse Resp B/P (MAP) Pulse Ox O2 Delivery O2 Flow Rate FiO2 09/07/18 10:00 104 39 101/54 (70) 99 BiPAP/CPAP 09/07/18 08:00 98.7 98.7 09/06/18 16:00 15.0 Labs: Laboratory Tests Test 09/06/18 14:30 09/06/18 18:12 09/07/18 05:15 09/07/18 08:00 Glucose (Fingerstick) 270 mg/dL 261 mg/dL White Blood Count 25.6 x10^3/uL Red Blood Count 3.26 x10^6/uL Hemoglobin 9.1 g/dL Hematocrit 28.6 % Mean Corpuscular Volume 88 fL Mean Corpuscular Hemoglobin 28 pg Mean Corpuscular Hemoglobin Concent 32 g/dL Red Cell Distribution Width 14.6 % Platelet Count 171 x10^3/uL Neutrophils (%) (Auto) 94 % Lymphocytes (%) (Auto) 1 % Monocytes (%) (Auto) 5 % Eosinophils (%) (Auto) 0 % Basophils (%) (Auto) 0 % Neutrophils # (Auto) 24.0 x10^3uL Lymphocytes # (Auto) 0.3 x10^3/uL Monocytes # (Auto) 1.3 x10^3/uL Eosinophils # (Auto) 0.0 x10^3/uL Basophils # (Auto) 0.1 x10^3/uL Sodium Level 152 mmol/L Potassium Level 3.4 mmol/L Chloride Level 112 mmol/L Carbon Dioxide Level 32 mmol/L Anion Gap 8 Blood Urea Nitrogen 49 mg/dL Creatinine 1.0 mg/dL Estimated GFR (Cockcroft-Gault) 66.5 Glucose Level 343 mg/dL Calcium Level 11.2 mg/dL Phosphorus Level 2.2 mg/dL Magnesium Level 2.7 mg/dL O2 Saturation 95 % Arterial Blood pH 7.53 Arterial Blood pCO2 at Patient Temp 36 mmHg Arterial Blood pO2 at Patient Temp 71 mmHg Arterial Blood HCO3 30 mmol/L Arterial Blood Base Excess 7 mmol/L FiO2 40 PE: GEN: ill LUNGS: BiPAP HEART: tachycardic ABD: S/ND/NT NEURO/PSYCH: doesn't open eyes during exam A/P: Resp failure, urosepsis Anemia - stable H/o GERD and PUD - on PPI -- Continue same per GI. MARK MARTINEZ Sep 07, 2018 11:06
[2018-09-07] MEDS ORDERED: POTASSIUM CHLORIDE 10MEQ 100 ML IV SCH (11:30)
--- NOTE | 2018-09-07 12:09 | PDOC2 ---
PALLIATIVE CARE Palliative Care Note Palliative Care Patient remains on BiPap 40%. Does not respond to verbal /tactile stimuli. RR 36 Requested by Noe--son and Leydi --sister to meet again and review goals/ plan of care. Reviewed medical condition. Respiratory failure, pulmonary edema; RI; Pulmonary Fibrosis; Neo and Leydi shared that patient wanted everything done because she thought she was going to get better. Family understands that even with aggressive care patient has continued to decline. Noe states he wants his mother to "go peacefully" and he sees her as "suffering" now Discussed options for care; Continue current aggressive care vs comfort. Noe and Leydi request comfort care. Discussed medications for comfort care and removal of BiPap and allow patient to peacefully and comfortably. Noe and Leydi requested DNR/DNI. They are concerned about other family members (not agreeing with their decision ) and would like to give some the opportunity to see patient before making any changes. Leydi will call her associate account manager and they would also like boiler tenders supervisor to visit. They describe patient as being consumed by her health challenges the last 5-10 years. "She would not want to suffer" Patient had to make similar decisions for her mother Patient enjoyed sewing and being with people. Graduated with Honors. Worked for the [employer]. They do not believe she would want to spend the rest of her life in a facility. Discussed removal of BiPap after receiving medication for breathlessness and anxiety---stopping all medications that are not adding to her comfort. Liang MÁRQUEZ. Dr Mcclendon updated. Dr. Ward paged for orders. Plan; DNR/DNI per family request. Dr. Ward/ Dr. Mcclendon to order meds. Removal of BiPap and allow nature to take its course. BETH YEPEZ Sep 07, 2018 12:09
[2018-09-07] MEDS ORDERED: MORPHINE SULFATE 4 MG/ML VIAL. IV ONE (12:15)
[2018-09-07] MEDS ORDERED: MORPHINE SULFATE/PF 30 ML IV SCH (12:15)
[2018-09-07] MEDS ORDERED: MORPHINE SULFATE 4 MG/ML VIAL. IM ONE (13:30)
[2018-09-07] MEDS: MORPHINE SULFATE/PF 30 ML IV PRN ×2 (13:45→17:54)
--- NOTE | 2018-09-07 13:50 | NUR ---
Withdrew care at 1300. Administered 4mg IV morphine and 1mg IV ativan. Removed Bipap placed on 2 LNC. At 1320 patients RR still in the 40's, administered another 4mg IV morphine and started MANAGER ENTERPRISE morphine drip at 2mg/hr per Dr Mcclendon. Patients family at bedside. Will continue to monitor for comfort.
--- NOTE | 2018-09-07 15:15 | PDOC ---
PULMONARY PROGRESS NOTES Subjective PT ON BIPAP ABG NOTED NO DIFFERENT FROM YESTERDAY HIGH RR PT SEEN THIS AM Vitals Vital Signs Date Time Temp Pulse Resp B/P (MAP) Pulse Ox O2 Delivery O2 Flow Rate FiO2 09/07/18 14:52 28 80 Nasal Cannula 2.0 09/07/18 11:00 115 130/71 (90) 09/07/18 08:00 98.7 98.7 General: Alert, Moderate Distress Lungs: Crackles Cardiovascular: S1, S2 Abdomen: Soft Neuro Exam: Alert Extremities: Other (EDEMA) Skin: Warm Labs Laboratory Tests Test 09/05/18 16:58 09/06/18 05:15 09/06/18 08:21 09/06/18 14:30 Glucose (Fingerstick) 234 mg/dL (70-99) 228 mg/dL (70-99) 270 mg/dL (70-99) White Blood Count 20.9 x10^3/uL (4.0-11.0) Red Blood Count 3.43 x10^6/uL (3.50-5.40) Hemoglobin 9.4 g/dL (12.0-15.5) Hematocrit 29.3 % (36.0-47.0) Mean Corpuscular Volume 86 fL (79-100) Mean Corpuscular Hemoglobin 28 pg (25-35) Mean Corpuscular Hemoglobin Concent 32 g/dL (31-37) Red Cell Distribution Width 14.4 % (11.5-14.5) Platelet Count 224 x10^3/uL (140-400) Neutrophils (%) (Auto) 95 % (31-73) Lymphocytes (%) (Auto) 2 % (24-48) Monocytes (%) (Auto) 4 % (0-9) Eosinophils (%) (Auto) 0 % (0-3) Basophils (%) (Auto) 0 % (0-3) Neutrophils # (Auto) 19.8 x10^3uL (1.8-7.7) Lymphocytes # (Auto) 0.3 x10^3/uL (1.0-4.8) Monocytes # (Auto) 0.8 x10^3/uL (0.0-1.1) Eosinophils # (Auto) 0.0 x10^3/uL (0.0-0.7) Basophils # (Auto) 0.0 x10^3/uL (0.0-0.2) Prothrombin Time 21.1 SEC (11.7-14.0) Prothromb Time International Ratio 1.9 (0.8-1.1) Sodium Level 149 mmol/L (136-145) Potassium Level 3.3 mmol/L (3.5-5.1) Chloride Level 109 mmol/L (98-107) Carbon Dioxide Level 32 mmol/L (21-32) Anion Gap 8 (6-14) Blood Urea Nitrogen 48 mg/dL (7-20) Creatinine 1.2 mg/dL (0.6-1.0) Estimated GFR (Cockcroft-Gault) 53.9 Glucose Level 290 mg/dL (70-99) Calcium Level 10.8 mg/dL (8.5-10.1) Test 09/06/18 18:12 09/07/18 05:15 09/07/18 08:00 Glucose (Fingerstick) 261 mg/dL (70-99) White Blood Count 25.6 x10^3/uL (4.0-11.0) Red Blood Count 3.26 x10^6/uL (3.50-5.40) Hemoglobin 9.1 g/dL (12.0-15.5) Hematocrit 28.6 % (36.0-47.0) Mean Corpuscular Volume 88 fL (79-100) Mean Corpuscular Hemoglobin 28 pg (25-35) Mean Corpuscular Hemoglobin Concent 32 g/dL (31-37) Red Cell Distribution Width 14.6 % (11.5-14.5) Platelet Count 171 x10^3/uL (140-400) Neutrophils (%) (Auto) 94 % (31-73) Lymphocytes (%) (Auto) 1 % (24-48) Monocytes (%) (Auto) 5 % (0-9) Eosinophils (%) (Auto) 0 % (0-3) Basophils (%) (Auto) 0 % (0-3) Neutrophils # (Auto) 24.0 x10^3uL (1.8-7.7) Lymphocytes # (Auto) 0.3 x10^3/uL (1.0-4.8) Monocytes # (Auto) 1.3 x10^3/uL (0.0-1.1) Eosinophils # (Auto) 0.0 x10^3/uL (0.0-0.7) Basophils # (Auto) 0.1 x10^3/uL (0.0-0.2) Sodium Level 152 mmol/L (136-145) Potassium Level 3.4 mmol/L (3.5-5.1) Chloride Level 112 mmol/L (98-107) Carbon Dioxide Level 32 mmol/L (21-32) Anion Gap 8 (6-14) Blood Urea Nitrogen 49 mg/dL (7-20) Creatinine 1.0 mg/dL (0.6-1.0) Estimated GFR (Cockcroft-Gault) 66.5 Glucose Level 343 mg/dL (70-99) Calcium Level 11.2 mg/dL (8.5-10.1) Phosphorus Level 2.2 mg/dL (2.6-4.7) Magnesium Level 2.7 mg/dL (1.8-2.4) O2 Saturation 95 % (92-99) Arterial Blood pH 7.53 (7.35-7.45) Arterial Blood pCO2 at Patient Temp 36 mmHg (35-46) Arterial Blood pO2 at Patient Temp 71 mmHg (65-108) Arterial Blood HCO3 30 mmol/L (21-28) Arterial Blood Base Excess 7 mmol/L (-3-3) FiO2 40 Laboratory Tests Test 09/06/18 18:12 09/07/18 05:15 09/07/18 08:00 Glucose (Fingerstick) 261 mg/dL (70-99) White Blood Count 25.6 x10^3/uL (4.0-11.0) Red Blood Count 3.26 x10^6/uL (3.50-5.40) Hemoglobin 9.1 g/dL (12.0-15.5) Hematocrit 28.6 % (36.0-47.0) Mean Corpuscular Volume 88 fL (79-100) Mean Corpuscular Hemoglobin 28 pg (25-35) Mean Corpuscular Hemoglobin Concent 32 g/dL (31-37) Red Cell Distribution Width 14.6 % (11.5-14.5) Platelet Count 171 x10^3/uL (140-400) Neutrophils (%) (Auto) 94 % (31-73) Lymphocytes (%) (Auto) 1 % (24-48) Monocytes (%) (Auto) 5 % (0-9) Eosinophils (%) (Auto) 0 % (0-3) Basophils (%) (Auto) 0 % (0-3) Neutrophils # (Auto) 24.0 x10^3uL (1.8-7.7) Lymphocytes # (Auto) 0.3 x10^3/uL (1.0-4.8) Monocytes # (Auto) 1.3 x10^3/uL (0.0-1.1) Eosinophils # (Auto) 0.0 x10^3/uL (0.0-0.7) Basophils # (Auto) 0.1 x10^3/uL (0.0-0.2) Sodium Level 152 mmol/L (136-145) Potassium Level 3.4 mmol/L (3.5-5.1) Chloride Level 112 mmol/L (98-107) Carbon Dioxide Level 32 mmol/L (21-32) Anion Gap 8 (6-14) Blood Urea Nitrogen 49 mg/dL (7-20) Creatinine 1.0 mg/dL (0.6-1.0) Estimated GFR (Cockcroft-Gault) 66.5 Glucose Level 343 mg/dL (70-99) Calcium Level 11.2 mg/dL (8.5-10.1) Phosphorus Level 2.2 mg/dL (2.6-4.7) Magnesium Level 2.7 mg/dL (1.8-2.4) O2 Saturation 95 % (92-99) Arterial Blood pH 7.53 (7.35-7.45) Arterial Blood pCO2 at Patient Temp 36 mmHg (35-46) Arterial Blood pO2 at Patient Temp 71 mmHg (65-108) Arterial Blood HCO3 30 mmol/L (21-28) Arterial Blood Base Excess 7 mmol/L (-3-3) FiO2 40 Medications Active Scripts Medications Dose Route/Sig Max Daily Dose Days Date Category Hydralazine Hcl 10 Mg Tablet 1 Tab PO BID 09/03/18 Reported Hydralazine Hcl 10 Mg Tablet 1 Tab PO BID 08/19/17 Rx Cefpodoxime Proxetil 200 Mg Tablet 1 Tab PO BID 08/19/17 Rx Esomeprazole Magnesium 40 Mg Capsule.dr 40 Mg PO DAILY07 08/14/17 Reported Montelukast Sodium Tablet (Montelukast Sodium) 10 Mg Tablet 10 Mg PO HS 08/14/17 Reported Glimepiride 2 Mg Tablet 1 Mg PO DAILY 08/14/17 Reported Magnesium Oxide 400 Mg Tablet 1 Tab PO DAILY 02/20/17 Reported Xopenex Hfa (Levalbuterol Tartrate) 15 Gm Hfa.aer.ad 45 Gm IH 02/20/17 Reported Lortab 5-325 mg Tablet (Hydrocodone/Acetaminophen) 1 Each Tablet 1 Tab PO PRN Q6HRS PRN 02/15/16 Rx Cellcept (Mycophenolate Mofetil) 500 Mg Tablet 750 Mg PO BID 09/09/14 Reported Vitamin B-12 (Cyanocobalamin (Vitamin B-12)) 1,000 Mcg Tablet 1 Tab PO DAILY 09/09/14 Reported Artificial Tears Eye Drops (Dextran 70/Hypromellose) 15 Ml Drops 1 Drop EACHEYE QID 09/09/14 Reported Restasis (Cyclosporine) 1 Each Droperette 1 Drop EACHEYE BID 06/05/14 Reported Aspir 81 (Aspirin) 81 Mg Tablet.dr 1 Tab PO BID 06/05/14 Reported Vitamin C (Ascorbic Acid) 500 Mg Tablet 500 Mg PO DAILY 06/05/14 Reported Ferrous Sulfate 325 Mg Tablet 1 Tab PO TID 06/05/14 Reported Calcium 500 + D Tablet (Calcium Carbonate/Vitamin D3) 1 Each Tablet 1 Each PO DAILY 06/05/14 Reported Carafate (Sucralfate) 1 Gm Tablet 1 Tab PO BID 06/05/14 Reported Duoneb 0.5 Mg-3 Mg/3 Ml Soln (Ipratropium/Albuterol Sulfate) 3 Ml Ampul.neb 3 Ml IH QID 08/30/13 Reported Lyrica (Pregabalin) 100 Mg Capsule 200 Mg PO BID 08/29/13 Reported Plaquenil (Hydroxychloroquine Sulfate) 200 Mg Tablet 200 Mg PO BID 08/29/13 Reported Percocet 5-325 Mg Tablet (Oxycodone/Acetaminophen) 1 Each Tablet 1 Each PO Q4HRS PRN 08/29/13 Reported Toprol Xl (Metoprolol Succinate) 50 Mg Tab.er.24h 50 Mg PO DAILY 08/29/13 Reported Levothyroxine Sodium 50 Mcg Tablet 25 Mcg PO DAILY 08/29/13 Reported Reglan (Metoclopramide Hcl) 10 Mg Tablet 10 Mg PO QIDACHS 08/29/13 Reported Benazepril Hcl 10 Mg Tablet 5 Mg PO DAILY 08/29/13 Reported Lipitor (Atorvastatin Calcium) 10 Mg Tablet 10 Mg PO DAILY 08/29/13 Reported Coumadin (Warfarin Sodium) 5 Mg Tablet 4 Mg PO DAILY 08/29/13 Reported Lasix (Furosemide) 20 Mg Tablet 20 Mg PO BID 08/29/13 Reported Claritin (Loratadine) 10 Mg Capsule 10 Mg PO DAILY 08/29/13 Reported Antivert (Meclizine Hcl) 12.5 Mg Tablet 12.5 Mg PO TID PRN 08/29/13 Reported Asmanex (Mometasone Furoate) 110 Mcg Aer.pow.ba 2 Puff IH BID 08/29/13 Reported Zofran Odt (Ondansetron) 8 Mg Tab.rapdis 8 Mg PO 08/29/13 Reported Impression . IMPRESSION: 1. Idiga-zn-okfuftg respiratory failure secondary to multifactorial etiologie 2. Acute metabolic acidosis 3. SEPSIS 4. History of extensive pulmonary fibrosis REVIEWED CT OF 2017 with end-stage honeycombing, on home oxygen chronically. 5. History of scleroderma, on CellCept, immunosuppressed. 6. LEUKOCYTOSIS 7. Escherichia coli urinary tract infection. 8. Coagulopathy 9. History of pulmonary embolism and deep venous thrombosis, on chronic anticoagulation with Coumadin. 10. ACUTE BLOOD LOSS ANEMIA BLOOD CULTURE Final GRAM NEGATIVE RODS SEEN IN 2 OF 4 BOTTLES; 2 SETS WERE DRAWN; RESULTS WERE CALLED TO SHAHNAZ CARLOS IN ICU AT 0840; 09/02/18 BY ERIC. THE BLOOD CULTURES HAVE BEEN SENT TO [facility] FOR FURTHER WORKUP. URINE CULTURE Final Final report URINE CULTURE RES 1 Final Escherichia coli Greater than 100,000 colony forming units per mL Cefazolin <=4 ug/mL Cefazolin with an ARLETTE <=16 predicts susceptibility to the oral agents cefaclor, cefdinir, cefpodoxime, cefprozil, cefuroxime, cephalexin, and loracarbef when used for therapy of uncomplicated urinary tract infections due to E. coli, Klebsiella pneumoniae, and Proteus mirabilis. ANTIMICROBIAL SUSCEPTIBILITY Final Comment S = Susceptible; I = Intermediate; R = Resistant P = Positive; N = Negative MICS are expressed in micrograms per mL Antibiotic RSLT#1 RSLT#2 RSLT#3 RSLT#4 Amoxicillin/Clavulanic Acid S =8 Ampicillin R>=32 Cefepime S<=0.12 Ceftriaxone S<=0.25 Cefuroxime S =4 Ciprofloxacin S<=0.25 Ertapenem S<=0.12 Gentamicin S<=1 Imipenem S<=0.25 Levofloxacin S<=0.12 Meropenem S<=0.25 Nitrofurantoin S<=16 Piperacillin/Tazobactam S<=4 Tetracycline S<=1 Tobramycin S<=1 Trimethoprim/Sulfa R>=320 Performed at: DA - [facility] [id number], [place], [place] [id number] Plan . SPOKE WITH DR PEDRO CAMPOS TO HAVE CONVERSATION WITH FAMILY SPOKE WITH PT PT NOW A DNR WILL PROVIDE COMFORT CARE PER FAMILY WISHES SEE ORDERS FOR ATIVAN AND MORPHINE REBEKAH ROWLAND MD Sep 07, 2018 15:15
--- NOTE | 2018-09-07 20:55 | NUR ---
Patients pronounced at this time patient had respirations in the 60's and O2 sats in the 30's. Patient started VTach and went to 100% AV pace with no response. Heart beat checked by two RN's at this time for two minutes. Patients family in the room and handling well at this time. Family unsure of which home their mother had set up at this time. [place] notified, not eligible
--- NOTE | 2018-09-11 15:38 | PDOC ---
Provider Note Provider Note summary dictated. #[id number] CHARLES VASQUEZ MD Sep 11, 2018 15:38
--- NOTE | 2018-09-11 22:42 | DS ---
DATE OF DISCHARGE: 09/08/2018 REASON FOR ADMISSION TO THE HOSPITAL: Sepsis, hypotension, respiratory failure. CONSULTATIONS: Dr. Mcclendon; Dr. Peck; Dr. Mcdaniel, Infectious Disease; Cardiology, Dr. Juarez. PROCEDURES DONE: CT head, CT of the abdomen and pelvis, BiPAP placement. HOSPITAL COURSE: The patient was a 68-year-old female. The patient had been sick for a while. She had interstitial pulmonary lung disease and had also scleroderma and she was on immune supplements. She was on chronic oxygen. She also had diabetes, hypotension, pacemaker. Her health had been declining lately. She was not feeling well with change in mental status, fever, brought to the hospital, was found to be septic, hypotension, was admitted to the ICU. Her blood cultures were positive 2/4 for Gram-negative, urinalysis was also Gram-negative, both of them came back as E. coli, was treated with IV antibiotics, IV steroids, oxygen, breathing treatment. The patient did improve for a while, then she declined. She had black stools. It was felt maybe she had a GI bleed, but hemoglobin remained stable. Seen by GI. CT scan of the abdomen and pelvis, no acute findings. The patient had a CT head, no acute lesion. Her hemoglobin went low to less than 7, was given 1 unit of packed RBC. It remained stable after that. She was also on Coumadin for chronic DVT, pulmonary embolism and INR was monitored. At one time, she had a coagulopathy with INR close to 7. Vitamin K was given. The patient continued to have problem with respiratory failure, had developed flash pulmonary edema, was given Lasix. She was placed on BiPAP and after that she did not recover much and continued to decline, had Palliative team consult discuss with the family and finally they were agreeable to comfort care and the patient on 09/07/2018. FINAL DIAGNOSES: 1. Acute sepsis with hypotension. 2. Escherichia coli bacteremia and uti. 3. Non-ST elevation myocardial infarction with elevated troponin. 4. Possible gastrointestinal bleed. 5. Interstitial lung disease. 6. Flash pulmonary edema. 7. Chronic respiratory failure. 8. Scleroderma. 9. Diabetes. 10. Immune compromised. The patient from medical causes. CHARLES VASQUEZ MD DR: GERALDO/lakhwinder JOB#: [id number] / [id number]
== END 2018-09-08 00:14 | disposition expired | DRG 871 ==
LOC: ER 21:44 → 1 WEST ICU 23:42
PROVIDERS: ADMIT Internal Medicine; ATTEND Internal Medicine
PROC: 30233N1 Transfusion of Nonautologous Red Blood Cells into Peripheral Vein, Percutaneous Approach (ICD-10-PCS; principal; 2018-09-02)
PROC: 5A09357 Assistance with Respiratory Ventilation, Less than 24 Consecutive Hours, Continuous Positive Airway Pressure (ICD-10-PCS; 2018-09-03)
PROC: 5A09357 Assistance with Respiratory Ventilation, Less than 24 Consecutive Hours, Continuous Positive Airway Pressure (ICD-10-PCS; 2018-09-04)
PROC: 5A09457 Assistance with Respiratory Ventilation, 24-96 Consecutive Hours, Continuous Positive Airway Pressure (ICD-10-PCS; 2018-09-05)
PROC: 02HV33Z Insertion of Infusion Device into Superior Vena Cava, Percutaneous Approach (ICD-10-PCS; 2018-09-05)
DX: A41.9 Sepsis, unspecified organism (principal); I21.4 Non-ST elevation (NSTEMI) myocardial infarction; J18.9 Pneumonia, unspecified organism; J96.20 Acute and chronic respiratory failure, unspecified whether with hypoxia or hypercapnia; N17.0 Acute kidney failure with tubular necrosis; N39.0 Urinary tract infection, site not specified; J44.0 Chronic obstructive pulmonary disease with (acute) lower respiratory infection; E87.1 Hypo-osmolality and hyponatremia; D68.9 Coagulation defect, unspecified; D62 Acute posthemorrhagic anemia; K92.2 Gastrointestinal hemorrhage, unspecified; E87.0 Hyperosmolality and hypernatremia; I49.5 Sick sinus syndrome; I48.91 Unspecified atrial fibrillation; I50.9 Heart failure, unspecified; I11.0 Hypertensive heart disease with heart failure; M79.7 Fibromyalgia; M34.9 Systemic sclerosis, unspecified; K58.9 Irritable bowel syndrome, unspecified; K21.9 Gastro-esophageal reflux disease without esophagitis; J84.10 Pulmonary fibrosis, unspecified; G20 Parkinson's disease; E03.9 Hypothyroidism, unspecified; M19.90 Unspecified osteoarthritis, unspecified site; B96.20 Unspecified Escherichia coli [E. coli] as the cause of diseases classified elsewhere; F32.9 Major depressive disorder, single episode, unspecified; F41.9 Anxiety disorder, unspecified; Z51.5 Encounter for palliative care; E11.9 Type 2 diabetes mellitus without complications; E87.6 Hypokalemia; E78.5 Hyperlipidemia, unspecified; I95.9 Hypotension, unspecified; E83.42 Hypomagnesemia; D89.9 Disorder involving the immune mechanism, unspecified; Z87.11 Personal history of peptic ulcer disease; M81.0 Age-related osteoporosis without current pathological fracture; Z86.19 Personal history of other infectious and parasitic diseases; Z88.6 Allergy status to analgesic agent; Z88.1 Allergy status to other antibiotic agents; Z86.718 Personal history of other venous thrombosis and embolism; Z86.711 Personal history of pulmonary embolism; Z79.01 Long term (current) use of anticoagulants; Z90.710 Acquired absence of both cervix and uterus; Z83.3 Family history of diabetes mellitus; Z99.81 Dependence on supplemental oxygen; Z82.49 Family history of ischemic heart disease and other diseases of the circulatory system; Z88.0 Allergy status to penicillin; Z88.2 Allergy status to sulfonamides
CPT/HCPCS: 36415; 36569; 36600; 70450; 71045; 74176; 80048; 80053; 80061; 81001; 82553; 82805; 82962; 83036; 83605; 83735; 84100; 84443; 84484; 85007; 85018; 85025; 85027; 85610; 85730; 86850; 86900; 86901; 86920; 87040; 87077; 87086; 87186; 87205; 87641; 87804; 93005; 93306; 94640; 94660; 94760; 96365; 96375; 99291; C9113; J0780; J1815; J1940; J1956; J2060; J2185; J2270; J2405; J2920; J2930; J3370; J3430; J3475; J3490; J7030; J7040; J7050; J7517; J7620; J7626; J7644; J8597; P9016